=== PATIENT | male | born 1950 | race Caucasian/White ===

== ENCOUNTER 2021-06-28 12:33 | Outpatient (RCR) | payer MEDICARE, SELFPAY | END 2021-07-20 09:45 | disposition home or self-care (01) | LOC: HO.WCC 12:33 | PROVIDERS: PCP Internal Medicine; Visit Provider Surgery | DX: E11.621 Type 2 diabetes mellitus with foot ulcer (principal); L97.522 Non-pressure chronic ulcer of other part of left foot with fat layer exposed; E11.52 Type 2 diabetes mellitus with diabetic peripheral angiopathy with gangrene; I96 Gangrene, not elsewhere classified | CPT/HCPCS: 97597; 99213 ==

== ENCOUNTER 2021-07-15 10:02 | Inpatient (IN) | payer MEDICARE, SELFPAY ==
--- NOTE | ~2021-07-15 | XR_ITS ---
EXAMINATION: XR FOOT, LEFT CLINICAL INFORMATION: Left foot infection. Evaluate for osteomyelitis. COMPARISON: None TECHNIQUE: AP, lateral, and oblique views of the left foot. FINDINGS: Soft tissue swelling at the distal aspect of the 1st phalanx with a linear metallic density measuring up to 0.5 cm in length. Findings may represent a foreign body. There is an adjacent osseous erosion along the plantar/lateral aspect of the 1st distal phalanx measuring up to 0.5 cm. Findings are concerning for osteomyelitis. Joint space narrowing with marginal osteophytes at the 1st metatarsophalangeal and interphalangeal joints. Degenerative spurring along the dorsal midfoot. Plantar calcaneal spur. Atherosclerotic calcifications. XR/XR foot LT min 3V IMPRESSION: Soft tissue swelling at the distal aspect of the 1st phalanx with a linear possible metallic foreign body measuring up to 0.5 cm and adjacent osseous erosion. Findings are concerning for cellulitis and osteomyelitis. Degenerative arthritis at the dorsal midfoot as well as at the 1st metatarsophalangeal and interphalangeal joints.
--- NOTE | ~2021-07-15 | US_ITS ---
EXAMINATION: US NON-INVASIVE ASSESSMENT OF THE ARTERIES OF BOTH LOWER EXTREMITIES WITH PVR EXAM AND BILATERAL LOWER EXTREMITY DUPLEX Carlos Loving MD CLINICAL INFORMATION: Non-healing left foot ulcer. COMPARISON: None TECHNIQUE: Ankle pulse volume recordings, ankle pressure measurements and ankle brachial indices were obtained of the lower extremity arterial system bilaterally in addition to duplex Doppler techniques with wave form analysis and measurement of velocities in the common femoral, profunda femoral, superficial femoral, popliteal and tibial arteries. The study was performed only at rest. FINDINGS: AT REST: Right Le. The right ankle-brachial index is: 1.39. * >0.97-1.25 = normal - no significant arterial disease * 0.75-0.96 = mild peripheral arterial disease * 0.5-0.74 = moderate peripheral arterial disease * <0.50 = severe peripheral arterial disease 2. Right ankle pressure: normal. 3. Right ankle PVR waveform: normal. 4. Right direct duplex Doppler findings: Common Femoral: 96. Profunda Femoris: 104. Proximal SFA: 73. Mid SFA: 87. Distal SFA: 71. Popliteal: 54. Peroneal: 184. Tibial: 68. Mild plaque is present. Triphasic flow is present throughout with the exception of the posterior tibial artery where there is monophasic flow. Right groin lymph node measured 4.2 x 0.7 x 1.3 cm and appeared morphologically normal. Left Le. The left ankle-brachial index is: 1.38. * >0.97-1.25 = normal - no significant arterial disease * 0.75-0.96 = mild peripheral arterial disease * 0.5-0.74 = moderate peripheral arterial disease * <0.50 = severe peripheral arterial disease 2. Left ankle pressure: normal. 3. Left ankle PVR waveform: normal. 4. Left direct duplex Doppler findings: Common Femoral: 129. Profunda Femoris: 76. Proximal SFA: 94. Mid SFA: 111. Distal SFA: 97. Popliteal: 147. Tibial: 125. Mild plaque is present. Triphasic flow is present with monophasic flow seen from the mid SFA downwards with the exception of the distal SFA. Multiple left groin lymph nodes are present with the largest measuring 2.8 x 0.9 x 2.7 cm. US/US arterial duplex LE BI IMPRESSION: No convincing evidence of significant macroscopic vascular disease with normal ABIs bilaterally. Distal tibial disease is present.
--- NOTE | ~2021-07-15 | XR_ITS ---
EXAMINATION: XR CHEST CLINICAL INFORMATION: This is a 71-year-old male who is status post PICC line placement for atrial fibrillation and venous access. COMPARISON: None TECHNIQUE: Frontal view of the chest was obtained. FINDINGS: There is no pneumothorax. There is a right-sided PICC line with the tip at the cavoatrial junction. There is cardiomegaly. There is mild central venous prominence. There is likely linear atelectasis in the left lower lobe. There is a possible hiatal hernia present. There is no evidence of pneumonia. XR/XR chest 1V IMPRESSION: 1. The PICC line tip is seen at the cavoatrial junction is is ready to use. 2. Cardiomegaly.
--- NOTE | ~2021-07-15 | CT_ITS ---
EXAMINATION: CT FOOT WITH CONTRAST, LEFT CLINICAL INFORMATION: Foreign body. Osteomyelitis. COMPARISON: Left foot radiographs done earlier the same day. TECHNIQUE: Contiguous axial CT images of the left foot were obtained following the IV administration of 85 mL Omnipaque 350 contrast. Multiplanar reformats were provided and reviewed. This CT examination was performed using dose optimization techniques as appropriate, variously including the following: *Automated exposure control *Adjustment of mA and/or kV according to patient size (this includes techniques or standardized protocols for targeted exams where dose is matched to indication/reason for exam; i.e. extremities or head) *Use of iterative reconstruction technique DOSE: 185 mGy-cm. FINDINGS: Linear metallic density along the lateral plantar surface of the 1st distal phalanx measuring up to 0.8 cm in AP dimension and consistent with a radiopaque foreign body. This was seen on the prior radiographs. There is skin thickening adjacent to the distal 1st phalanx with soft tissue air within the nailbed. Findings are consistent with cellulitis. No organized fluid collection/abscess formation. There is a corticated defect along the plantar surface of the 1st metatarsal head, which could indicate chronic osteomyelitis. Skin thickening and soft tissue swelling/edema at the 2nd and 3rd toes without an organized fluid collection or abscess formation. More mild soft tissue edema and skin thickening within the 4th and 5th toes as well as along the plantar surface of the forefoot. Findings are consistent with cellulitis. No abscess formation. No additional osseous erosion to suggest acute osteomyelitis. Joint space narrowing with marginal osteophytes throughout the midfoot, most prominent at the medial cuneonavicular joint. Plantar and dorsal calcaneal enthesophytes. No concerning lytic or blastic osseous lesion. Multiple corticated ossifications adjacent to the medial malleolus consistent with remote fracture fragments. No acute fracture or dislocation. Prominent atherosclerotic calcifications. The visualized flexor and extensor tendons are intact. Diffuse muscle atrophy. CT/CT foot LT w con IMPRESSION: 1. Linear, metallic foreign body along the plantar/lateral aspect of the 1st distal phalanx as seen on the prior radiographs. Adjacent soft tissue swelling and edema consistent with cellulitis. No abscess formation. Corticated erosion along the plantar aspect of the 1st distal phalanx, which could indicate chronic osteomyelitis. 2. Additional soft tissue swelling and edema within the toes and plantar aspect of the forefoot, most prominent at the 2nd and 3rd toes which could represent cellulitis. No abscess formation. No additional osseous erosion. Early osteomyelitis may be occult on CT examination and if there is persistent clinical concern, MRI without and with contrast could help further evaluate.
[2021-07-15 10:10] VITALS: BP 145/78; PULSE 87; RESP 17; TEMP 36.5; O2SAT 98; BMI 32.5
--- NOTE | 2021-07-15 10:30 | ED_ITS ---
HPI - General Adult General Chief complaint: Wound/Laceration <MICKY Willoguhby - Last Filed: 07/15/21 13:38> Stated complaint: wound check <MICKY Willoughby - Last Filed: 07/15/21 13:38> Time Seen by Provider: 07/15/21 10:25 <MICKY Willoughby - Last Filed: 07/15/21 13:38> History of Present Illness HPI narrative: Patient presents today with a complaint of a worsening wound and worsening skin on left foot He has known gangrene of the 4th toe, he recently had a revascularization procedure which went well, but noted after the last 3 or 4 days some drainage from the area and some worsening redness He denies fever chills no dizziness no headache <MICKY Willoughby - Last Filed: 07/15/21 13:38> Related Data Home medications: Home Medications Medication Instructions Recorded Confirmed Lactobacillus rhamnosus GG 10 1 cap PO DAILY 07/15/21 07/15/21 billion cell capsule (Culturelle) atorvastatin 40 mg tablet 40 mg PO DAILY 07/15/21 07/15/21 carvedilol 25 mg tablet 25 mg PO BID 07/15/21 07/15/21 furosemide 40 mg tablet 40 mg PO BID 07/15/21 07/15/21 lorazepam 0.5 mg tablet 1 - 2 tab PO TID PRN 07/15/21 07/15/21 metformin 500 mg tablet,extended 4 tab PO DAILY 07/15/21 07/15/21 release 24 hr rivaroxaban 20 mg tablet (Xarelto) 1 tab PO BEDTIME 07/15/21 07/15/21 sacubitril 24 mg-valsartan 26 mg 1 tab PO BID 07/15/21 07/15/21 tablet (Entresto) sitagliptin 100 mg tablet (Januvia) 1 tab PO DAILY 07/15/21 07/15/21 <MICKY Willoughby - Last Filed: 07/15/21 13:38> Allergies/adverse reactions: Allergies Allergy/AdvReac Type Severity Reaction Status Date / Time No Known Allergies Allergy Verified 07/15/21 10:33 <MICKY Willoughby - Last Filed: 07/15/21 13:38> Review of Systems Review of Systems: Positive for left foot wound and infection as well as gangrene of the 4th toe Negatives are no fever no chills no dizziness no weakness no headache no neck pain no chest pain no shortness of breath no abdominal pain no nausea vomiting or diarrhea no changes to bowel or bladder <MICKY Willoughby - Last Filed: 07/15/21 13:38> Yes all other systems are reviewed and are negative <MICKY Willoughby - Last Filed: 07/15/21 13:38> PMFSH Past Medical History Source: nursing notes reviewed <MICKY Willoughby - Last Filed: 07/15/21 13:38> Medical History: Medical History Chronic systolic (congestive) heart failure Diabetes mellitus HLD (hyperlipidemia) HTN (hypertension) Paroxysmal atrial fibrillation Peripheral vascular disease Traumatic subdural hematoma <MICKY Willoughby - Last Filed: 07/15/21 13:38> Surgical History: Surgical History H/O angioplasty <MICKY Willoughby - Last Filed: 07/15/21 13:38> Family History Family History: Family History Father No problems noted. <MICKY Willoughby - Last Filed: 07/15/21 13:38> Social History Social History: Social History Alcohol intake: former Year quit: 1999 Patient Tobacco Use Status: Never used Tobacco Use of substances other than those prescribed or required for medical reasons: No Advance Directives: Yes Advance Directives Information Provided: Yes Advance Directives on File: No <MICKY Willoughby - Last Filed: 07/15/21 13:38> Physical Exam ED Vital Signs: Vital Signs - 24 hr 07/15/21 10:10 07/15/21 12:03 Temperature 97.7 F 98.1 F Pulse Rate 87 79 Respiratory Rate 17 18 Blood Pressure 145/78 H 147/69 H Pulse Oximetry 98 98 BMI result Body Mass Index 32.5 <MICKY Willoughby - Last Filed: 07/15/21 13:38> General appearance is no acute distress comfortable Head is normocephalic atraumatic Pupils equal round reactive to light, extraocular motions are intact Neck is supple Chest is clear to auscultation bilateral Heart no murmur Abdomen soft nontender Extremities full range of motion x4 The left foot has redness over dorsum of the foot there is an area of skin just proximal to the toes that is very red with some watery discharge, the 4th toe is black, but pulses are easily detected by Doppler, and patient can move all the toes Other extremities normal Neuro patient is A&O x3, balance is normal, motor is 5/5 x4 <MICKY Willoughby - Last Filed: 07/15/21 13:38> Course Course Course Narrative: Patient was sent for x-ray of the foot and there was evidence of osteomyelitis in the big toe Family also reports worsening redness over past several days so it was decided to admit patient for osteomyelitis and cellulitis of the left foot Lactate and white count were normal, renal function was normal, bilirubin was mildly elevated at 1.5 Case was discussed by text with hospitalist srinivasan and patient was admitted to medical service Patient requested that I contact Dr. mistry phon [phone] who is the vascular surgeon that revascularize the foot last week, he said the procedure had gone well but he had been concerned when the patient called this morning and had recommended go to the ER to discuss possible admission <MICKY Willoughby Last Filed: 07/15/21 13:38> Medical Decision Making Lab Data Lab results reviewed: Yes I reviewed the patient's lab results. <MICKY Willoughby Last Filed: 07/15/21 13:38> Result diagrams: : 07/15/21 12:21 07/15/21 12:21 <MICKY Willoughby Last Filed: 07/15/21 13:38> Labs: Lab Results 07/15/21 07/15/21 07/15/21 Range/Units 12:21 12:21 12:21 WBC 10.1 (4.8-10.8) X10*3/uL RBC 4.60 (4.60-5.80) X10*6/uL Hgb 12.7 L (14.0-18.0) g/dl Hct 39.0 L (42.0-52.0) % MCV 84.8 (80.0-98.0) fL MCH 27.6 (27.0-33.0) pg MCHC 32.6 (31.0-36.0) g/dl RDW 15.9 (11.0-16.0) % Plt Count 228 (160-400) X10*3/uL MPV 9.4 (9.4-12.4) fL Immature Gran % (Auto) 0.3 (0.0-0.4) % Neut % (Auto) 81.5 H (45-73) % Lymph % (Auto) 8.7 L (20-40) % [place] % (Auto) 8.0 (2-11) % Eos % (Auto) 1.0 (0-4) % Baso % (Auto) 0.5 (0-2) % Lymph # (Auto) 0.9 L (1.2-4.9) X10*3/uL [place] # (Auto) 0.8 (0.1-1.2) X10*3/uL Eos # (Auto) 0.1 (0.0-0.4) X10*3/uL Baso # (Auto) 0.1 (0.0-0.2) X10*3/uL Abs Immat Gran (auto) 0.03 (0.00-0.03) X10*3/uL Absolute Neuts (auto) 8.3 (2.0-8.3) x10*3/uL Absolute Nucleated RBC 0.000 (0.0-0.012) X10*3/uL Nucleated RBC % (auto) 0.0 (0.0-0.2) /100WBC Sodium 135 (135-145) mmol/L Potassium 4.7 (3.3-5.1) mmol/L Chloride 99 (96-108) mmol/L Carbon Dioxide 28 (22-29) mmol/L Anion Gap 13 (12-20) BUN 16 (9-16) mg/dL Creatinine 0.87 (0.5-1.4) mg/dL Estim Creat Clear Calc 107.8 Estimated GFR > 60 Random Glucose 191 H (60-115) mg/dL Lactic Acid 0.9 (0.5-2.0) mmol/L Calcium 9.3 (8.4-10.2) mg/dL Total Bilirubin 1.5 H (0.0-1.0) mg/dL Direct Bilirubin 0.9 H (0.0-0.5) mg/dL AST 22 (5-37) U/L ALT 27 (0-40) U/L Alkaline Phosphatase 121 H (39-117) U/L Total Protein 7.2 (6.5-8.0) g/dL Albumin 3.5 (3.5-5.0) g/dL COVID-19 (RADHA) (Negative) COVID-19 Clin Com 07/15/21 Range/Units 12:21 WBC (4.8-10.8) X10*3/uL RBC (4.60-5.80) X10*6/uL Hgb (14.0-18.0) g/dl Hct (42.0-52.0) % MCV (80.0-98.0) fL MCH (27.0-33.0) pg MCHC (31.0-36.0) g/dl RDW (11.0-16.0) % Plt Count (160-400) X10*3/uL MPV (9.4-12.4) fL Immature Gran % (Auto) (0.0-0.4) % Neut % (Auto) (45-73) % Lymph % (Auto) (20-40) % [place] % (Auto) (2-11) % Eos % (Auto) (0-4) % Baso % (Auto) (0-2) % Lymph # (Auto) (1.2-4.9) X10*3/uL [place] # (Auto) (0.1-1.2) X10*3/uL Eos # (Auto) (0.0-0.4) X10*3/uL Baso # (Auto) (0.0-0.2) X10*3/uL Abs Immat Gran (auto) (0.00-0.03) X10*3/uL Absolute Neuts (auto) (2.0-8.3) x10*3/uL Absolute Nucleated RBC (0.0-0.012) X10*3/uL Nucleated RBC % (auto) (0.0-0.2) /100WBC Sodium (135-145) mmol/L Potassium (3.3-5.1) mmol/L Chloride (96-108) mmol/L Carbon Dioxide (22-29) mmol/L Anion Gap (12-20) BUN (9-16) mg/dL Creatinine (0.5-1.4) mg/dL Estim Creat Clear Calc Estimated GFR Random Glucose (60-115) mg/dL Lactic Acid (0.5-2.0) mmol/L Calcium (8.4-10.2) mg/dL Total Bilirubin (0.0-1.0) mg/dL Direct Bilirubin (0.0-0.5) mg/dL AST (5-37) U/L ALT (0-40) U/L Alkaline Phosphatase (39-117) U/L Total Protein (6.5-8.0) g/dL Albumin (3.5-5.0) g/dL COVID-19 (RADHA) Negative (Negative) COVID-19 Clin Com See Note <MICKY Willoughby - Last Filed: 07/15/21 13:38> Discharge Plan Discharge Clinical Impression: Foot osteomyelitis, left, Cellulitis of foot, left <MICKY Willoughby - Last Filed: 07/15/21 13:38> Patient Disposition: Home, Self-Care <MICKY Willoughby - Last Filed: 07/15/21 13:38>
--- NOTE | 2021-07-15 11:21 | PC.NURSE ---
PEDAL PULSES AUDIBLE WITH DOPPLER.
[2021-07-15 12:03] VITALS: BP 147/69; PULSE 79; RESP 18; TEMP 36.7; O2SAT 98
[2021-07-15 12:26] LABS: MANUAL DIFF FLAG NO
[2021-07-15 12:27] LABS: Basophils Absolute Auto 0.1 X10*3/uL (0.0-0.2); Basophils Percent Auto 0.5 % (0-2); Eosinophils Absolute Auto 0.1 X10*3/uL (0.0-0.4); Hemoglobin 12.7 g/dl (14.0-18.0); Imm Gran Abs Auto 0.03 X10*3/uL (0.00-0.03); Imm Gran Pct Auto 0.3 % (0.0-0.4); Lymphocytes Absolute Auto 0.9 X10*3/uL (1.2-4.9); Lymphocytes Percent Auto 8.7 % (20-40); Mean Corpuscular HGB Conc 32.6 g/dl (31.0-36.0); Mean Corpuscular Hemoglobin 27.6 pg (27.0-33.0); Mean Corpuscular Volume 84.8 fL (80.0-98.0); Mean Platelet Volume 9.4 fL (9.4-12.4); Monocytes Absolute Auto 0.8 X10*3/uL (0.1-1.2); Neutrophils Absolute Auto 8.3 x10*3/uL (2.0-8.3); Neutrophils Percent Auto 81.5 % (45-73); Platelet Count 228 X10*3/uL (160-400); Red Cell Distribution Width 15.9 % (11.0-16.0); White Blood Count 10.1 X10*3/uL (4.8-10.8)
[2021-07-15 12:37] LABS: Lactic Acid 0.9 mmol/L (0.5-2.0)
[2021-07-15] MEDS: Piperacillin Sodium/Tazobactam 3.375 GM in 0.9 % Sodium Chloride 50 ML IV ×2 (12:40→20:17)
[2021-07-15 12:48] LABS: COVID-19 Test Negative (Negative); IDNOW Serial# 16C4AD1C
[2021-07-15 13:19] LABS: Alanine Aminotransferase 27 U/L (0-40); Albumin Level 3.5 g/dL (3.5-5.0); Alkaline Phosphatase 121 U/L (39-117); Anion Gap 13 (12-20); Aspartate Amino Transferase 22 U/L (5-37); Bilirubin Direct 0.9 mg/dL (0.0-0.5); Bilirubin Total 1.5 mg/dL (0.0-1.0); Blood Urea Nitrogen 16 mg/dL (9-16); Calcium 9.3 mg/dL (8.4-10.2); Carbon Dioxide 28 mmol/L (22-29); Chloride 99 mmol/L (96-108); Creatinine Clr Calc Pharmacy 107.8; Estimated Glomerular Filt Rate > 60; Glucose Random 191 mg/dL (60-115); Potassium 4.7 mmol/L (3.3-5.1); Sodium 135 mmol/L (135-145); Total Protein 7.2 g/dL (6.5-8.0)
--- NOTE | 2021-07-15 13:38 | PC.NURSE ---
REPORT GIVEN TO VAUGHN KILPATRICK. PT MOVED TO MAIN ED FOR ADMISSION.
--- NOTE | 2021-07-15 13:55 | PHA.MEDREC ---
Pharmacy Consult ? Medication Reconciliation Pharmacy has completed the medication reconciliation.
--- NOTE | 2021-07-15 14:40 | PM.IMHP ---
History of Present Illness Date of Service: 07/15/21 Chief Complaint: worsening erythema left foot 71M with pmh PVD with left 4th toe dry gangrene s/p angioplasty 5 days ptp, presented with increasing area of erythema of left foot dorsum. Patient's left foot has been swollen erythematous for about 1 month, he has had dry gangrene of the 4th phalanx for about 2 weeks, he is following vascular and recently had an angioplasty. Patient is coming to the ED today due to increased area of the erythema over his left dorsum, he reports that it is less erythematous overall but The area has spread to include medial side of his 5th phalanx. Patient denies any fevers or chills. In ED x-ray showed soft tissue swelling of the distal aspect of the 1st phalanx with a linear possible metallic foreign body concerning for cellulitis and osteomyelitis, patient's erythema does not extend to this area, it does not remember stepping on any metallic body, however, he does have some neuropathy. Review of Systems Review of Systems: Constitutional: Denies fever, denies Chills Eyes: denies blurry vision ENT: denies sore throat CVS: denies chest pain Respiratory: Denies dyspnea GI: no abdominal pain : denies dysuria MSK: denies neck pain Skin: Worsening erythema Neuro: denies specific motor weakness Psych: denies suicidal ideation Endocrine: denies heat/cold intolerance Hematologic: denies easy bleeding Allergy: denies hives [facility] Medical History Chronic systolic (congestive) heart failure Diabetes mellitus HLD (hyperlipidemia) HTN (hypertension) Paroxysmal atrial fibrillation Peripheral vascular disease Traumatic subdural hematoma Family History Father No problems noted. Surgical History H/O angioplasty Social History Alcohol intake: former Year quit: 1999 Patient Tobacco Use Status: Never used Tobacco Use of substances other than those prescribed or required for medical reasons: No Advance Directives: Yes Advance Directives Information Provided: Yes Advance Directives on File: No Meds Allergies Allergy/AdvReac Type Severity Reaction Status Date / Time No Known Allergies Allergy Verified 07/15/21 10:33 Active Medications: Current Medications Atorvastatin Calcium (Atorvastatin Calcium 40 Mg Tablet) 40 mg PO DAILY [facility] Carvedilol (Carvedilol 25 Mg Tablet) 25 mg PO BID [place]; Protocol Dextrose (Dextrose 50 % 25 Gm/50 Ml Vial) 25 gm IVPUSH Q15M PRN; Protocol PRN Reason: per Hypoglycemia Standing Ord. Furosemide (Furosemide 40 Mg Tablet) 40 mg PO BID [place]; Protocol Glucose (Glucose Gel 15 Gm Gel..Gram.) 15 gm PO Q15M PRN; Protocol PRN Reason: per Hypoglycemia Standing Ord. Vancomycin HCl 1,000 mg/ (Sodium Chloride) 270 mls @ 270 mls/hr IV Q12H [place] Piperacillin Sod/Tazobactam (Sod 3.375 gm/ Sodium Chloride) 50 mls @ 100 mls/hr IV Q6H [facility] Insulin Human Lispro (Insulin Lispro 100 Unit/Ml 3 Ml Vial) 0 unit SUBCUT QIDACHS [place]; Protocol Lorazepam (Lorazepam 1 Mg Tablet) 1 mg PO TID PRN PRN Reason: Anxiety Pharmacy Consult (Consult Rx Vancomycin Dosing) 1 each MISCELLANE DAILY PRN PRN Reason: Consult order Pharmacy Consult (Consult Rx Perform Med Rec) 1 each MISCELLANE ONCE PRN PRN Reason: Consult order Pharmacy Consult (Consult Rx Vancomycin Dosing) 1 each MISCELLANE DAILY PRN PRN Reason: Consult order Rivaroxaban (Rivaroxaban 20 Mg Tablet) 20 mg PO BEDTIME [facility] Sacubitril/Valsartan (Sacubitril/Valsartan 1 Tab Tablet) 1 tab PO BID [facility]; Protocol Sitagliptin Phosphate (Sitagliptin Phosphate 100 Mg Tablet) 100 mg PO DAILY [facility] Sodium Chloride (0.9 % Sodium Chloride Flush 3 Ml Syringe) 3 ml IVFLUSH QSHIFT [facility] Home Medications Medication Instructions Recorded Confirmed Last Taken Type Lactobacillus rhamnosus GG 10 1 cap PO DAILY 07/15/21 07/15/21 07/15/21 History billion cell capsule (Culturelle) atorvastatin 40 mg tablet 40 mg PO DAILY 07/15/21 07/15/21 07/15/21 History carvedilol 25 mg tablet 25 mg PO BID 07/15/21 07/15/21 07/15/21 History furosemide 40 mg tablet 40 mg PO BID 07/15/21 07/15/2122 History lorazepam 0.5 mg tablet 1 - 2 tab PO TID PRN 07/15/21 07/15/21 Unknown History metformin 500 mg tablet,extended 4 tab PO DAILY 07/15/21 07/15/21 Unknown History release 24 hr rivaroxaban 20 mg tablet (Xarelto) 1 tab PO BEDTIME 07/15/21 07/15/21 07/14/21 History sacubitril 24 mg-valsartan 26 mg 1 tab PO BID 07/15/21 07/15/21 07/14/21 History tablet (Entresto) sitagliptin 100 mg tablet (Januvia) 1 tab PO DAILY 07/15/21 07/15/21 07/14/21 History Physical Exam Vital Signs and Narrative: Vital Signs: Last Vital Signs Temp 98.1 F 07/15/21 12:03 Pulse 79 07/15/21 12:03 Resp 18 07/15/21 12:03 BP 147/69 H 07/15/21 12:03 Pulse Ox 98 07/15/21 12:03 BMI result Body Mass Index 32.5 General: no acute distress HEENT: atraumatic Neck: normal to visual inspection CVS: S1, S2, RRR Resp: CTA bilateral Chest: non tender GI: soft, non tender, non distended : no CVA tenderness Skin: dry gangrene of left 4th phalanx, dorsum of foot with erythema, see picture Extremities: trace edema of left foot Neuro: Oriented X3, grossly intact Psych: cooperative Results Labs CBC and Chem 7: 07/15/21 12:21 07/15/21 12:21 Labs: Laboratory Results - last 24 hr 07/15/21 07/15/21 07/15/21 12:21 12:21 12:21 MCV 84.8 MCH 27.6 MCHC 32.6 RDW 15.9 Plt Count 228 MPV 9.4 Immature Gran % (Auto) 0.3 Neut % (Auto) 81.5 H Lymph % (Auto) 8.7 L [place] % (Auto) 8.0 Eos % (Auto) 1.0 Baso % (Auto) 0.5 Lymph # (Auto) 0.9 L [place] # (Auto) 0.8 Eos # (Auto) 0.1 Baso # (Auto) 0.1 Abs Immat Gran (auto) 0.03 Absolute Neuts (auto) 8.3 Absolute Nucleated RBC 0.000 Nucleated RBC % (auto) 0.0 Anion Gap 13 Estim Creat Clear Calc 107.8 Estimated GFR > 60 Random Glucose 191 H Lactic Acid 0.9 Calcium 9.3 Total Bilirubin 1.5 H Direct Bilirubin 0.9 H AST 22 ALT 27 Alkaline Phosphatase 121 H Total Protein 7.2 Albumin 3.5 COVID-19 (RADHA) COVID-19 Clin Com 07/15/21 12:21 MCV MCH MCHC RDW Plt Count MPV Immature Gran % (Auto) Neut % (Auto) Lymph % (Auto) [place] % (Auto) Eos % (Auto) Baso % (Auto) Lymph # (Auto) [place] # (Auto) Eos # (Auto) Baso # (Auto) Abs Immat Gran (auto) Absolute Neuts (auto) Absolute Nucleated RBC Nucleated RBC % (auto) Anion Gap Estim Creat Clear Calc Estimated GFR Random Glucose Lactic Acid Calcium Total Bilirubin Direct Bilirubin AST ALT Alkaline Phosphatase Total Protein Albumin COVID-19 (RADHA) Negative COVID-19 Clin Com See Note Imaging Radiologist's Impressions: Impressions Foot X-Ray 07/15/21 10:42 IMPRESSION: Soft tissue swelling at the distal aspect of the 1st phalanx with a linear possible metallic foreign body measuring up to 0.5 cm and adjacent osseous erosion. Findings are concerning for cellulitis and osteomyelitis. Degenerative arthritis at the dorsal midfoot as well as at the 1st metatarsophalangeal and interphalangeal joints. Assessment and Plan (1) Peripheral vascular disease: Status: Acute Plan 71M presented with worsening erythema of left dorsum of foot. Left foot diabetic/vascular dry gangrene with associated stasis dermatitis with some superimposed cellulitis status post angioplasty last week continue Xarelto and statin vancomycin Zosyn id eval likely eventual plan for amputation of 4th phalanx cellulitis and possible osteomyelitis of left 1st toe with foreign body will obtain CT with contrast ID and surgery eval antibiotics as above chronic systolic CHF continue carvedilol, Entresto, furosemide diabetes hold metformin continue Januvia insulin sliding scale hypertension carvedilol, valsartan (entresto) hyperlipidemia statin paroxysmal atrial fibrillation carvedilol and Xarelto DVT prophylaxis-on Xarelto full code due to comorbidities of diabetes and atherosclerotic disease patient is high risk to progressed sepsis and will require close monitoring on IV antibiotics, therefore likely to need at least 2 midnights in the hospital. Quality Stroke Does the patient have a stroke diagnosis?: No VTE Prior VTE?: No VTE Risk Level:: Medical - moderate - high VTE Device Contraindication: Treatment Not Indicated VTE Drug Contraindication: N/A - Med Ordered
--- NOTE | 2021-07-15 14:55 | P.CONGS_ITS ---
History of Present Illness Consult details Consult date: 07/15/21 Narrative: 71M referred for osteomyelitis of the left foot. He was first noticed to have some redness of the 5th toe and discoloration of the 4th toe about 3 weeks ago. There was a skin break in the 4-5th interdigital space then so he was sent to a Wound Care doctor who eventually sent him to a Vascular Surgeon. He was di agnosed to have occlusive disease of his left lower leg and he underwent endovascular surgery in a clinic in [place] 3 days ago to restore flow. He apparently has had dry gangrene of the 4th toe before that. He has had redness of the dorsum of the left foot for 2-3 weeks now as well.. His had noticed this morning that the redness seems to have improved already but she mentioned some weeping of the skin she he was brought to the ED. He denies alex on the foot at this time. Review of Systems Constitutional: Constitutional: Denies chills and Denies fever(s) Cardiovascular: Cardiovascular: Denies chest pain, Denies dyspnea and Denies dyspnea on exertion Respiratory: Respiratory: Denies cough, Denies dyspnea and Denies dyspnea on exertion Gastrointestinal: Gastrointestinal: Denies hematochezia and Denies change in bowel habits Genitourinary: Genitourinary: Denies hematuria and Denies difficulty urinating Musculoskeletal: Musculoskeletal: Denies back pain and Denies limited range of motion Neurologic: Denies focal weakness and Denies convulsions Psychiatric: Psychiatric: Denies depression and Denies mood swings PMFSH Past Medical History Medical History (Updated 07/16/21 @ 10:19 by Carson Calderon MD) Chronic systolic (congestive) heart failure Diabetes mellitus Dry gangrene HLD (hyperlipidemia) HTN (hypertension) Paroxysmal atrial fibrillation Peripheral vascular disease Traumatic subdural hematoma Family History Family History Father No problems noted. Surgical History Surgical History H/O angioplasty Social History Social History Household Members: Spouse Housing: House Do you presently have visiting nurse or other home services: No Alcohol intake: former Year quit: 1999 Patient Tobacco Use Status: Never used Tobacco Advance Directives Date on File: 07/15/21 service: No Current occupational status: retired Meds Allergies Allergy/AdvReac Type Severity Reaction Status Date / Time No Known Allergies Allergy Verified 07/15/21 10:33 Active Medications: Current Medications Atorvastatin Calcium (Atorvastatin Calcium 40 Mg Tablet) 40 mg PO DAILY [facility] Carvedilol (Carvedilol 25 Mg Tablet) 25 mg PO BID [facility]; Protocol Dextrose (Dextrose 50 % 25 Gm/50 Ml Vial) 25 gm IVPUSH Q15M PRN; Protocol PRN Reason: per Hypoglycemia Standing Ord. Furosemide (Furosemide 40 Mg Tablet) 40 mg PO BID [facility]; Protocol Glucose (Glucose Gel 15 Gm Gel..Gram.) 15 gm PO Q15M PRN; Protocol PRN Reason: per Hypoglycemia Standing Ord. Vancomycin HCl 1,000 mg/ (Sodium Chloride) 270 mls @ 270 mls/hr IV Q12H [facility] Piperacillin Sod/Tazobactam (Sod 3.375 gm/ Sodium Chloride) 50 mls @ 100 mls/hr IV Q6H [facility] Insulin Human Lispro (Insulin Lispro 100 Unit/Ml 3 Ml Vial) 0 unit SUBCUT QIDACHS [facility]; Protocol Lorazepam (Lorazepam 1 Mg Tablet) 1 mg PO TID PRN PRN Reason: Anxiety Pharmacy Consult (Consult Rx Vancomycin Dosing) 1 each MISCELLANE DAILY PRN PRN Reason: Consult order Pharmacy Consult (Consult Rx Perform Med Rec) 1 each MISCELLANE ONCE PRN PRN Reason: Consult order Pharmacy Consult (Consult Rx Vancomycin Dosing) 1 each MISCELLANE DAILY PRN PRN Reason: Consult order Rivaroxaban (Rivaroxaban 20 Mg Tablet) 20 mg PO BEDTIME [facility] Sacubitril/Valsartan (Sacubitril/Valsartan 1 Tab Tablet) 1 tab PO BID [facility]; Protocol Sitagliptin Phosphate (Sitagliptin Phosphate 100 Mg Tablet) 100 mg PO DAILY [facility] Sodium Chloride (0.9 % Sodium Chloride Flush 3 Ml Syringe) [facility] Medications Medication Instructions Recorded Confirmed Last Taken Type Lactobacillus rhamnosus GG 10 1 cap PO DAILY 07/15/21 07/15/21 07/15/21 History billion cell capsule (Culturelle) atorvastatin 40 mg tablet 40 mg PO DAILY 07/15/21 07/15/21 07/15/21 History carvedilol 25 mg tablet 25 mg PO BID 07/15/21 07/15/21 07/15/21 History furosemide 40 mg tablet 40 mg PO BID 07/15/21 07/15/21 07/15/21 History lorazepam 0.5 mg tablet 1 - 2 tab PO TID PRN 07/15/21 07/15/21 Unknown History metformin 500 mg tablet,extended 4 tab PO DAILY 07/15/21 07/15/21 Unknown History release 24 hr rivaroxaban 20 mg tablet (Xarelto) 1 tab PO BEDTIME 07/15/21 07/15/21 07/14/21 History sacubitril 24 mg-valsartan 26 mg 1 tab PO BID 07/15/21 07/15/21 07/14/21 History tablet (Entresto) sitagliptin 100 mg tablet (Januvia) 1 tab PO DAILY 07/15/21 07/15/21 07/14/21 History Physical Exam Vital Signs: Vital Signs: Last Vital Signs Temp 98.1 F 07/15/21 12:03 Pulse 79 07/15/21 12:03 Resp 18 07/15/21 12:03 BP 147/69 H 07/15/21 12:03 Pulse Ox 98 07/15/21 12:03 BMI result Body Mass Index 32.5 Const: General: comfortable and no acute distress Orientation/consciousness: patient oriented x3 Neck: Neck: Yes no lymphadenopathy Resp: Auscultation: clear to auscultation bilaterally Cardio: Rhythm: regular rhythm GI: Palpation (GI): Soft to palpation, nontender and no guarding Neuro: General: patient oriented x3 Extrem: Other: redness of the dorsum of the left foot distally, with skin flaking, no induration or fluctuance; dry gangrene of the 4th toe, with open wound between 3rd-4th and 4th-5th interspace, no redness or obvious infection of the 1st toe, no drainage no necrotizing process Results Labs Result diagrams: 07/16/21 06:07 07/16/21 06:07 Labs: Abnormal lab results 07/15/21 07/15/21 Range/Units 12:21 12:21 Hgb 12.7 L (14.0-18.0) g/dl Hct 39.0 L (42.0-52.0) % Neut % (Auto) 81.5 H (45-73) % Lymph % (Auto) 8.7 L (20-40) % Lymph # (Auto) 0.9 L (1.2-4.9) X10*3/uL Random Glucose 191 H (60-115) mg/dL Total Bilirubin 1.5 H (0.0-1.0) mg/dL Direct Bilirubin 0.9 H (0.0-0.5) mg/dL Alkaline Phosphatase 121 H (39-117) U/L Short CBC 07/15/21 Range/Units 12:21 WBC 10.1 (4.8-10.8) X10*3/uL Hgb 12.7 L (14.0-18.0) g/dl Hct 39.0 L (42.0-52.0) % Plt Count 228 (160-400) X10*3/uL BMP 07/15/21 12:21 Sodium 135 Potassium 4.7 Chloride 99 Carbon Dioxide 28 BUN 16 Creatinine 0.87 Calcium 9.3 Liver Function 07/15/21 Range/Units 12:21 Total Bilirubin 1.5 H (0.0-1.0) mg/dL Direct Bilirubin 0.9 H (0.0-0.5) mg/dL AST 22 (5-37) U/L ALT 27 (0-40) U/L Alkaline Phosphatase 121 H (39-117) U/L Albumin 3.5 (3.5-5.0) g/dL All other labs normal. Assessment and Plan (1) Cellulitis of foot, left: Status: Acute He has some redness of the left foot as described above. His xray shows a fine 5 mm foreign body in the lateral aspect of the ital phalanx of the first toe with adjcent for osseous erosion, possibly with osteomyelitis. This toe apparently has not bothered him at all. He does not recall hacing any trauma to this big toe nor any foreign body in the past. He has been sent for a CT scan. I would recommend Vascular SUrgery consult in view of his revascularization procedure 3 days ago. There is no evidence of any necrotizing process. The 4th toe will eventually need to be amputated. ID has been consulted. I will follow along while he is in the hospital. He looks comfortable and does not appear toxic. He actually says the entire foot looks better compared to a few days ago with regard to the redness. Procedures Date of Service Date of Service: 07/15/21
[2021-07-15] MEDS: iohexoL 350 MG/ML 100 ML INFUS..BTL IV (15:05)
[2021-07-15 16:00] VITALS: BP 142/81; PULSE 85; RESP 17; TEMP 36.4; O2SAT 98
[2021-07-15 16:45] LABS: Glucose, Whole Blood 172 mg/dL (60-115)
[2021-07-15 17:30] VITALS: BP 133/80; PULSE 78; RESP 18; TEMP 37; O2SAT 98
[2021-07-15] MEDS: 0.9 % Sodium Chloride Flush 3 ML SYRINGE IVFLUSH ×2 (17:50→20:53)
--- NOTE | 2021-07-15 17:53 | PC.NURSE ---
pt POC 172. Refused sliding scale insulin. Explained that metformin was being held so sliding scale insulin put in place for DM management. pt still refused insulin. Dr Packer made aware.
--- NOTE | 2021-07-15 18:44 | PC.NURSE ---
1800: Pt states he uses CPAP occasionally at home. He states he called his and she will bring it in for him.
[2021-07-15 19:48] VITALS: BP 144/84; PULSE 79; RESP 18; TEMP 37; O2SAT 98
[2021-07-15 20:50] LABS: Glucose, Whole Blood 164 mg/dL (60-115)
[2021-07-15] MEDS: Furosemide 40 MG TABLET PO (20:53)
[2021-07-15] MEDS: Sacubitril/Valsartan 24/26 1 TAB TABLET PO (20:53)
[2021-07-15] MEDS: Rivaroxaban 20 MG TABLET PO (20:53)
[2021-07-15] MEDS: carvediloL 25 MG TABLET PO (20:53)
[2021-07-16] VITALS (7 sets, daily range): BP systolic 118–144; BP diastolic 69–84; PULSE 70–91; RESP 16–18; TEMP 35.2–36.8; O2SAT 96–99
[2021-07-16] MEDS: vancomycin HCL 1,000 MG in 0.9 % Sodium Chloride 250 ML 270 MG IV (00:59)
[2021-07-16] MEDS: Piperacillin Sodium/Tazobactam 3.375 GM in 0.9 % Sodium Chloride 50 ML IV ×4 (02:12→20:16)
[2021-07-16 06:25] LABS: Hemoglobin 11.6 g/dl (14.0-18.0); Mean Corpuscular HGB Conc 31.4 g/dl (31.0-36.0); Mean Corpuscular Hemoglobin 27.2 pg (27.0-33.0); Mean Corpuscular Volume 86.9 fL (80.0-98.0); Mean Platelet Volume 9.6 fL (9.4-12.4); Platelet Count 224 X10*3/uL (160-400); Red Blood Count 4.26 X10*6/uL (4.60-5.80); White Blood Count 8.4 X10*3/uL (4.8-10.8)
[2021-07-16 07:13] LABS: Anion Gap 13 (12-20); Blood Urea Nitrogen 14 mg/dL (9-16); Calcium 8.7 mg/dL (8.4-10.2); Carbon Dioxide 26 mmol/L (22-29); Chloride 101 mmol/L (96-108); Creatinine Clr Calc Pharmacy 114.3; Estimated Glomerular Filt Rate > 60; Glucose Fasting 115 mg/dL (60-99); Potassium 4.1 mmol/L (3.3-5.1); Sodium 136 mmol/L (135-145)
[2021-07-16] MEDS: SITagliptin Phosphate 100 MG TABLET PO (07:55)
[2021-07-16] MEDS: Furosemide 40 MG TABLET PO ×2 (07:55→20:16)
[2021-07-16] MEDS: Atorvastatin Calcium 40 MG TABLET PO (07:55)
[2021-07-16] MEDS: carvediloL 25 MG TABLET PO ×2 (07:56→20:15)
[2021-07-16] MEDS: Sacubitril/Valsartan 24/26 1 TAB TABLET PO ×2 (07:56→20:16)
[2021-07-16] MEDS: 0.9 % Sodium Chloride Flush 3 ML SYRINGE IVFLUSH ×2 (07:56→15:06)
[2021-07-16 08:20] LABS: Glucose, Whole Blood 146 mg/dL (60-115)
--- NOTE | 2021-07-16 08:46 | P.PNIM_ITS ---
Subjective Subjective Date of Service: 07/16/21 Interval History: cc: ertyhema of dorsum of left foot interval history: erythema improved Cardiovascular Cardiovascular: Reports no additional cardiovascular complaints Respiratory Respiratory: Reports no additional respiratory complaints Physical Exam Vital Signs: Vital Signs: Last Vital Signs Temp 98.3 F 07/16/21 07:55 Pulse 85 07/16/21 07:55 Resp 18 07/16/21 07:55 BP 143/83 H 07/16/21 07:55 Pulse Ox 97 07/16/21 07:55 BMI result Body Mass Index 32.5 General: AO X 3, no acute distress Resp: CTA bilateral, no accessory muscles used CVS: S1,S2,RRR GI: soft, non tender, non distended Neuro: motor grossly intact, alert Psych: appropriate affect, appropriate insight left foot: 4th toe dry gangrene, dorsum erythema, 1st toe unremarkable Objective Data Active Medications Atorvastatin Calcium (Atorvastatin Calcium 40 Mg Tablet) 40 mg PO DAILY [facility] Last Admin: 07/16/21 07:55 Dose: 40 mg Documented by: LUDIN Carvedilol (Carvedilol 25 Mg Tablet) 25 mg PO BID [facility]; Protocol Last Admin: 07/16/21 07:56 Dose: 25 mg Documented by: LUDIN Dextrose (Dextrose 50 % 25 Gm/50 Ml Vial) 25 gm IVPUSH Q15M PRN; Protocol PRN Reason: per Hypoglycemia Standing Ord. Furosemide (Furosemide 40 Mg Tablet) 40 mg PO BID [facility] [place]; Protocol Last Admin: 07/16/21 07:55 Dose: 40 mg Documented by: LUDIN Glucose (Glucose Gel 15 Gm Gel..Gram.) 15 gm PO Q15M PRN; Protocol PRN Reason: per Hypoglycemia Standing Ord. Vancomycin HCl 1,000 mg/ (Sodium Chloride) 270 mls @ 270 mls/hr IV Q12H [facility] [place] Last Infusion: 07/16/21 02:10 Dose: 0 mls/hr Documented by: ZAINAB Piperacillin Sod/Tazobactam (Sod 3.375 gm/ Sodium Chloride) 50 mls @ 100 mls/hr IV Q6H [facility] [place] Last Admin: 07/16/21 08:01 Dose: 100 mls/hr Documented by: LUDIN Insulin Human Lispro (Insulin Lispro 100 Unit/Ml 3 Ml Vial) 0 unit SUBCUT QIDACHS [facility] [place]; Protocol Last Admin: 07/16/21 08:26 Dose: Not Given Documented by: LUDIN Non-Admin Reason: No Insulin Coverage Lorazepam (Lorazepam 1 Mg Tablet) 1 mg PO TID PRN PRN Reason: Anxiety Pharmacy Consult (Consult Rx Vancomycin Dosing) 1 each MISCELLANE DAILY PRN PRN Reason: Consult order Pharmacy Consult (Consult Rx Perform Med Rec) 1 each MISCELLANE ONCE PRN PRN Reason: Consult order Pharmacy Consult (Consult Rx Vancomycin Dosing) 1 each MISCELLANE DAILY PRN PRN Reason: Consult order Rivaroxaban (Rivaroxaban 20 Mg Tablet) 20 mg PO BEDTIME [facility] [place] Last Admin: 07/15/21 20:53 Dose: 20 mg Documented by: ZAINAB Sacubitril/Valsartan (Sacubitril/Valsartan 1 Tab Tablet) 1 tab PO BID [facility] [place]; Protocol Last Admin: 07/16/21 07:56 Dose: 1 tab Documented by: LUDIN Sitagliptin Phosphate (Sitagliptin Phosphate 100 Mg Tablet) 100 mg PO DAILY [facility] [place] Last Admin: 07/16/21 07:55 Dose: 100 mg Documented by: LUDIN Sodium Chloride (0.9 % Sodium Chloride Flush 3 Ml Syringe) 3 ml IVFLUSH QSHIFT [facility] [place] Last Admin: 07/16/21 07:56 Dose: 3 ml Documented by: LUDIN Labs CBC & Chem 7: 07/16/21 06:07 07/16/21 06:07 Labs: Laboratory Results - last 24 hr 07/15/21 07/15/21 07/15/21 12:21 12:21 12:21 MCV 84.8 MCH 27.6 MCHC 32.6 RDW 15.9 Plt Count 228 MPV 9.4 Immature Gran % (Auto) 0.3 Neut % (Auto) 81.5 H Lymph % (Auto) 8.7 L [place] % (Auto) 8.0 Eos % (Auto) 1.0 Baso % (Auto) 0.5 Lymph # (Auto) 0.9 L [place] # (Auto) 0.8 Eos # (Auto) 0.1 Baso # (Auto) 0.1 Abs Immat Gran (auto) 0.03 Absolute Neuts (auto) 8.3 Absolute Nucleated RBC 0.000 Nucleated RBC % (auto) 0.0 Anion Gap 13 Estim Creat Clear Calc 107.8 Estimated GFR > 60 POC Glucose Random Glucose 191 H Fasting Glucose Lactic Acid 0.9 Calcium 9.3 Total Bilirubin 1.5 H Direct Bilirubin 0.9 H AST 22 ALT 27 Alkaline Phosphatase 121 H Total Protein 7.2 Albumin 3.5 COVID-19 ([facility]) COVID-19 Clin Com 07/15/21 07/15/21 07/15/21 12:21 16:40 20:43 MCV MCH MCHC RDW Plt Count MPV Immature Gran % (Auto) Neut % (Auto) Lymph % (Auto) [place] % (Auto) Eos % (Auto) Baso % (Auto) Lymph # (Auto) [place] # (Auto) Eos # (Auto) Baso # (Auto) Abs Immat Gran (auto) Absolute Neuts (auto) Absolute Nucleated RBC Nucleated RBC % (auto) Anion Gap Estim Creat Clear Calc Estimated GFR POC Glucose 172 H 164 H Random Glucose Fasting Glucose Lactic Acid Calcium Total Bilirubin Direct Bilirubin AST ALT Alkaline Phosphatase Total Protein Albumin COVID-19 ([facility]) Negative COVID-19 Clin Com See Note 07/16/21 07/16/21 07/16/21 06:07 06:07 07:57 MCV 86.9 MCH 27.2 MCHC 31.4 RDW 16.0 Plt Count 224 MPV 9.6 Immature Gran % (Auto) Neut % (Auto) Lymph % (Auto) [place] % (Auto) Eos % (Auto) Baso % (Auto) Lymph # (Auto) [place] # (Auto) Eos # (Auto) Baso # (Auto) Abs Immat Gran (auto) Absolute Neuts (auto) Absolute Nucleated RBC 0.000 Nucleated RBC % (auto) 0.0 Anion Gap 13 Estim Creat Clear Calc 114.3 Estimated GFR > 60 POC Glucose 146 H Random Glucose Fasting Glucose 115 H Lactic Acid Calcium 8.7 D Total Bilirubin Direct Bilirubin AST ALT Alkaline Phosphatase Total Protein Albumin COVID-19 ([facility]) COVID-19 Clin Com Assessment and Plan (1) Peripheral vascular disease: Status: Acute Plan 71M? presented with worsening erythema of left dorsum of foot. ? Left foot diabetic/vascular dry gangrene with associated stasis dermatitis with some superimposed cellulitis ?status post angioplasty last week ?continue Xarelto and statin ?vancomycin, Zosyn follow up ID, vascular eventual plan for amputation of 4th phalanx ?cellulitis and possible osteomyelitis of left 1st toe with foreign body CT showing metallic foreign body, cellulitis, possible chronic OM ?ID ?antibiotics as above ? need to remove foreign body ?chronic systolic CHF ?continue carvedilol, Entresto,? furosemide ?diabetes ?holding metformin ?continue Januvia ?insulin sliding scale (patient not interested unless significantly hyperglycemic) monitor poc ?hypertension ?carvedilol,? valsartan (entresto) ?hyperlipidemia ?statin ?paroxysmal atrial fibrillation ?carvedilol and Xarelto ?DVT prophylaxis-on Xarelto ?full code reason for continued hospitalization: requiring iv abx for OM, possible surgical intervention, risk for decompensation to sepsis due to DM, vascular disease Quality Stroke Does the patient have a stroke diagnosis?: No VTE Prior VTE?: No VTE Risk Level:: Medical - moderate - high VTE Device Contraindication: Treatment Not Indicated VTE Drug Contraindication: N/A - Med Ordered
--- NOTE | 2021-07-16 10:18 | P.PNGS_ITS ---
Subjective Subjective Date of Service: 07/17/21 Interval history: no complaints denies pain on left foot denies drainage Physical Exam Vital Signs: Vital Signs: Last Vital Signs Temp 98.3 F 07/16/21 07:55 Pulse 85 07/16/21 07:55 Resp 18 07/16/21 07:55 BP 143/83 H 07/16/21 07:55 Pulse Ox 97 07/16/21 07:55 BMI result Body Mass Index 32.5 Const: General: comfortable and no acute distress Resp: Effort & Inspection: normal respiratory effort Cardio: Rate: regular rate GI: Palpation (GI): Soft to palpation and nontender Extrem: Other: cellulitis on dorsum of left foot, dry gangrene 4th toe, swelling, redness of 5th toe; no obvious inflammatory changes on big toe Objective Data Active Medications Atorvastatin Calcium (Atorvastatin Calcium 40 Mg Tablet) 40 mg PO DAILY [facility] Last Admin: 07/16/21 07:55 Dose: 40 mg Documented by: LUDIN Carvedilol (Carvedilol 25 Mg Tablet) 25 mg PO BID [facility]; Protocol Last Admin: 07/16/21 07:56 Dose: 25 mg Documented by: LUDIN Dextrose (Dextrose 50 % 25 Gm/50 Ml Vial) 25 gm IVPUSH Q15M PRN; Protocol PRN Reason: per Hypoglycemia Standing Ord. Furosemide (Furosemide 40 Mg Tablet) 40 mg PO BID [facility]; Protocol Last Admin: 07/16/21 07:55 Dose: 40 mg Documented by: LUDIN Glucose (Glucose Gel 15 Gm Gel..Gram.) 15 gm PO Q15M PRN; Protocol PRN Reason: per Hypoglycemia Standing Ord. Vancomycin HCl 1,000 mg/ (Sodium Chloride) 270 mls @ 270 mls/hr IV Q12H [facility] Last Infusion: 07/16/21 02:10 Dose: 0 mls/hr Documented by: ZAINAB Piperacillin Sod/Tazobactam (Sod 3.375 gm/ Sodium Chloride) 50 mls @ 100 mls/hr IV Q6H [facility] Last Infusion: 07/16/21 09:18 Dose: 0 mls/hr Documented by: LUDIN Insulin Human Lispro (Insulin Lispro 100 Unit/Ml 3 Ml Vial) 0 unit SUBCUT QIDACHS [facility]; Protocol Last Admin: 07/16/21 08:26 Dose: Not Given Documented by: LUDIN Non-Admin Reason: No Insulin Coverage Lorazepam (Lorazepam 1 Mg Tablet) 1 mg PO TID PRN PRN Reason: Anxiety Pharmacy Consult (Consult Rx Vancomycin Dosing) 1 each MISCELLANE DAILY PRN PRN Reason: Consult order Pharmacy Consult (Consult Rx Perform Med Rec) 1 each MISCELLANE ONCE PRN PRN Reason: Consult order Pharmacy Consult (Consult Rx Vancomycin Dosing) 1 each MISCELLANE DAILY PRN PRN Reason: Consult order Rivaroxaban (Rivaroxaban 20 Mg Tablet) 20 mg PO BEDTIME [facility] Last Admin: 07/15/21 20:53 Dose: 20 mg Documented by: ODRISEstefanía Sacubitril/Valsartan (Sacubitril/Valsartan 1 Tab Tablet) 1 tab PO BID [facility]; Protocol Last Admin: 07/16/21 07:56 Dose: 1 tab Documented by: LUDIN Sitagliptin Phosphate (Sitagliptin Phosphate 100 Mg Tablet) 100 mg PO DAILY [facility] Last Admin: 07/16/21 07:55 Dose: 100 mg Documented by: LUDIN Sodium Chloride (0.9 % Sodium Chloride Flush 3 Ml Syringe) 3 ml IVFLUSH QSHIFT [facility] Last Admin: 07/16/21 07:56 Dose: 3 ml Documented by: LUDIN Labs CBC & Chem 7: 07/16/21 06:07 07/16/21 06:07 Labs: Laboratory Results - last 24 hr 07/15/21 07/15/21 07/15/21 12:21 12:21 12:21 MCV 84.8 MCH 27.6 MCHC 32.6 RDW 15.9 Plt Count 228 MPV 9.4 Immature Gran % (Auto) 0.3 Neut % (Auto) 81.5 H Lymph % (Auto) 8.7 L [place] % (Auto) 8.0 Eos % (Auto) 1.0 Baso % (Auto) 0.5 Lymph # (Auto) 0.9 L [place] # (Auto) 0.8 Eos # (Auto) 0.1 Baso # (Auto) 0.1 Abs Immat Gran (auto) 0.03 Absolute Neuts (auto) 8.3 Absolute Nucleated RBC 0.000 Nucleated RBC % (auto) 0.0 Anion Gap 13 Estim Creat Clear Calc 107.8 Estimated GFR > 60 POC Glucose Random Glucose 191 H Fasting Glucose Lactic Acid 0.9 Calcium 9.3 Total Bilirubin 1.5 H Direct Bilirubin 0.9 H AST 22 ALT 27 Alkaline Phosphatase 121 H Total Protein 7.2 Albumin 3.5 COVID-19 (RADHA) COVID-19 [employer] Com 07/15/21 07/15/21 07/15/21 12:21 16:40 20:43 MCV MCH MCHC RDW Plt Count MPV Immature Gran % (Auto) Neut % (Auto) Lymph % (Auto) [place] % (Auto) Eos % (Auto) Baso % (Auto) Lymph # (Auto) [place] # (Auto) Eos # (Auto) Baso # (Auto) Abs Immat Gran (auto) Absolute Neuts (auto) Absolute Nucleated RBC Nucleated RBC % (auto) Anion Gap Estim Creat Clear Calc Estimated GFR POC Glucose 172 H 164 H Random Glucose Fasting Glucose Lactic Acid Calcium Total Bilirubin Direct Bilirubin AST ALT Alkaline Phosphatase Total Protein Albumin COVID-19 (RADHA) Negative COVID-19 Clin Com See Note 07/16/21 07/16/21 07/16/21 06:07 06:07 07:57 MCV 86.9 MCH 27.2 MCHC 31.4 RDW 16.0 Plt Count 224 MPV 9.6 Immature Gran % (Auto) Neut % (Auto) Lymph % (Auto) [place] % (Auto) Eos % (Auto) Baso % (Auto) Lymph # (Auto) [place] # (Auto) Eos # (Auto) Baso # (Auto) Abs Immat Gran (auto) Absolute Neuts (auto) Absolute Nucleated RBC 0.000 Nucleated RBC % (auto) 0.0 Anion Gap 13 Estim Creat Clear Calc 114.3 Estimated GFR > 60 POC Glucose 146 H Random Glucose Fasting Glucose 115 H Lactic Acid Calcium 8.7 D Total Bilirubin Direct Bilirubin AST ALT Alkaline Phosphatase Total Protein Albumin COVID-19 (RADHA) COVID-19 Clin Com Procedures Date of Service Date of Service: 07/16/21 Progress Note: A&P Assessment and plan (1) Dry gangrene: Status: Acute Assessment and Plan: no pus he has PAD await input from Vascular - pt had endovascular procedure 4 days ago in [place] (2) Cellulitis of foot, left: Status: Acute Assessment and Plan: no abscess or necrotic areas continue IV abx leg elevation - pillow positioned under calf appears better than yesterday currently no need to do surgical intervention of metallic FB on big toe Fall Risk Details Current Medications: Current Medications Atorvastatin Calcium (Atorvastatin Calcium 40 Mg Tablet) 40 mg PO DAILY [facility] Last Admin: 07/16/21 07:55 Dose: 40 mg Documented by: Carvedilol (Carvedilol 25 Mg Tablet) 25 mg PO BID [facility]; Protocol Last Admin: 07/16/21 07:56 Dose: 25 mg Documented by: Dextrose (Dextrose 50 % 25 Gm/50 Ml Vial) 25 gm IVPUSH Q15M PRN; Protocol PRN Reason: per Hypoglycemia Standing Ord. Furosemide (Furosemide 40 Mg Tablet) 40 mg PO BID [facility]; Protocol Last Admin: 07/16/21 07:55 Dose: 40 mg Documented by: Glucose (Glucose Gel 15 Gm Gel..Gram.) 15 gm PO Q15M PRN; Protocol PRN Reason: per Hypoglycemia Standing Ord. Vancomycin HCl 1,000 mg/ (Sodium Chloride) 270 mls @ 270 mls/hr IV Q12H [facility] Last Infusion: 07/16/21 02:10 Dose: Infused Documented by: Piperacillin Sod/Tazobactam (Sod 3.375 gm/ Sodium Chloride) 50 mls @ 100 mls/hr IV Q6H [facility] Last Infusion: 07/16/21 09:18 Dose: Infused Documented by: Insulin Human Lispro (Insulin Lispro 100 Unit/Ml 3 Ml Vial) 0 unit SUBCUT QIDACHS [facility]; Protocol Last Admin: 07/16/21 08:26 Dose: Not Given Documented by: Lorazepam (Lorazepam 1 Mg Tablet) 1 mg PO TID PRN PRN Reason: Anxiety Pharmacy Consult (Consult Rx Vancomycin Dosing) 1 each MISCELLANE DAILY PRN PRN Reason: Consult order Pharmacy Consult (Consult Rx Perform Med Rec) 1 each MISCELLANE ONCE PRN PRN Reason: Consult order Pharmacy Consult (Consult Rx Vancomycin Dosing) 1 each MISCELLANE DAILY PRN PRN Reason: Consult order Rivaroxaban (Rivaroxaban 20 Mg Tablet) 20 mg PO BEDTIME [facility] Last Admin: 07/15/21 20:53 Dose: 20 mg Documented by: Sacubitril/Valsartan (Sacubitril/Valsartan 1 Tab Tablet) 1 tab PO BID [facility]; Protocol Last Admin: 07/16/21 07:56 Dose: 1 tab Documented by: Sitagliptin Phosphate (Sitagliptin Phosphate 100 Mg Tablet) 100 mg PO DAILY [facility] Last Admin: 07/16/21 07:55 Dose: 100 mg Documented by: Sodium Chloride (0.9 % Sodium Chloride Flush 3 Ml Syringe) 3 ml IVFLUSH QSHIFT [facility] Last Admin: 07/16/21 07:56 Dose: 3 ml Documented by: Time Spent With Patient Time: Total time spent is greater than 50% in coordination of care (as documented) at patient's floor/unit and/or counseling patient: Time with patient: 15 - 24 minutes Quality Stroke Does the patient have a stroke diagnosis?: No VTE Prior VTE?: No VTE Risk Level:: Medical - moderate - high VTE Device Contraindication: Treatment Not Indicated VTE Drug Contraindication: N/A - Med Ordered
--- NOTE | 2021-07-16 11:39 | PHA.PROG ---
Admission Date/Time: July 15, 2021 14:31 Indication: Osteomylitis Weight in k.934 kg Adjusted body weight in K.8 kg [place] body weight in K.5 kg Obesity Dosing Indication % I39 %BW1: Serum Creatinine - Last 168 Hours 07/15/21 07/16/21 12:21 06:07 Creatinine 0.87 0.82 Estimated CrCl and GFR - Last 168 Hours 07/15/21 07/16/21 12:21 06:07 Estim Creat Clear Calc 107.8 114.3 Estimated GFR > 60 > 60 Vancomycin Loading Dose: Current Vancomycin Dosing Regimen: Vancomycin Monitoring using AUC goal of 400 - 600 range with trough as surrogate marker: Date and Time for next Vancomycin Level to be drawn: Pharmacist Comments on Vancomycin Plan: Vancomycin dosing will take advantage of [employer] as a clinical decision support tool that uses Bayesian modeling to calculate individual patient's pharmacokinetic parameters and forecast the patient's drug concentration time course with the target goal AUC 24 range of 400 - 600 mg/L/hr.
--- NOTE | 2021-07-16 11:40 | PHA.PROG ---
Addendum entered by Troy Bolden rach 07/17/21 12:11: RE Vanco dosing: Patient SCR is 0.89, but trough returned at 18.7 after just two doses. I will decrease the dose to 1750 mg q24h (q24h dosing based on age). Patient is obese, so there may be a bigger increase in vanco. New regimen to begin tonight at 2100. Trough after one dose to verify that the trough is trending down. Thanks Iron Original Note: Admission Date/Time: July 15, 2021 14:31 Indication: Osteomylitis Weight in k.934 kg Adjusted body weight in K.8 kg [place] body weight in K.5 kg Obesity Dosing Indication % IBW: 139% Serum Creatinine - Last 168 Hours 07/15/21 07/16/21 12:21 06:07 Creatinine 0.87 0.82 Estimated CrCl and GFR - Last 168 Hours 07/15/21 07/16/21 12:21 06:07 Estim Creat Clear Calc 107.8 114.3 Estimated GFR > 60 > 60 Vancomycin Loading Dose: 2000 mg Current Vancomycin Dosing Regimen: 1000 mg Pharmacist Comments on Vancomycin Plan: Random vancomycin level was 13 after two dose. Patient is obese and required careful monitoring AUC expected to decrease and be subtheraputic on current regimen. Since patient has osteomylitis, will increase dose now prior to becoming subtherapuetic Start vancomycin 1250 mg Q12H 07/16 @ 1300. Expected AUC 483 with a trough of 12.1 Pharmacy will continue to monitor renal fuction daily Susan Burnett PharmD Vancomycin dosing will take advantage of [employer] as a clinical decision support tool that uses Bayesian modeling to calculate individual patient's pharmacokinetic parameters and forecast the patient's drug concentration time course with the target goal AUC 24 range of 400 - 600 mg/L/hr.
[2021-07-16 11:58] LABS: Glucose, Whole Blood 232 mg/dL (60-115)
[2021-07-16] MEDS: Insulin Lispro 100 UNIT/ML 3 ML VIAL SUBCUT ×2 (12:30→17:19)
[2021-07-16] MEDS: vancomycin HCL 1,250 MG in 0.9 % Sodium Chloride 250 ML 166.67 MG IV (12:31)
--- NOTE | 2021-07-16 12:54 | MHC.CM.PN ---
PATIENT LIVES WITH HIS (IN ROOM) ASSESSMENT PERFORMED WITH PERMISSION FROM PATIENT. HE IS FULLY INDEPENDENT WITH ALL ADLS. NO DME OR VNA IN THE HOME HE HAS BEEN COVID-19 VACCINATED X 3 WITH MODERNA SERIES 06/16/20 07/15/20 02/11/21 PLANS ARE HOME WITH IV ABX,; HOWEVER, PATIENT IS OPEN TO THE IDEA OF AMP. IF VNA IS NEEDED, PATIENT IS AGREEABLE TO [facility] REFERRAL, WELL AN OPTION [facility] REFERRAL. IF [facility] IS UNABLE TO OFFER, PATIENT AND HAVE NO PREFERENCE FOR VNA NO HCP IS IN FILE. ONE CAN BE COMPLETED HERE IF PATIENT CHOOSES TO DO SO. IMM 07/16 IN CHART
[2021-07-16 16:20] LABS: Glucose, Whole Blood 182 mg/dL (60-115)
[2021-07-16 19:44] LABS: Glucose, Whole Blood 145 mg/dL (60-115)
[2021-07-16] MEDS: Rivaroxaban 20 MG TABLET PO (20:16)
[2021-07-17] MEDS: vancomycin HCL 1,250 MG in 0.9 % Sodium Chloride 250 ML 166.67 MG IV (01:31)
[2021-07-17] MEDS: 0.9 % Sodium Chloride Flush 3 ML SYRINGE IVFLUSH ×2 (01:35→10:01)
[2021-07-17] MEDS: Piperacillin Sodium/Tazobactam 3.375 GM in 0.9 % Sodium Chloride 50 ML IV ×4 (03:29→20:13)
[2021-07-17 03:32] VITALS: BP 124/76; PULSE 77; RESP 16; TEMP 36.4; O2SAT 98
[2021-07-17 06:56] VITALS: BP 126/63; PULSE 89; RESP 18; TEMP 36.1; O2SAT 97
[2021-07-17 07:10] LABS: Glucose, Whole Blood 139 mg/dL (60-115)
--- NOTE | 2021-07-17 08:46 | HO.PM.IMPN ---
Subjective Subjective Date of Service: 07/17/21 Interval History: cc: erythema on left foot interval history: erythema a bit worse today Cardiovascular Cardiovascular: Reports no additional cardiovascular complaints Respiratory Respiratory: Reports no additional respiratory complaints Physical Exam Vital Signs: Vital Signs: Last Vital Signs Temp 97 F 07/17/21 06:56 Pulse 89 07/17/21 06:56 Resp 18 07/17/21 06:56 BP 126/63 07/17/21 06:56 Pulse Ox 97 07/17/21 06:56 BMI result Body Mass Index 32.5 General: AO X 3, no acute distress Resp:? CTA bilateral, no accessory muscles used CVS: S1,S2,RRR GI: soft, non tender, non distended Neuro:? motor grossly intact, alert Psych: appropriate affect, appropriate insight? left foot: 4th toe dry gangrene, dorsum erythema, 1st toe unremarkable Objective Data Active Medications Atorvastatin Calcium (Atorvastatin Calcium 40 Mg Tablet) 40 mg PO DAILY [facility] Last Admin: 07/16/21 07:55 Dose: 40 mg Documented by: LUDIN Carvedilol (Carvedilol 25 Mg Tablet) 25 mg PO BID [facility]; Protocol Last Admin: 07/16/21 20:15 Dose: 25 mg Documented by: SUHAIL Dextrose (Dextrose 50 % 25 Gm/50 Ml Vial) 25 gm IVPUSH Q15M PRN; Protocol PRN Reason: per Hypoglycemia Standing Ord. Furosemide (Furosemide 40 Mg Tablet) 40 mg PO BID [facility]; Protocol Last Admin: 07/16/21 20:16 Dose: 40 mg Documented by: SUHAIL Glucose (Glucose Gel 15 Gm Gel..Gram.) 15 gm PO Q15M PRN; Protocol PRN Reason: per Hypoglycemia Standing Ord. Piperacillin Sod/Tazobactam (Sod 3.375 gm/ Sodium Chloride) 50 mls @ 100 mls/hr IV Q6H [facility] Last Infusion: 07/17/21 05:12 Dose: 0 mls/hr Documented by: SARINA Vancomycin HCl 1,250 mg/ (Sodium Chloride) 250 mls @ 166.667 mls/hr IV Q12H [facility] Last Infusion: 07/17/21 03:24 Dose: 0 mls/hr Documented by: SARINA Insulin Human Lispro (Insulin Lispro 100 Unit/Ml 3 Ml Vial) 0 unit SUBCUT QIDACHS [facility]; Protocol Last Admin: 07/17/21 07:37 Dose: Not Given Documented by: GEORGIANA Non-Admin Reason: No Insulin Coverage Lorazepam (Lorazepam 1 Mg Tablet) 1 mg PO TID PRN PRN Reason: Anxiety Pharmacy Consult (Consult Rx Vancomycin Dosing) 1 each MISCELLANE DAILY PRN PRN Reason: Consult order Pharmacy Consult (Consult Rx Perform Med Rec) 1 each MISCELLANE ONCE PRN PRN Reason: Consult order Pharmacy Consult (Consult Rx Vancomycin Dosing) 1 each MISCELLANE DAILY PRN PRN Reason: Consult order Rivaroxaban (Rivaroxaban 20 Mg Tablet) 20 mg PO BEDTIME [facility] Last Admin: 07/16/21 20:16 Dose: 20 mg Documented by: SUHAIL Sacubitril/Valsartan (Sacubitril/Valsartan 1 Tab Tablet) 1 tab PO BID [facility]; Protocol Last Admin: 07/16/21 20:16 Dose: 1 tab Documented by: SUHAIL Sitagliptin Phosphate (Sitagliptin Phosphate 100 Mg Tablet) 100 mg PO DAILY [facility] Last Admin: 07/16/21 07:55 Dose: 100 mg Documented by: LUDIN Sodium Chloride (0.9 % Sodium Chloride Flush 3 Ml Syringe) 3 ml IVFLUSH QSHIFT [facility] Last Admin: 07/17/21 01:35 Dose: 3 ml Documented by: SARINA Labs CBC & Chem 7: 07/16/21 06:07 07/16/21 06:07 Labs: Laboratory Results - last 24 hr 07/16/21 07/16/21 07/16/21 10:49 11:42 16:06 POC Glucose 232 H 182 H Random Vancomycin 13.0 L 07/16/21 07/17/21 19:26 06:56 POC Glucose 145 H 139 H Random Vancomycin Microbiology Microbiology Results: Microbiology 07/15/21 12:35 Blood Culture - Preliminary Blood - Venous No growth after 24 hours. 07/15/21 12:21 Blood Culture - Preliminary Blood - Venous No growth after 24 hours. Assessment and Plan (1) Peripheral vascular disease: Status: Acute Plan 71M? presented with worsening erythema of left dorsum of foot. ? 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 furosemide ?diabetes ?holding metformin ?continue Januvia ?insulin sliding scale (patient not interested unless significantly hyperglycemic) monitor poc ?hypertension ?carvedilol,? valsartan (entresto) ?hyperlipidemia ?statin ?paroxysmal atrial fibrillation ?carvedilol and Xarelto ?DVT prophylaxis-on Xarelto ?full code reason for continued hospitalization: requiring iv abx for OM/cellulitis, plan for surgical intervention prior to discharge once cellulitis improves, risk for decompensation to sepsis due to DM, vascular disease Quality Stroke Does the patient have a stroke diagnosis?: No VTE Prior VTE?: No VTE Risk Level:: Medical - moderate - high VTE Device Contraindication: Treatment Not Indicated VTE Drug Contraindication: N/A - Med Ordered
--- NOTE | 2021-07-17 09:40 | MHC.CLN ---
NUTRITION CONSULT FOR SKIN. PATIENT WITH PERIPHERAL VASCULAR DISEASE WITH INVOLVEMENT OF LEFT FOOT FOURTH TOE. CALORIES INCREASED TO 2000 KCAL AND CARDIAC DIET ADDED. DIET=DIABETIC 2000 KCAL, CARDIAC.
[2021-07-17] MEDS: carvediloL 25 MG TABLET PO ×2 (10:01→20:13)
[2021-07-17] MEDS: Furosemide 40 MG TABLET PO ×2 (10:01→20:13)
[2021-07-17] MEDS: Atorvastatin Calcium 40 MG TABLET PO (10:01)
[2021-07-17] MEDS: Sacubitril/Valsartan 24/26 1 TAB TABLET PO ×2 (10:01→20:14)
[2021-07-17] MEDS: SITagliptin Phosphate 100 MG TABLET PO (10:01)
--- NOTE | 2021-07-17 10:08 | P.CONGS_ITS ---
History of Present Illness Consult details Consult date: 07/17/21 Reason for consult: wound care Narrative: 71-year-old diabetic gentleman with a history of peripheral vascular disease presented on Saturday with a nonhealing left foot ulcer. There was actually dry g angrene with associated cellulitis. Of note he has had an outpatient endovascular intervention by Dr. Mejia at his outpatient center. It is unclear how far this wound had progressed at that point. He was subsequently admitted for IV antibiotic therapy. He now presents to us for vascular evaluation. Review of Systems Review of Systems: Yes all other systems are reviewed and are negative Constitutional: Constitutional: Reports no additional constitutional compl aints ENT: Reports Normal hearing present Cardiovascular: Cardiovascular: Denies chest pain, Denies chest pain at rest, Denies chest pain with activity and Denies pedal edema Respiratory: Respiratory: Denies cough Gastrointestinal: Gastrointestinal: Denies abdominal pain Musculoskeletal: Musculoskeletal: Denies abnormal gait, Denies muscle cramps and Denies radiating pain into limb Integumentary/Breasts: Skin/Breast: Denies skin ulcer and Denies wounds Neurologic: Reports Normal hearing present and Denies abnormal gait Psychiatric: Psychiatric: Reports no additional psychiatric complaints [facility] Past Medical History Medical History (Updated 07/16/21 @ 10:19 by Carson Calderon MD) Chronic systolic (congestive) heart failure Diabetes mellitus Dry gangrene HLD (hyperlipidemia) HTN (hypertension) Paroxysmal atrial fibrillation Peripheral vascular disease Traumatic subdural hematoma Family History Family History Father No problems noted. Surgical History Surgical History H/O angioplasty Social History Social History Household Members: Spouse Housing: House Do you presently have visiting nurse or other home services: No Alcohol intake: former Year quit: 1999 Patient Tobacco Use Status: Never used Tobacco Advance Directives Date on File: 07/15/21 service: No Current occupational status: retired [employer] Allergies Allergy/AdvReac Type Severity Reaction Status Date / Time No Known Allergies Allergy Verified 07/15/21 10:33 Active Medications: Current Medications Atorvastatin Calcium (Atorvastatin Calcium 40 Mg Tablet) 40 mg PO DAILY [facility] Last Admin: 07/17/21 10:01 Dose: 40 mg Documented by: Carvedilol (Carvedilol 25 Mg Tablet) 25 mg PO BID [facility]; Protocol Last Admin: 07/17/21 10:01 Dose: 25 mg Documented by: Dextrose (Dextrose 50 % 25 Gm/50 Ml Vial) 25 gm IVPUSH Q15M PRN; Protocol PRN Reason: per Hypoglycemia Standing Ord. Furosemide (Furosemide 40 Mg Tablet) 40 mg PO BID [facility]; Protocol Last Admin: 07/17/21 10:01 Dose: 40 mg Documented by: Glucose (Glucose Gel 15 Gm Gel..Gram.) 15 gm PO Q15M PRN; Protocol PRN Reason: per Hypoglycemia Standing Ord. Piperacillin Sod/Tazobactam (Sod 3.375 gm/ Sodium Chloride) 50 mls @ 100 mls/hr IV Q6H [facility] Last Admin: 07/17/21 10:00 Dose: 100 mls/hr Documented by: Vancomycin HCl 1,250 mg/ (Sodium Chloride) 250 mls @ 166.667 mls/hr IV Q12H [facility] Last Infusion: 07/17/21 03:24 Dose: Infused Documented by: Insulin Human Lispro (Insulin Lispro 100 Unit/Ml 3 Ml Vial) 0 unit SUBCUT QIDACHS [facility]; Protocol Last Admin: 07/17/21 07:37 Dose: Not Given Documented by: Lorazepam (Lorazepam 1 Mg Tablet) 1 mg PO TID PRN PRN Reason: Anxiety Pharmacy Consult (Consult Rx Vancomycin Dosing) 1 each MISCELLANE DAILY PRN PRN Reason: Consult order Pharmacy Consult (Consult Rx Perform Med Rec) 1 each MISCELLANE ONCE PRN PRN Reason: Consult order Pharmacy Consult (Consult Rx Vancomycin Dosing) 1 each MISCELLANE DAILY PRN PRN Reason: Consult order Rivaroxaban (Rivaroxaban 20 Mg Tablet) 20 mg PO BEDTIME [facility] Last Admin: 07/16/21 20:16 Dose: 20 mg Documented by: Sacubitril/Valsartan (Sacubitril/Valsartan 1 Tab Tablet) 1 tab PO BID [facility]; Protocol Last Admin: 07/17/21 10:01 Dose: 1 tab Documented by: Sitagliptin Phosphate (Sitagliptin Phosphate 100 Mg Tablet) 100 mg PO DAILY [facility] Last Admin: 07/17/21 10:01 Dose: 100 mg Documented by: Sodium Chloride (0.9 % Sodium Chloride Flush 3 Ml Syringe) 3 ml IVFLUSH QSHIFT [facility] Last Admin: 07/17/21 10:01 Dose: 3 ml Documented by: Home Medications Medication Instructions Recorded Confirmed Last Taken Type Lactobacillus rhamnosus GG 10 1 cap PO DAILY 07/15/21 07/15/21 07/15/21 History billion cell capsule (Culturelle) atorvastatin 40 mg tablet 40 mg PO DAILY 07/15/21 07/15/21 07/15/21 History carvedilol 25 mg tablet 25 mg PO BID 07/15/21 07/15/21 07/15/21 History furosemide 40 mg tablet 40 mg PO BID 07/15/21 07/15/21 07/15/21 History lorazepam 0.5 mg tablet 1 - 2 tab PO TID PRN 07/15/21 07/15/21 Unknown History metformin 500 mg tablet,extended 4 tab PO DAILY 07/15/21 07/15/21 Unknown History release 24 hr rivaroxaban 20 mg tablet (Xarelto) 1 tab PO BEDTIME 07/15/21 07/15/21 07/14/21 History sacubitril 24 mg-valsartan 26 mg 1 tab PO BID 07/15/21 07/15/21 07/14/21 History tablet (Entresto) sitagliptin 100 mg tablet (Januvia) 1 tab PO DAILY 07/15/21 07/15/21 07/14/21 History Physical Exam Vital Signs: Vital Signs: Last Vital Signs Temp 97 F 07/17/21 06:56 Pulse 89 07/17/21 06:56 Resp 18 07/17/21 06:56 BP 126/63 07/17/21 06:56 Pulse Ox 97 07/17/21 06:56 BMI result Body Mass Index 32.5 Const: General: cooperative, healthy appearing and comfortable Orientation/consciousness: oriented to person, oriented to place and oriented to time HENMT: Head: Yes normal to inspection Neck: Neck: Yes normal visual inspection Carotids: no bruits Chest: Chest palpation & inspection: normal inspection of the chest Resp: Effort & Inspection: normal respiratory effort and able to speak in complete sentences Auscultation: clear to auscultation bilaterally, no crackles, no rales, no rhonchi and no wheezes Cardio: Rate: regular rate Rhythm: regular rhythm Heart sounds: S1 normal heart sound present and S2 normal heart sound present Bruits: no carotid bruits Peripheral pulses: dorsalis pedis present (Bilateral DP signals) GI: Inspection: Yes normal to inspection Skin: Wounds: wounds noted (Left 3rd toe dry gangrene) Hair: normal Neuro: General: oriented to person, oriented to place and oriented to time Cranial nerves: Yes CN's II-XII intact bilaterally and Yes Normal hearing present Cognition (Neuro): normal cognition Motor exam (neuro): 5/5 motor strength present throughout Extrem: Other: venous exam: No significant superficial varicosities or spider telangiectasias, minimal edema General: No clubbing, No cyanosis and No edema Psych: Appearance: grossly normal Mental Status: mental status grossly normal Speech and movement: Normal speech and movement present Results Labs Result diagrams: 07/16/21 06:07 07/16/21 06:07 Labs: Abnormal lab results 07/16/21 07/16/21 07/16/21 Range/Units 10:49 11:42 16:06 POC Glucose 232 H 182 H (60-115) mg/dL Random Vancomycin 13.0 L (15-20) mcg/mL 07/16/21 07/17/21 Range/Units 19:26 06:56 POC Glucose 145 H 139 H (60-115) mg/dL Random Vancomycin (15-20) mcg/mL All other labs normal. Assessment and Plan (1) Peripheral vascular disease: Status: Acute Plan In short patient has left 4th toe dry gangrene with surrounding cellulitis. I have taken the liberty of ordering noninvasive arterial testing to ensure or what ever endovascular procedure is patent and he has reasonable runoff. Would like him to continue IV antibiotics for the cellulitis to subside prior to amputation. He will require left 4th toe amputation prior to discharge. This was discussed with the patient and the hospitalist team. Wound care orders were written. We will continue to follow this patient closely with you and follow-up with noninvasive testing. Thank you for allowing us to assist in his care. If there are any questions or concerns please do not hesitate to contact us. Procedures Date of Service Date of Service: 07/17/21
[2021-07-17 10:52] LABS: Creatinine Clr Calc Pharmacy 105.3; Estimated Glomerular Filt Rate > 60
[2021-07-17 11:00] VITALS: BP 136/79; PULSE 72; RESP 19; TEMP 36.1; O2SAT 97
[2021-07-17 11:08] LABS: Glucose, Whole Blood 201 mg/dL (60-115)
[2021-07-17 11:17] LABS: Vancomycin Trough 18.7 mcg/mL (10.0-20.0)
[2021-07-17] MEDS: Insulin Lispro 100 UNIT/ML 3 ML VIAL SUBCUT ×3 (12:04→20:14)
--- NOTE | 2021-07-17 12:10 | PC.NURSE ---
Skin/wound assessment completed. Left 4th toe gangrenous, with skin peeling and redness. Left great toe nail is lifting off appears to have infection under nail. Left foot has cellulitis, red and swollen. Betadine applied to wound, covered with gauze and roll gauze. No other skin issues noted at this time.
[2021-07-17 16:00] VITALS: BP 138/94; PULSE 90; RESP 18; TEMP 36.6; O2SAT 98
[2021-07-17 16:24] LABS: Glucose, Whole Blood 163 mg/dL (60-115)
[2021-07-17 19:47] VITALS: BP 143/83; PULSE 81; RESP 18; TEMP 37; O2SAT 98
[2021-07-17 20:05] LABS: Glucose, Whole Blood 194 mg/dL (60-115)
[2021-07-17] MEDS: Rivaroxaban 20 MG TABLET PO (20:13)
[2021-07-17] MEDS: vancomycin HCL 1,000 MG, vancomycin HCL 750 MG in 0.9 % Sodium Chloride 500 ML 267.5 MG IV (20:53)
[2021-07-17 23:30] VITALS: BP 124/69; PULSE 75; RESP 14; TEMP 37.3; O2SAT 91
[2021-07-18] MEDS: Piperacillin Sodium/Tazobactam 3.375 GM in 0.9 % Sodium Chloride 50 ML IV ×4 (02:47→20:42)
[2021-07-18 03:55] VITALS: BP 134/65; PULSE 70; RESP 14; TEMP 36.8; O2SAT 96
[2021-07-18 07:00] LABS: Hematocrit 36.3 % (42.0-52.0); Hemoglobin 11.4 g/dl (14.0-18.0); Mean Corpuscular HGB Conc 31.4 g/dl (31.0-36.0); Mean Corpuscular Volume 85.8 fL (80.0-98.0); Mean Platelet Volume 9.4 fL (9.4-12.4); Platelet Count 203 X10*3/uL (160-400); Red Blood Count 4.23 X10*6/uL (4.60-5.80); Red Cell Distribution Width 16.1 % (11.0-16.0); White Blood Count 7.8 X10*3/uL (4.8-10.8)
[2021-07-18 07:13] LABS: Anion Gap 12 (12-20); Blood Urea Nitrogen 13 mg/dL (9-16); Calcium 8.8 mg/dL (8.4-10.2); Carbon Dioxide 29 mmol/L (22-29); Chloride 103 mmol/L (96-108); Creatinine Clr Calc Pharmacy 97.7; Estimated Glomerular Filt Rate > 60; Glucose Fasting 104 mg/dL (60-99); Potassium 4.7 mmol/L (3.3-5.1); Sodium 139 mmol/L (135-145)
[2021-07-18 07:14] VITALS: BP 117/74; PULSE 78; RESP 16; TEMP 36.4; O2SAT 96
[2021-07-18 07:23] LABS: Glucose, Whole Blood 134 mg/dL (60-115)
--- NOTE | 2021-07-18 07:35 | HE.PHANOTE ---
VANCOMYCIN ADDENDUM: Will continue the patient on 1750 Q24H. The model is predicting a AUC of 471 and a trough of 13.7. Next trough is set to be drawn at 1900 in 07/18. We will continue to monitor renal function.
[2021-07-18] MEDS: Furosemide 40 MG TABLET PO ×2 (08:14→20:42)
[2021-07-18] MEDS: SITagliptin Phosphate 100 MG TABLET PO (08:14)
[2021-07-18] MEDS: carvediloL 25 MG TABLET PO ×2 (08:14→20:43)
[2021-07-18] MEDS: Atorvastatin Calcium 40 MG TABLET PO (08:14)
[2021-07-18] MEDS: Sacubitril/Valsartan 24/26 1 TAB TABLET PO ×2 (08:14→20:42)
[2021-07-18] MEDS: 0.9 % Sodium Chloride Flush 3 ML SYRINGE IVFLUSH ×3 (08:15→20:43)
--- NOTE | 2021-07-18 09:14 | HO.PM.IMPN ---
Subjective Subjective Date of Service: 07/18/21 Interval History: cc: erythematoud dorsum of left foot interval history: some improvement in erythema Respiratory Respiratory: Reports no additional respiratory complaints Gastrointestinal Gastrointestinal: Reports no additional gastrointestinal complaints Physical Exam Vital Signs: Vital Signs: Last Vital Signs Temp 97.5 F 07/18/21 07:14 Pulse 78 07/18/21 07:14 Resp 16 07/18/21 07:14 BP 117/74 07/18/21 07:14 Pulse Ox 96 07/18/21 07:14 BMI result Body Mass Index 32.5 General: AO X 3, no acute distress Resp:? CTA bilateral, no accessory muscles used CVS: S1,S2,RRR GI: soft, non tender, non distended Neuro:? motor grossly intact, alert Psych: appropriate affect, appropriate insight? left foot: 4th toe dry gangrene, dorsum erythema, 1st toe unremarkable Objective Data Active Medications Atorvastatin Calcium (Atorvastatin Calcium 40 Mg Tablet) 40 mg PO DAILY [facility] Last Admin: 07/18/21 08:14 Dose: 40 mg Documented by: JOSH Carvedilol (Carvedilol 25 Mg Tablet) 25 mg PO BID [facility]; Protocol Last Admin: 07/18/21 08:14 Dose: 25 mg Documented by: JOSH Dextrose (Dextrose 50 % 25 Gm/50 Ml Vial) 25 gm IVPUSH Q15M PRN; Protocol PRN Reason: per Hypoglycemia Standing Ord. Furosemide (Furosemide 40 Mg Tablet) 40 mg PO BID [facility]; Protocol Last Admin: 07/18/21 08:14 Dose: 40 mg Documented by: JOSH Glucose (Glucose Gel 15 Gm Gel..Gram.) 15 gm PO Q15M PRN; Protocol PRN Reason: per Hypoglycemia Standing Ord. Piperacillin Sod/Tazobactam (Sod 3.375 gm/ Sodium Chloride) 50 mls @ 100 mls/hr IV Q6H [facility] Last Infusion: 07/18/21 08:53 Dose: 0 mls/hr Documented by: JOSH Vancomycin HCl 1,000 mg/Vancomycin HCl 750 mg/ Sodium Chloride 535 mls @ 267.5 mls/hr IV Q24H [facility] Last Infusion: 07/17/21 23:41 Dose: 0 mls/hr Documented by: DELMA Insulin Human Lispro (Insulin Lispro 100 Unit/Ml 3 Ml Vial) 0 unit SUBCUT QIDACHS [facility]; Protocol Last Admin: 07/18/21 07:12 Dose: Not Given Documented by: JOSH Non-Admin Reason: No Insulin Coverage Lorazepam (Lorazepam 1 Mg Tablet) 1 mg PO TID PRN PRN Reason: Anxiety Pharmacy Consult (Consult Rx Vancomycin Dosing) 1 each MISCELLANE DAILY PRN PRN Reason: Consult order Pharmacy Consult (Consult Rx Perform Med Rec) 1 each MISCELLANE ONCE PRN PRN Reason: Consult order Pharmacy Consult (Consult Rx Vancomycin Dosing) 1 each MISCELLANE DAILY PRN PRN Reason: Consult order Rivaroxaban (Rivaroxaban 20 Mg Tablet) 20 mg PO BEDTIME [facility] Last Admin: 07/17/21 20:13 Dose: 20 mg Documented by: DELMA Sacubitril/Valsartan (Sacubitril/Valsartan 1 Tab Tablet) 1 tab PO BID [facility]; Protocol Last Admin: 07/18/21 08:14 Dose: 1 tab Documented by: JOSH Sitagliptin Phosphate (Sitagliptin Phosphate 100 Mg Tablet) 100 mg PO DAILY [facility] Last Admin: 07/18/21 08:14 Dose: 100 mg Documented by: JOSH Sodium Chloride (0.9 % Sodium Chloride Flush 3 Ml Syringe) 3 ml IVFLUSH QSHIFT [facility] Last Admin: 07/18/21 08:15 Dose: 3 ml Documented by: JOSH Labs CBC & Chem 7: 07/18/21 06:34 07/18/21 06:34 Labs: Laboratory Results - last 24 hr 07/17/21 07/17/21 07/17/21 10:24 10:24 11:00 MCV MCH MCHC RDW Plt Count MPV Absolute Nucleated RBC Nucleated RBC % (auto) Anion Gap Estim Creat Clear Calc 105.3 Estimated GFR > 60 POC Glucose 201 H Fasting Glucose Calcium Vancomycin Trough 18.7 07/17/21 07/17/21 07/18/21 16:18 19:46 06:34 MCV 85.8 MCH 27.0 MCHC 31.4 RDW 16.1 H Plt Count 203 MPV 9.4 Absolute Nucleated RBC 0.000 Nucleated RBC % (auto) 0.0 Anion Gap Estim Creat Clear Calc Estimated GFR POC Glucose 163 H 194 H Fasting Glucose Calcium Vancomycin Trough 07/18/21 07/18/21 06:34 07:12 MCV MCH MCHC RDW Plt Count MPV Absolute Nucleated RBC Nucleated RBC % (auto) Anion Gap 12 Estim Creat Clear Calc 97.7 Estimated GFR > 60 POC Glucose 134 H Fasting Glucose 104 H Calcium 8.8 Vancomycin Trough Microbiology Microbiology Results: Microbiology 07/15/21 12:35 Blood Culture - Preliminary Blood - Venous No growth after 48 hours. 07/15/21 12:21 Blood Culture - Preliminary Blood - Venous No growth after 48 hours. Assessment and Plan (1) Peripheral vascular disease: Status: Acute Plan 71M? presented with worsening erythema of left dorsum of foot. ? Left foot diabetic/vascular dry gangrene with cellulitis ?status post angioplasty last week ?continue Xarelto and statin ?vancomycin, Zosyn follow up ID arterial us negative plan for amputation of 4th toe 07/20/21 ?cellulitis and possible osteomyelitis of left 1st toe with foreign body CT showing metallic foreign body, cellulitis, possible chronic OM likely all chronic, does not appear to be causing infection, no need to remove foreign body ?chronic systolic CHF ?continue carvedilol, Entresto,? furosemide ?diabetes ?holding metformin ?continue Januvia ?insulin sliding scale (patient not interested unless significantly hyperglycemic) monitor poc ?hypertension ?carvedilol,? valsartan (entresto) ?hyperlipidemia ?statin ?paroxysmal atrial fibrillation ?carvedilol and Xarelto ?DVT prophylaxis-on Xarelto ?full code reason for continued hospitalization: requiring iv abx for OM/cellulitis, plan for surgical intervention prior to discharge once cellulitis improves, risk for decompensation to sepsis due to DM, vascular disease Quality Stroke Does the patient have a stroke diagnosis?: No VTE Prior VTE?: No VTE Risk Level:: Medical - moderate - high VTE Device Contraindication: Treatment Not Indicated VTE Drug Contraindication: N/A - Med Ordered
--- NOTE | 2021-07-18 10:17 | HO.VASCPN ---
Subjective Subjective Date of Service: 07/18/21 Patient reports: no new complaints and feels better Interval history: 71-year-old gentleman with a history of peripheral vascular disease and diabetic foot ulcer presents for routine hospital follow-up. He has had no interval issues. Reports that his leg is doing better. He has undergone noninvasive arterial testing. He now presents for routine follow-up. Physical Exam Vital Signs: Vital Signs: Last Vital Signs Temp 97.5 F 07/18/21 07:14 Pulse 78 07/18/21 07:14 Resp 16 07/18/21 07:14 BP 117/74 07/18/21 07:14 Pulse Ox 96 07/18/21 07:14 BMI result Body Mass Index 32.5 Const: General: cooperative, healthy appearing and no acute distress Orientation/consciousness: oriented to person, oriented to place and oriented to time HENMT: Head: Yes normal to inspection Neck: Carotids: no bruits Chest: Chest palpation & inspection: normal inspection of the chest Resp: Effort & Inspection: normal respiratory effort and able to speak in complete sentences Auscultation: clear to auscultation bilaterally Cardio: Rate: regular rate Heart sounds: S1 normal heart sound present and S2 normal heart sound present GI: Inspection: Yes normal to inspection Skin: General skin exam: no rashes or lesions noted Wounds: wounds noted (Left 4th toe gangerene) Neuro: General: oriented to person, oriented to place, oriented to time and CN's II-XI intact bilaterally Extrem: General: Yes normal to inspection, Yes full ROM and Yes no clubbing, cyanosis or edema Psych: Appearance: grossly normal and well kempt Speech and movement: Normal speech and movement present Affect: normal affect Progress Note: A&P Assessment and plan (1) Peripheral vascular disease: Status: Acute Assessment and Plan: In short patient has left 4th toe gangrene. Noninvasive testing was reviewed and demonstrates no areas of focal stenosis. Would like antibiotics to reduce cellulitis prior to amputation. It has improved since his admission. Would like an additional day or 2 of antibiotics prior to amputation. Would anticipate possible amputation on . Thank you for allowing us to assist in his care. Fall Risk Details Current Medications: Current Medications Atorvastatin Calcium (Atorvastatin Calcium 40 Mg Tablet) 40 mg PO DAILY [facility] Last Admin: 07/18/21 08:14 Dose: 40 mg Documented by: Carvedilol (Carvedilol 25 Mg Tablet) 25 mg PO BID [facility]; Protocol Last Admin: 07/18/21 08:14 Dose: 25 mg Documented by: Dextrose (Dextrose 50 % 25 Gm/50 Ml Vial) 25 gm IVPUSH Q15M PRN; Protocol PRN Reason: per Hypoglycemia Standing Ord. Furosemide (Furosemide 40 Mg Tablet) 40 mg PO BID [facility]; Protocol Last Admin: 07/18/21 08:14 Dose: 40 mg Documented by: Glucose (Glucose Gel 15 Gm Gel..Gram.) 15 gm PO Q15M PRN; Protocol PRN Reason: per Hypoglycemia Standing Ord. Piperacillin Sod/Tazobactam (Sod 3.375 gm/ Sodium Chloride) 50 mls @ 100 mls/hr IV Q6H [facility] Last Infusion: 07/18/21 08:53 Dose: Infused Documented by: Vancomycin HCl 1,000 mg/Vancomycin HCl 750 mg/ Sodium Chloride 535 mls @ 267.5 mls/hr IV Q24H [facility] Last Infusion: 07/17/21 23:41 Dose: Infused Documented by: Insulin Human Lispro (Insulin Lispro 100 Unit/Ml 3 Ml Vial) 0 unit SUBCUT QIDACHS [facility]; Protocol Last Admin: 07/18/21 07:12 Dose: Not Given Documented by: Lorazepam (Lorazepam 1 Mg Tablet) 1 mg PO TID PRN PRN Reason: Anxiety Pharmacy Consult (Consult Rx Vancomycin Dosing) 1 each MISCELLANE DAILY PRN PRN Reason: Consult order Pharmacy Consult (Consult Rx Perform Med Rec) 1 each MISCELLANE ONCE PRN PRN Reason: Consult order Pharmacy Consult (Consult Rx Vancomycin Dosing) 1 each MISCELLANE DAILY PRN PRN Reason: Consult order Rivaroxaban (Rivaroxaban 20 Mg Tablet) 20 mg PO BEDTIME [facility] Last Admin: 07/17/21 20:13 Dose: 20 mg Documented by: Sacubitril/Valsartan (Sacubitril/Valsartan 1 Tab Tablet) 1 tab PO BID [facility]; Protocol Last Admin: 07/18/21 08:14 Dose: 1 tab Documented by: Sitagliptin Phosphate (Sitagliptin Phosphate 100 Mg Tablet) 100 mg PO DAILY [facility] Last Admin: 07/18/21 08:14 Dose: 100 mg Documented by: Sodium Chloride (0.9 % Sodium Chloride Flush 3 Ml Syringe) 3 ml IVFLUSH QSHIFT [facility] Last Admin: 07/18/21 08:15 Dose: 3 ml Documented by: Time Spent With Patient Time: Total time spent is greater than 50% in coordination of care (as documented) at patient's floor/unit and/or counseling patient: Time with patient: less than 15 minutes Procedures Date of Service Date of Service: 07/18/21 Quality Stroke Does the patient have a stroke diagnosis?: No VTE Prior VTE?: No VTE Risk Level:: Medical - moderate - high VTE Device Contraindication: Treatment Not Indicated VTE Drug Contraindication: N/A - Med Ordered
[2021-07-18 11:33] VITALS: BP 129/77; PULSE 68; RESP 18; TEMP 36.9; O2SAT 98
[2021-07-18 11:42] LABS: Glucose, Whole Blood 171 mg/dL (60-115)
[2021-07-18] MEDS: Insulin Lispro 100 UNIT/ML 3 ML VIAL SUBCUT ×2 (12:05→16:38)
--- NOTE | 2021-07-18 14:31 | MHC.CM.PN ---
NURSE PROGRAM DIRECTOR/MUSIC DIRECTOR NOTE ELECTRONIC MEDICAL RECORD REFIEWED ALONG WITH CASE DISUCSSED ON MULTIPLE DISCIPLAINRY ROUNDS, PER HOSPITLIST PATIENT WILL CONTINUE ON HIS IV ABX TO AID IN REDUCING SWELLI G OF HIS FOOT AND PLAN FOR 4TH TOE AMPUTATION ON SATURDAY , CULTURE WILL BE SENT AND THEN DETEMINE IF HE WILL NEED IV ABX AT DISCHARGE OR ORAL ABX, DISCHARGE PLAN INITIAL PLAN HOME NO SERVICES , WILL READDRESS AFTER SURGERY TRANSPORT FAMILY PCP DR IZZY MURILLO IN [place]
[2021-07-18 15:34] VITALS: BP 126/71; PULSE 74; RESP 18; TEMP 36.6; O2SAT 100
[2021-07-18 15:56] LABS: Glucose, Whole Blood 180 mg/dL (60-115)
--- NOTE | 2021-07-18 16:05 | P.CNID_ITS ---
History of Present Illness Data of Consult Service Date: 07/18/21 Requesting physician: Toño Packer Primary Care Provider: MD DIEGO Crawford Reason for consult: left foot osteomyelitis He presents to ER with worsening redness and yellow discharge around left fourth toe area. He has revascularization going well with Dr Chung. He has CT some evidence chronic osteomyelitis great toe and has gangrene fourth toe. Review of Systems Review of Systems: Yes all other systems are reviewed and are negative PMFSH Past Medical History Medical History Chronic systolic (congestive) heart failure Diabetes mellitus Dry gangrene HLD (hyperlipidemia) HTN (hypertension) Osteomyelitis Paroxysmal atrial fibrillation Peripheral vascular disease Traumatic subdural hematoma Family History Family History Father No problems noted. Family history: reviewed and not pertinent Surgical History Surgical History H/O angioplasty Social History Social History Household Members: Spouse Housing: House Do you presently have visiting nurse or other home services: No Alcohol intake: former Year quit: 1999 Patient Tobacco Use Status: Never used Tobacco Second Hand Smoke Exposure: No Advance Directives Date on File: 07/15/21 service: No Current occupational status: retired Meds Allergies Allergy/AdvReac Type Severity Reaction Status Date / Time No Known Allergies Allergy Verified 07/15/21 10:33 Active Medications: Current Medications Atorvastatin Calcium (Atorvastatin Calcium 40 Mg Tablet) 40 mg PO DAILY [facility] Last Admin: 07/18/21 08:14 Dose: 40 mg Documented by: Carvedilol (Carvedilol 25 Mg Tablet) 25 mg PO BID [facility]; Protocol Last Admin: 07/18/21 08:14 Dose: 25 mg Documented by: Dextrose (Dextrose 50 % 25 Gm/50 Ml Vial) 25 gm IVPUSH Q15M PRN; Protocol PRN Reason: per Hypoglycemia Standing Ord. Furosemide (Furosemide 40 Mg Tablet) 40 mg PO BID [facility]; Protocol Last Admin: 07/18/21 08:14 Dose: 40 mg Documented by: Glucose (Glucose Gel 15 Gm Gel..Gram.) 15 gm PO Q15M PRN; Protocol PRN Reason: per Hypoglycemia Standing Ord. Piperacillin Sod/Tazobactam (Sod 3.375 gm/ Sodium Chloride) 50 mls @ 100 mls/hr IV Q6H [facility] Last Infusion: 07/18/21 14:31 Dose: Infused Documented by: Vancomycin HCl 1,000 mg/Vancomycin HCl 750 mg/ Sodium Chloride 535 mls @ 267.5 mls/hr IV Q24H [facility] Last Infusion: 07/17/21 23:41 Dose: Infused Documented by: Insulin Human Lispro (Insulin Lispro 100 Unit/Ml 3 Ml Vial) 0 unit SUBCUT Q IDACHS [facility]; Protocol Last Admin: 07/18/21 12:05 Dose: 2 unit Documented by: Lorazepam (Lorazepam 1 Mg Tablet) 1 mg PO TID PRN PRN Reason: Anxiety Pharmacy Consult (Consult Rx Vancomycin Dosing) 1 each MISCELLANE DAILY PRN PRN Reason: Consult order Pharmacy Consult (Consult Rx Perform Med Rec) 1 each MISCELLANE ONCE PRN PRN Reason: Consult order Pharmacy Consult (Consult Rx Vancomycin Dosing) 1 each MISCELLANE DAILY PRN PRN Reason: Consult order Rivaroxaban (Rivaroxaban 20 Mg Tablet) 20 mg PO BEDTIME [facility] Last Admin: 07/17/21 20:13 Dose: 20 mg Documented by: Sacubitril/Valsartan (Sacubitril/Valsartan 1 Tab Tablet) 1 tab PO BID [facility]; Protocol Last Admin: 07/18/21 08:14 Dose: 1 tab Documented by: Sitagliptin Phosphate (Sitagliptin Phosphate 100 Mg Tablet) 100 mg PO DAILY [facility] Last Admin: 07/18/21 08:14 Dose: 100 mg Documented by: Sodium Chloride (0.9 % Sodium Chloride Flush 3 Ml Syringe) 3 ml IVFLUSH QSHIFT [facility] Last Admin: 07/18/21 08:15 Dose: 3 ml Documented by: Home Medications Medication Instructions Recorded Confirmed Last Taken Type Lactobacillus rhamnosus GG 10 1 cap PO DAILY 07/15/21 07/15/21 07/15/21 History billion cell capsule (Culturelle) atorvastatin 40 mg tablet 40 mg PO DAILY 07/15/21 07/15/21 07/15/21 History carvedilol 25 mg tablet 25 mg PO BID 07/15/21 07/15/21 07/15/21 History furosemide 40 mg tablet 40 mg PO BID 07/15/21 07/15/21 07/15/21 History lorazepam 0.5 mg tablet 1 - 2 tab PO TID PRN 07/15/21 07/15/21 Unknown History metformin 500 mg tablet,extended 4 tab PO DAILY 07/15/21 07/15/21 Unknown History release 24 hr rivaroxaban 20 mg tablet (Xarelto) 1 tab PO BEDTIME 07/15/21 07/15/21 07/14/21 History sacubitril 24 mg-valsartan 26 mg 1 tab PO BID 07/15/21 07/15/21 07/14/21 History tablet (Entresto) sitagliptin 100 mg tablet (Januvia) 1 tab PO DAILY 07/15/21 07/15/21 07/14/21 History Physical Exam Vital Signs: Vital Signs: Last Vital Signs Temp 97.8 F 07/18/21 15:34 Pulse 74 07/18/21 15:34 Resp 18 07/18/21 15:34 BP 126/71 07/18/21 15:34 Pulse Ox 100 07/18/21 15:34 BMI result Body Mass Index 32.5 Const: General: cooperative HENMT: Head: Yes normal to inspection Mouth: Normal oral and palatal mucosa present Eyes: General: appearance normal, both eyes and all related structures Resp: Effort & Inspection: normal respiratory effort Cardio: Rate: regular rate Rhythm: regular rhythm GI: Palpation (GI): Soft to palpation and nontender Skin: General skin exam: no rashes or lesions noted Extrem: Other: left great toe appears chronically swollen gangrenous left fourth toe Results Labs CBC & Chem 7: 07/20/21 05:35 07/20/21 05:35 Labs: Short CBC 07/18/21 Range/Units 06:34 WBC 7.8 (4.8-10.8) X10*3/uL Hgb 11.4 L (14.0-18.0) g/dl Hct 36.3 L (42.0-52.0) % Plt Count 203 (160-400) X10*3/uL BMP 07/18/21 06:34 Sodium 139 Potassium 4.7 Chloride 103 Carbon Dioxide 29 BUN 13 Creatinine 0.96 Calcium 8.8 Microbiology Microbiology Results: Microbiology 07/15/21 12:35 Blood - Venous Blood Culture - Preliminary No growth after 48 hours. 07/15/21 12:21 Blood - Venous Blood Culture - Preliminary No growth after 48 hours. Assessment and Plan (1) Dry gangrene: Status: Acute (2) Peripheral vascular disease: Status: Acute (3) Osteomyelitis: Status: Acute possible gram negative,gram positive organisms Plan Await cultures. Zosyn and Vancomycin for now,likely need six weeks and line Surgery per Dr Chung will still leave great toe intact likely so needs six weeks IV
[2021-07-18 19:25] LABS: Vancomycin Trough 13.5 mcg/mL (10.0-20.0)
[2021-07-18 19:30] VITALS: BP 139/68; PULSE 78; RESP 18; TEMP 36.6; O2SAT 98
[2021-07-18 20:11] LABS: Glucose, Whole Blood 126 mg/dL (60-115)
[2021-07-18] MEDS: Rivaroxaban 20 MG TABLET PO (20:43)
[2021-07-18] MEDS: vancomycin HCL 1,000 MG, vancomycin HCL 750 MG in 0.9 % Sodium Chloride 500 ML 267.5 MG IV (21:16)
[2021-07-18 23:59] VITALS: BP 133/72; PULSE 65; RESP 18; TEMP 36.8; O2SAT 96
[2021-07-19] MEDS: Piperacillin Sodium/Tazobactam 3.375 GM in 0.9 % Sodium Chloride 50 ML IV ×4 (01:58→20:23)
[2021-07-19 04:00] VITALS: BP 139/80; PULSE 69; RESP 18; TEMP 36.6; O2SAT 98
[2021-07-19 07:21] VITALS: BP 150/93; PULSE 70; RESP 17; TEMP 36.7; O2SAT 98
[2021-07-19 07:29] LABS: Glucose, Whole Blood 121 mg/dL (60-115)
[2021-07-19] MEDS: Atorvastatin Calcium 40 MG TABLET PO (07:58)
[2021-07-19] MEDS: SITagliptin Phosphate 100 MG TABLET PO (07:58)
[2021-07-19] MEDS: Furosemide 40 MG TABLET PO ×2 (07:59→20:24)
[2021-07-19] MEDS: carvediloL 25 MG TABLET PO ×2 (07:59→20:23)
[2021-07-19] MEDS: Sacubitril/Valsartan 24/26 1 TAB TABLET PO ×2 (07:59→20:24)
[2021-07-19] MEDS: 0.9 % Sodium Chloride Flush 3 ML SYRINGE IVFLUSH ×3 (07:59→20:24)
--- NOTE | 2021-07-19 08:59 | HO.PM.IMPN ---
Subjective Subjective Date of Service: 07/19/21 Interval History: cc: erythema of left fott dorsum interval history:no new complaints, some improvement of ertyhema Cardiovascular Cardiovascular: Reports no additional cardiovascular complaints Respiratory Respiratory: Reports no additional respiratory complaints Physical Exam Vital Signs: Vital Signs: Last Vital Signs Temp 98.1 F 07/19/21 07:21 Pulse 70 07/19/21 07:21 Resp 17 07/19/21 07:21 BP 150/93 H 07/19/21 07:21 Pulse Ox 98 07/19/21 07:21 BMI result Body Mass Index 32.5 General: AO X 3, no acute distress Resp:? CTA bilateral, no accessory muscles used CVS: S1,S2,RRR GI: soft, non tender, non distended Neuro:? motor grossly intact, alert Psych: appropriate affect, appropriate insight? left foot: 4th toe dry gangrene, dorsum erythema, Objective Data Active Medications Atorvastatin Calcium (Atorvastatin Calcium 40 Mg Tablet) 40 mg PO DAILY [facility] Last Admin: 07/19/21 07:58 Dose: 40 mg Documented by: JOSH Carvedilol (Carvedilol 25 Mg Tablet) 25 mg PO BID [facility]; Protocol Last Admin: 07/19/21 07:59 Dose: 25 mg Documented by: JSOH Dextrose (Dextrose 50 % 25 Gm/50 Ml Vial) 25 gm IVPUSH Q15M PRN; Protocol PRN Reason: per Hypoglycemia Standing Ord. Furosemide (Furosemide 40 Mg Tablet) 40 mg PO BID [facility]; Protocol Last Admin: 07/19/21 07:59 Dose: 40 mg Documented by: JOSH Glucose (Glucose Gel 15 Gm Gel..Gram.) 15 gm PO Q15M PRN; Protocol PRN Reason: per Hypoglycemia Standing Ord. Piperacillin Sod/Tazobactam (Sod 3.375 gm/ Sodium Chloride) 50 mls @ 100 mls/hr IV Q6H [facility] Last Infusion: 07/19/21 08:37 Dose: 0 mls/hr Documented by: JOSH Vancomycin HCl 1,000 mg/Vancomycin HCl 750 mg/ Sodium Chloride 535 mls @ 267.5 mls/hr IV Q24H [facility] Last Infusion: 07/18/21 23:22 Dose: 0 mls/hr Documented by: REJI Insulin Human Lispro (Insulin Lispro 100 Unit/Ml 3 Ml Vial) 0 unit SUBCUT QIDACHS [facility]; Protocol Last Admin: 07/19/21 07:30 Dose: Not Given Documented by: JOSH Non-Admin Reason: No Insulin Coverage Lorazepam (Lorazepam 1 Mg Tablet) 1 mg PO TID PRN PRN Reason: Anxiety Pharmacy Consult (Consult Rx Vancomycin Dosing) 1 each MISCELLANE DAILY PRN PRN Reason: Consult order Pharmacy Consult (Consult Rx Perform Med Rec) 1 each MISCELLANE ONCE PRN PRN Reason: Consult order Pharmacy Consult (Consult Rx Vancomycin Dosing) 1 each MISCELLANE DAILY PRN PRN Reason: Consult order Rivaroxaban (Rivaroxaban 20 Mg Tablet) 20 mg PO BEDTIME [facility] Last Admin: 07/18/21 20:43 Dose: 20 mg Documented by: REJI Sacubitril/Valsartan (Sacubitril/Valsartan 1 Tab Tablet) 1 tab PO BID [facility]; Protocol Last Admin: 07/19/21 07:59 Dose: 1 tab Documented by: JOSH Sitagliptin Phosphate (Sitagliptin Phosphate 100 Mg Tablet) 100 mg PO DAILY [facility] Last Admin: 07/19/21 07:58 Dose: 100 mg Documented by: JOSH Sodium Chloride (0.9 % Sodium Chloride Flush 3 Ml Syringe) 3 ml IVFLUSH QSHIFT [facility] Last Admin: 07/19/21 07:59 Dose: 3 ml Documented by: JOSH Labs CBC & Chem 7: 07/18/21 06:34 07/18/21 06:34 Labs: Laboratory Results - last 24 hr 07/18/21 07/18/21 07/18/21 11:31 15:37 18:55 POC Glucose 171 H 180 H Vancomycin Trough 13.5 07/18/21 07/19/21 19:34 07:20 POC Glucose 126 H 121 H Vancomycin Trough Assessment and Plan (1) Peripheral vascular disease: Status: Acute Plan 71M? presented with worsening erythema of left dorsum of foot. ? Left foot diabetic/vascular dry gangrene with cellulitis ?status post angioplasty last week ?continue statin xarelto held for surgery ?vancomycin, Zosyn, monitor trough, creatinine arterial us negative plan for amputation of 4th toe 07/20/21 ?cellulitis and possible osteomyelitis of left 1st toe with foreign body CT showing metallic foreign body, cellulitis, possible chronic OM no plan for surgical intervention ID appreciated, will likely still require 6 weeks IV antibiotics after 4th toe amputation ?chronic systolic CHF ?continue carvedilol, Entresto,? furosemide ?diabetes ?holding metformin ?continue Januvia ?insulin sliding scale (patient not interested unless significantly hyperglycemic) monitor poc ?hypertension ?carvedilol,? valsartan (entresto) ?hyperlipidemia ?statin ?paroxysmal atrial fibrillation ?carvedilol and Xarelto (on hold for surgery) ?DVT prophylaxis-on Xarelto (on hold for surgery) ?full code reason for continued hospitalization: requiring iv abx for OM/cellulitis, plan for surgical intervention prior to discharge, risk for decompensation to sepsis due to DM, vascular disease Quality Stroke Does the patient have a stroke diagnosis?: No VTE Prior VTE?: No VTE Risk Level:: Medical - moderate - high VTE Device Contraindication: Treatment Not Indicated VTE Drug Contraindication: N/A - Med Ordered
--- NOTE | 2021-07-19 09:13 | HO.VASCPN ---
Subjective Subjective Date of Service: 07/19/21 Patient reports: no new complaints and feels better Interval history: Patient seen and examined. No significant events overnight. Doing relatively well. Reports that the pain and discomfort in the foot have significantly improved. He also reports that he believes the erythema has decreased somewhat as well. He now presents for follow-up of the left foot. Physical Exam Vital Signs: Vital Signs: Last Vital Signs Temp 98.1 F 07/19/21 07:21 Pulse 70 07/19/21 07:21 Resp 17 07/19/21 07:21 BP 150/93 H 07/19/21 07:21 Pulse Ox 98 07/19/21 07:21 BMI result Body Mass Index 32.5 Const: General: cooperative, healthy appearing and no acute distress Orientation/consciousness: oriented to person, oriented to place and oriented to time HENMT: Head: Yes normal to inspection Neck: Carotids: no bruits Chest: Chest palpation & inspection: normal inspection of the chest Resp: Effort & Inspection: normal respiratory effort and able to speak in complete sentences Auscultation: clear to auscultation bilaterally Cardio: Rate: regular rate Heart sounds: S1 normal heart sound present and S2 normal heart sound present GI: Inspection: Yes normal to inspection Skin: General skin exam: no rashes or lesions noted Wounds: wounds noted (Left 4th toe dry gangrene) Neuro: General: oriented to person, oriented to place, oriented to time and CN's II-XI intact bilaterally Extrem: General: Yes normal to inspection, Yes full ROM and Yes no clubbing, cyanosis or edema Psych: Appearance: grossly normal and well kempt Speech and movement: Normal speech and movement present Affect: normal affect Progress Note: A&P Assessment and plan (1) Peripheral vascular disease: Status: Acute Assessment and Plan: In short patient has left 4th toe dry gangrene. The surrounding erythema has significantly decreased since admission. He will require left 4th toe amputation. Risks benefits complications were discussed in detail with the patient including but not limited to bleeding infection nonhealing requirement of further amputation. He was in agreement. We will schedule for tomorrow. Thank you for allowing us to participate in his care. If there are any questions or concerns please do not hesitate to contact us. Fall Risk Details Current Medications: Current Medications Atorvastatin Calcium (Atorvastatin Calcium 40 Mg Tablet) 40 mg PO DAILY [facility] Last Admin: 07/19/21 07:58 Dose: 40 mg Documented by: Carvedilol (Carvedilol 25 Mg Tablet) 25 mg PO BID [facility]; Protocol Last Admin: 07/19/21 07:59 Dose: 25 mg Documented by: Dextrose (Dextrose 50 % 25 Gm/50 Ml Vial) 25 gm IVPUSH Q15M PRN; Protocol PRN Reason: per Hypoglycemia Standing Ord. Furosemide (Furosemide 40 Mg Tablet) 40 mg PO BID [facility]; Protocol Last Admin: 07/19/21 07:59 Dose: 40 mg Documented by: Glucose (Glucose Gel 15 Gm Gel..Gram.) 15 gm PO Q15M PRN; Protocol PRN Reason: per Hypoglycemia Standing Ord. Piperacillin Sod/Tazobactam (Sod 3.375 gm/ Sodium Chloride) 50 mls @ 100 mls/hr IV Q6H [facility] Last Infusion: 07/19/21 08:37 Dose: Infused Documented by: Vancomycin HCl 1,000 mg/Vancomycin HCl 750 mg/ Sodium Chloride 535 mls @ 267.5 mls/hr IV Q24H [facility] Last Infusion: 07/18/21 23:22 Dose: Infused Documented by: Insulin Human Lispro (Insulin Lispro 100 Unit/Ml 3 Ml Vial) 0 unit SUBCUT QIDACHS [facility]; Protocol Last Admin: 07/19/21 07:30 Dose: Not Given Documented by: Lorazepam (Lorazepam 1 Mg Tablet) 1 mg PO TID PRN PRN Reason: Anxiety Pharmacy Consult (Consult Rx Vancomycin Dosing) 1 each MISCELLANE DAILY PRN PRN Reason: Consult order Pharmacy Consult (Consult Rx Perform Med Rec) 1 each MISCELLANE ONCE PRN PRN Reason: Consult order Pharmacy Consult (Consult Rx Vancomycin Dosing) 1 each MISCELLANE DAILY PRN PRN Reason: Consult order Sacubitril/Valsartan (Sacubitril/Valsartan 1 Tab Tablet) 1 tab PO BID [facility]; Protocol Last Admin: 07/19/21 07:59 Dose: 1 tab Documented by: Sitagliptin Phosphate (Sitagliptin Phosphate 100 Mg Tablet) 100 mg PO DAILY [facility] Last Admin: 07/19/21 07:58 Dose: 100 mg Documented by: Sodium Chloride (0.9 % Sodium Chloride Flush 3 Ml Syringe) 3 ml IVFLUSH QSHIFT [facility] Last Admin: 07/19/21 07:59 Dose: 3 ml Documented by: Time Spent With Patient Time: Total time spent is greater than 50% in coordination of care (as documented) at patient's floor/unit and/or counseling patient: Time with patient: 15 - 24 minutes Procedures Date of Service Date of Service: 07/19/21 Quality Stroke Does the patient have a stroke diagnosis?: No VTE Prior VTE?: No VTE Risk Level:: Medical - moderate - high VTE Device Contraindication: Treatment Not Indicated VTE Drug Contraindication: N/A - Med Ordered
[2021-07-19 09:15] LABS: Anion Gap 10 (12-20); Blood Urea Nitrogen 15 mg/dL (9-16); Calcium 8.8 mg/dL (8.4-10.2); Carbon Dioxide 29 mmol/L (22-29); Chloride 102 mmol/L (96-108); Creatinine Clr Calc Pharmacy 93.7; Estimated Glomerular Filt Rate > 60; Glucose Random 189 mg/dL (60-115); Sodium 137 mmol/L (135-145)
[2021-07-19 11:17] LABS: Glucose, Whole Blood 165 mg/dL (60-115)
[2021-07-19 11:38] VITALS: BP 151/82; PULSE 77; RESP 18; TEMP 36.6; O2SAT 98
[2021-07-19] MEDS: Insulin Lispro 100 UNIT/ML 3 ML VIAL SUBCUT ×2 (11:43→20:24)
--- NOTE | 2021-07-19 14:46 | MHC.CM.PN ---
POTENTIAL DC ON SATURDAY AFTER PICC. AMP SCHEDULED FOR Saturday07/20/21 [facility] OFFERING RN SKILLS. CURRENTLY, NO RESPONSE FROM [facility]. CASE MANAGEMENT TO UPDATE REFERRAL ON SATURDAY IF NO OFFER FOR HOME INFUSION.
[2021-07-19 15:54] VITALS: BP 152/99; PULSE 69; RESP 18; TEMP 37.1; O2SAT 99
[2021-07-19 16:48] LABS: Glucose, Whole Blood 130 mg/dL (60-115)
[2021-07-19 20:00] VITALS: BP 138/85; PULSE 68; RESP 18; TEMP 36.9; O2SAT 97
[2021-07-19 20:06] LABS: Glucose, Whole Blood 170 mg/dL (60-115)
[2021-07-19] MEDS: vancomycin HCL 1,000 MG, vancomycin HCL 750 MG in 0.9 % Sodium Chloride 500 ML 267.5 MG IV (21:06)
[2021-07-19 23:55] VITALS: BP 140/78; PULSE 60; RESP 18; TEMP 36.8; O2SAT 98
[2021-07-20] VITALS (10 sets, daily range): BP systolic 95–155; BP diastolic 52–95; PULSE 57–89; RESP 12–18; TEMP 36.3–36.9; O2SAT 95–99
--- NOTE | 2021-07-20 | ECG_ITS ---
Test Reason : CK RHYTHM Blood Pressure : / mmHG Vent. Rate : 082 BPM Atrial Rate : 000 BPM P-R Int : 000 ms QRS Dur : 140 ms QT Int : 434 ms P-R-T Axes : 000 -39 071 degrees QTc Int : 507 ms Atrial fibrillation Left axis deviation Non-specific intra-ventricular conduction block Minimal voltage criteria for LVH, may be normal variant ( [place] product ) Abnormal ECG No previous ECGs available Referred By: Joaquina Vázquez Electronically Signed By:JOSE J PAPPAS MD
[2021-07-20] MEDS: Piperacillin Sodium/Tazobactam 3.375 GM in 0.9 % Sodium Chloride 50 ML IV ×4 (01:51→20:04)
[2021-07-20 06:21] LABS: Hematocrit 36.6 % (42.0-52.0); Hemoglobin 11.5 g/dl (14.0-18.0); Mean Corpuscular HGB Conc 31.4 g/dl (31.0-36.0); Mean Corpuscular Hemoglobin 27.6 pg (27.0-33.0); Mean Corpuscular Volume 87.8 fL (80.0-98.0); Mean Platelet Volume 9.8 fL (9.4-12.4); Platelet Count 239 X10*3/uL (160-400); Red Blood Count 4.17 X10*6/uL (4.60-5.80); Red Cell Distribution Width 15.8 % (11.0-16.0); White Blood Count 7.9 X10*3/uL (4.8-10.8)
[2021-07-20 06:42] LABS: Anion Gap 10 (12-20); Blood Urea Nitrogen 15 mg/dL (9-16); Calcium 8.7 mg/dL (8.4-10.2); Carbon Dioxide 29 mmol/L (22-29); Chloride 103 mmol/L (96-108); Creatinine Clr Calc Pharmacy 107.8; Estimated Glomerular Filt Rate > 60; Glucose Fasting 104 mg/dL (60-99); Potassium 4.1 mmol/L (3.3-5.1); Sodium 138 mmol/L (135-145)
--- NOTE | 2021-07-20 07:28 | HE.PHANOTE ---
VANCOMYCIN DOSING ADDENDUM: Patient renal function is good with a Scr of 0.87. Will continue current regimen at 1750 mg at Q24H, next trough will be drawn on 07/20 @ 1900.
[2021-07-20 07:40] LABS: Glucose, Whole Blood 129 mg/dL (60-115)
[2021-07-20] MEDS: Furosemide 40 MG TABLET PO ×2 (07:59→20:04)
[2021-07-20] MEDS: carvediloL 25 MG TABLET PO ×2 (07:59→20:05)
[2021-07-20] MEDS: Atorvastatin Calcium 40 MG TABLET PO (07:59)
[2021-07-20] MEDS: Sacubitril/Valsartan 24/26 1 TAB TABLET PO ×2 (07:59→20:05)
[2021-07-20] MEDS: SITagliptin Phosphate 100 MG TABLET PO (07:59)
[2021-07-20] MEDS: 0.9 % Sodium Chloride Flush 3 ML SYRINGE IVFLUSH (08:01)
--- NOTE | 2021-07-20 10:38 | MHC.SHP ---
Pre-Procedural Eval Section A Date of Service: 07/20/21 The patient is an INPATIENT: Yes Changes since office visit: Yes Patient answered all questions The History & Physical has been completed within 30 days and I have reviewed it.: Yes Section B Chief Complaint: OM Allergies: Allergies Allergy/AdvReac Type Severity Reaction Status Date / Time No Known Allergies Allergy Verified 07/15/21 10:33 Plan I have reviewed the history and physical and performed a pertinent physical examination on my patient. No changes have occurred unless specified.
[2021-07-20 11:42] LABS: Glucose, Whole Blood 141 mg/dL (60-115)
--- NOTE | 2021-07-20 11:53 | HO.ANESPROP2 ---
HPI - Anesthesia Eval Consult details Narrative: 71 yo male patient for Left 4th toe amputation PMFSH Active Problems Active Problems: All Active Problems (Updated 07/18/21 @ 16:09 by Shivani Ruiz MD) Osteomyelitis (Acute) Dry gangrene (Acute) Peripheral vascular disease (Acute)S/p angioplasty Chronic systolic (congestive) heart failure (Acute) Foot osteomyelitis, left (Acute) Cellulitis of foot, left (Acute) HLD (hyperlipidemia) (Acute) HTN (hypertension) (Acute) Paroxysmal atrial fibrillation (Acute). On xarelto. None since admission 07/15/21 Diabetes mellitus (Acute) Past Medical History Medical History Chronic systolic (congestive) heart failure Diabetes mellitus Dry gangrene HLD (hyperlipidemia) HTN (hypertension) Osteomyelitis Paroxysmal atrial fibrillation Peripheral vascular disease Traumatic subdural hematoma Family History Family History Father No problems noted. Family history of problems with anesthesia: No Surgical History Surgical History H/O angioplasty History of Problems with Anesthesia: No Social History Social History Household Members: Spouse Housing: House Do you presently have visiting nurse or other home services: No Alcohol intake: former Year quit: 1999 Patient Tobacco Use Status: Never used Tobacco Second Hand Smoke Exposure: No Advance Directives Date on File: 07/15/21 service: No Current occupational status: retired Meds Allergies Allergy/AdvReac Type Severity Reaction Status Date / Time No Known Allergies Allergy Verified 07/15/21 10:33 Active Medications: Current Medications Atorvastatin Calcium (Atorvastatin Calcium 40 Mg Tablet) 40 mg PO DAILY [facility] Last Admin: 07/20/21 07:59 Dose: 40 mg Documented by: Carvedilol (Carvedilol 25 Mg Tablet) 25 mg PO BID [facility]; Protocol Last Admin: 07/20/21 07:59 Dose: 25 mg Documented by: Dextrose (Dextrose 50 % 25 Gm/50 Ml Vial) 25 gm IVPUSH Q15M PRN; Protocol PRN Reason: per Hypoglycemia Standing Ord. Furosemide (Furosemide 40 Mg Tablet) 40 mg PO BID [facility]; Protocol Last Admin: 07/20/21 07:59 Dose: 40 mg Documented by: Glucose (Glucose Gel 15 Gm Gel..Gram.) 15 gm PO Q15M PRN; Protocol PRN Reason: per Hypoglycemia Standing Ord. Piperacillin Sod/Tazobactam (Sod 3.375 gm/ Sodium Chloride) 50 mls @ 100 mls/hr IV Q6H [facility] Last Infusion: 07/20/21 08:55 Dose: Infused Documented by: Vancomycin HCl 1,000 mg/Vancomycin HCl 750 mg/ Sodium Chloride 535 mls @ 267.5 mls/hr IV Q24H [facility] Last Infusion: 07/19/21 23:07 Dose: Infused Documented by: Insulin Human Lispro (Insulin Lispro 100 Unit/Ml 3 Ml Vial) 0 unit SUBCUT QIDACHS [facility]; Protocol Last Admin: 07/20/21 11:45 Dose: Not Given Documented by: Lorazepam (Lorazepam 1 Mg Tablet) 1 mg PO TID PRN PRN Reason: Anxiety Pharmacy Consult (Consult Rx Vancomycin Dosing) 1 each MISCELLANE DAILY PRN PRN Reason: Consult order Pharmacy Consult (Consult Rx Perform Med Rec) 1 each MISCELLANE ONCE PRN PRN Reason: Consult order Pharmacy Consult (Consult Rx Vancomycin Dosing) 1 each MISCELLANE DAILY PRN PRN Reason: Consult order Sacubitril/Valsartan (Sacubitril/Valsartan 1 Tab Tablet) 1 tab PO BID [facility]; Protocol Last Admin: 07/20/21 07:59 Dose: 1 tab Documented by: Sitagliptin Phosphate (Sitagliptin Phosphate 100 Mg Tablet) 100 mg PO DAILY [facility] Last Admin: 07/20/21 07:59 Dose: 100 mg Documented by: Sodium Chloride (0.9 % Sodium Chloride Flush 3 Ml Syringe) 3 ml IVFLUSH QSHIFT [facility] Last Admin: 07/20/21 08:01 Dose: 3 ml Documented by: Home Medications Medication Instructions Recorded Confirmed Last Taken Type Lactobacillus rhamnosus GG 10 1 cap PO DAILY 07/15/21 07/15/21 07/15/21 History billion cell capsule (Culturelle) atorvastatin 40 mg tablet 40 mg PO DAILY 07/15/21 07/15/21 07/15/21 History carvedilol 25 mg tablet 25 mg PO BID 07/15/21 07/15/21 07/15/21 History furosemide 40 mg tablet 40 mg PO BID 07/15/21 07/15/21 07/15/21 History lorazepam 0.5 mg tablet 1 - 2 tab PO TID PRN 07/15/21 07/15/21 Unknown History metformin 500 mg tablet,extended 4 tab PO DAILY 07/15/21 07/15/21 Unknown History release 24 hr rivaroxaban 20 mg tablet (Xarelto) 1 tab PO BEDTIME 07/15/21 07/15/21 07/14/21 History sacubitril 24 mg-valsartan 26 mg 1 tab PO BID 07/15/21 07/15/21 07/14/21 History tablet (Entresto) sitagliptin 100 mg tablet (Januvia) 1 tab PO DAILY 07/15/21 07/15/21 07/14/21 History Exam Exam Date and Time: July 20, 2021 1153 Height,Weight and Vital Signs: Height 6 ft 3 in Weight 117.934 kg Last Vital Signs Temp 98.2 F 07/20/21 11:38 Pulse 82 07/20/21 11:38 Resp 16 07/20/21 11:38 BP 148/86 H 07/20/21 11:38 Pulse Ox 99 07/20/21 11:38 Pertinent Lab Results Pertinent Lab Results: Laboratory Tests 07/15/21 07/15/21 07/15/21 12:21 12:21 12:21 WBC 10.1 RBC 4.60 Hgb 12.7 L Hct 39.0 L MCV 84.8 MCH 27.6 MCHC 32.6 RDW 15.9 Plt Count 228 MPV 9.4 Immature Gran % (Auto) 0.3 Neut % (Auto) 81.5 H Lymph % (Auto) 8.7 L [place] % (Auto) 8.0 Eos % (Auto) 1.0 Baso % (Auto) 0.5 Lymph # (Auto) 0.9 L [place] # (Auto) 0.8 Eos # (Auto) 0.1 Baso # (Auto) 0.1 Abs Immat Gran (auto) 0.03 Absolute Neuts (auto) 8.3 Absolute Nucleated RBC 0.000 Nucleated RBC % (auto) 0.0 Sodium 135 Potassium 4.7 Chloride 99 Carbon Dioxide 28 Anion Gap 13 BUN 16 Creatinine 0.87 Estim Creat Clear Calc 107.8 Estimated GFR > 60 POC Glucose Random Glucose 191 H Fasting Glucose Lactic Acid 0.9 Calcium 9.3 Total Bilirubin 1.5 H Direct Bilirubin 0.9 H AST 22 ALT 27 Alkaline Phosphatase 121 H Total Protein 7.2 Albumin 3.5 Vancomycin Trough Random Vancomycin COVID-19 (RADHA) COVID-19 Clin Com 07/15/21 07/15/21 07/15/21 12:21 16:40 20:43 WBC RBC Hgb Hct MCV MCH MCHC RDW Plt Count MPV Immature Gran % (Auto) Neut % (Auto) Lymph % (Auto) [place] % (Auto) Eos % (Auto) Baso % (Auto) Lymph # (Auto) [place] # (Auto) Eos # (Auto) Baso # (Auto) Abs Immat Gran (auto) Absolute Neuts (auto) Absolute Nucleated RBC Nucleated RBC % (auto) Sodium Potassium Chloride Carbon Dioxide Anion Gap BUN Creatinine Estim Creat Clear Calc Estimated GFR POC Glucose 172 H 164 H Random Glucose Fasting Glucose Lactic Acid Calcium Total Bilirubin Direct Bilirubin AST ALT Alkaline Phosphatase Total Protein Albumin Vancomycin Trough Random Vancomycin COVID-19 (RADHA) Negative COVID-19 [facility] See Note 07/16/21 07/16/21 07/16/21 06:07 06:07 07:57 WBC 8.4 RBC 4.26 L Hgb 11.6 L Hct 37.0 L MCV 86.9 MCH 27.2 MCHC 31.4 RDW 16.0 Plt Count 224 MPV 9.6 Immature Gran % (Auto) Neut % (Auto) Lymph % (Auto) [place] % (Auto) Eos % (Auto) Baso % (Auto) Lymph # (Auto) [place] # (Auto) Eos # (Auto) Baso # (Auto) Abs Immat Gran (auto) Absolute Neuts (auto) Absolute Nucleated RBC 0.000 Nucleated RBC % (auto) 0.0 Sodium 136 Potassium 4.1 Chloride 101 Carbon Dioxide 26 Anion Gap 13 BUN 14 Creatinine 0.82 Estim Creat Clear Calc 114.3 Estimated GFR > 60 POC Glucose 146 H Random Glucose Fasting Glucose 115 H Lactic Acid Calcium 8.7 D Total Bilirubin Direct Bilirubin AST ALT Alkaline Phosphatase Total Protein Albumin Vancomycin Trough Random Vancomycin COVID-19 ([facility]) COVID-19 Clin Com 07/16/21 07/16/21 07/16/21 10:49 11:42 16:06 WBC RBC Hgb Hct MCV MCH MCHC RDW Plt Count MPV Immature Gran % (Auto) Neut % (Auto) Lymph % (Auto) [place] % (Auto) Eos % (Auto) Baso % (Auto) Lymph # (Auto) [place] # (Auto) Eos # (Auto) Baso # (Auto) Abs Immat Gran (auto) Absolute Neuts (auto) Absolute Nucleated RBC Nucleated RBC % (auto) Sodium Potassium Chloride Carbon Dioxide Anion Gap BUN Creatinine Estim Creat Clear Calc Estimated GFR POC Glucose 232 H 182 H Random Glucose Fasting Glucose Lactic Acid Calcium Total Bilirubin Direct Bilirubin AST ALT Alkaline Phosphatase Total Protein Albumin Vancomycin Trough Random Vancomycin 13.0 L COVID-19 (RADHA) COVID-19 [facility] 07/16/21 07/17/21 07/17/21 19:26 06:56 10:24 WBC RBC Hgb Hct MCV MCH MCHC RDW Plt Count MPV Immature Gran % (Auto) Neut % (Auto) Lymph % (Auto) [place] % (Auto) Eos % (Auto) Baso % (Auto) Lymph # (Auto) [place] # (Auto) Eos # (Auto) Baso # (Auto) Abs Immat Gran (auto) Absolute Neuts (auto) Absolute Nucleated RBC Nucleated RBC % (auto) Sodium Potassium Chloride Carbon Dioxide Anion Gap BUN Creatinine 0.89 Estim Creat Clear Calc 105.3 Estimated GFR > 60 POC Glucose 145 H 139 H Random Glucose Fasting Glucose Lactic Acid Calcium Total Bilirubin Direct Bilirubin AST ALT Alkaline Phosphatase Total Protein Albumin Vancomycin Trough Random Vancomycin COVID-19 (RADHA) COVID-19 [facility] 07/17/21 07/17/21 07/17/21 10:24 11:00 16:18 WBC RBC Hgb Hct MCV MCH MCHC RDW Plt Count MPV Immature Gran % (Auto) Neut % (Auto) Lymph % (Auto) [place] % (Auto) Eos % (Auto) Baso % (Auto) Lymph # (Auto) [place] # (Auto) Eos # (Auto) Baso # (Auto) Abs Immat Gran (auto) Absolute Neuts (auto) Absolute Nucleated RBC Nucleated RBC % (auto) Sodium Potassium Chloride Carbon Dioxide Anion Gap BUN Creatinine Estim Creat Clear Calc Estimated GFR POC Glucose 201 H 163 H Random Glucose Fasting Glucose Lactic Acid Calcium Total Bilirubin Direct Bilirubin AST ALT Alkaline Phosphatase Total Protein Albumin Vancomycin Trough 18.7 Random Vancomycin COVID-19 ([facility]) COVID-[employer] 07/17/21 07/18/21 07/18/21 19:46 06:34 06:34 WBC 7.8 RBC 4.23 L Hgb 11.4 L Hct 36.3 L MCV 85.8 MCH 27.0 MCHC 31.4 RDW 16.1 H Plt Count 203 MPV 9.4 Immature Gran % (Auto) Neut % (Auto) Lymph % (Auto) [place] % (Auto) Eos % (Auto) Baso % (Auto) Lymph # (Auto) [place] # (Auto) Eos # (Auto) Baso # (Auto) Abs Immat Gran (auto) Absolute Neuts (auto) Absolute Nucleated RBC 0.000 Nucleated RBC % (auto) 0.0 Sodium 139 Potassium 4.7 Chloride 103 Carbon Dioxide 29 Anion Gap 12 BUN 13 Creatinine 0.96 Estim Creat Clear Calc 97.7 Estimated GFR > 60 POC Glucose 194 H Random Glucose Fasting Glucose 104 H Lactic Acid Calcium 8.8 Total Bilirubin Direct Bilirubin AST ALT Alkaline Phosphatase Total Protein Albumin Vancomycin Trough Random Vancomycin COVID-19 ([facility]) COVID-19 [facility] 07/18/21 07/18/21 07/18/21 07:12 11:31 15:37 WBC RBC Hgb Hct MCV MCH MCHC RDW Plt Count MPV Immature Gran % (Auto) Neut % (Auto) Lymph % (Auto) [place] % (Auto) Eos % (Auto) Baso % (Auto) Lymph # (Auto) [place] # (Auto) Eos # (Auto) Baso # (Auto) Abs Immat Gran (auto) Absolute Neuts (auto) Absolute Nucleated RBC Nucleated RBC % (auto) Sodium Potassium Chloride Carbon Dioxide Anion Gap BUN Creatinine Estim Creat Clear Calc Estimated GFR POC Glucose 134 H 171 H 180 H Random Glucose Fasting Glucose Lactic Acid Calcium Total Bilirubin Direct Bilirubin AST ALT Alkaline Phosphatase Total Protein Albumin Vancomycin Trough Random Vancomycin COVID-19 (RADHA) COVID-19 [facility] 07/18/21 07/18/21 07/19/21 18:55 19:34 07:20 WBC RBC Hgb Hct MCV MCH MCHC RDW Plt Count MPV Immature Gran % (Auto) Neut % (Auto) Lymph % (Auto) [place] % (Auto) Eos % (Auto) Baso % (Auto) Lymph # (Auto) [place] # (Auto) Eos # (Auto) Baso # (Auto) Abs Immat Gran (auto) Absolute Neuts (auto) Absolute Nucleated RBC Nucleated RBC % (auto) Sodium Potassium Chloride Carbon Dioxide Anion Gap BUN Creatinine Estim Creat Clear Calc Estimated GFR POC Glucose 126 H 121 H Random Glucose Fasting Glucose Lactic Acid Calcium Total Bilirubin Direct Bilirubin AST ALT Alkaline Phosphatase Total Protein Albumin Vancomycin Trough 13.5 Random Vancomycin COVID-19 ([facility]) COVID-19 [facility] 07/19/21 07/19/21 07/19/21 08:37 11:12 15:57 WBC RBC Hgb Hct MCV MCH MCHC RDW Plt Count MPV Immature Gran % (Auto) Neut % (Auto) Lymph % (Auto) [place] % (Auto) Eos % (Auto) Baso % (Auto) Lymph # (Auto) [place] # (Auto) Eos # (Auto) Baso # (Auto) Abs Immat Gran (auto) Absolute Neuts (auto) Absolute Nucleated RBC Nucleated RBC % (auto) Sodium 137 Potassium 4.0 Chloride 102 Carbon Dioxide 29 Anion Gap 10 L BUN 15 Creatinine 1.00 Estim Creat Clear Calc 93.7 Estimated GFR > 60 POC Glucose 165 H 130 H Random Glucose 189 H Fasting Glucose Lactic Acid Calcium 8.8 Total Bilirubin Direct Bilirubin AST ALT Alkaline Phosphatase Total Protein Albumin Vancomycin Trough Random Vancomycin COVID-19 ([facility]) COVID-19 [facility] 07/19/21 07/20/21 07/20/21 19:37 05:35 05:35 WBC 7.9 RBC 4.17 L Hgb 11.5 L Hct 36.6 L MCV 87.8 MCH 27.6 MCHC 31.4 RDW 15.8 Plt Count 239 MPV 9.8 Immature Gran % (Auto) Neut % (Auto) Lymph % (Auto) [place] % (Auto) Eos % (Auto) Baso % (Auto) Lymph # (Auto) [place] # (Auto) Eos # (Auto) Baso # (Auto) Abs Immat Gran (auto) Absolute Neuts (auto) Absolute Nucleated RBC 0.000 Nucleated RBC % (auto) 0.0 Sodium 138 Potassium 4.1 Chloride 103 Carbon Dioxide 29 Anion Gap 10 L BUN 15 Creatinine 0.87 Estim Creat Clear Calc 107.8 Estimated GFR > 60 POC Glucose 170 H Random Glucose Fasting Glucose 104 H Lactic Acid Calcium 8.7 Total Bilirubin Direct Bilirubin AST ALT Alkaline Phosphatase Total Protein Albumin Vancomycin Trough Random Vancomycin COVID-19 ([facility]HA) COVID-19 [facility] 07/20/21 07/20/21 07:36 11:28 WBC RBC Hgb Hct MCV MCH MCHC RDW Plt Count MPV Immature Gran % (Auto) Neut % (Auto) Lymph % (Auto) [place] % (Auto) Eos % (Auto) Baso % (Auto) Lymph # (Auto) [place] # (Auto) Eos # (Auto) Baso # (Auto) Abs Immat Gran (auto) Absolute Neuts (auto) Absolute Nucleated RBC Nucleated RBC % (auto) Sodium Potassium Chloride Carbon Dioxide Anion Gap BUN Creatinine Estim Creat Clear Calc Estimated GFR POC Glucose 129 H 141 H Random Glucose Fasting Glucose Lactic Acid Calcium Total Bilirubin Direct Bilirubin AST ALT Alkaline Phosphatase Total Protein Albumin Vancomycin Trough Random Vancomycin COVID-19 ([facility]) COVID-19 Clin Com Narrative Narrative: 07/20/21: 12 lead EKG- Afib. Vent rate 82. LAD. Non-specific intraventricular block. Minimal voltage criteria for LVH, maybe normal variant Airway Mallampati Class: II TM Dist: >3cm Neck ROM: Full Loose/Missing/Broken Teeth: No Heart: Irregularly irregular Lungs: CTAB Assessment and Plan Assessment Anesthesia Assessment: Anesthesia Plan Discussed and Chart Reviewed Final Anesthetic Review Family History of Problems with Anesthesia: No History of Problems with Anesthesia: No NPO: Yes ASA Class: III Final Preanesthetic Review: No Changes in Pt Med Stat, Meds/Allgs Chart Reviewed, Consent Obtained/Reviewed and Anes Risks/Benef Reviewed Patient Risk: Intermediate Procedure Risk: Low Assessment/Block/Sedation in SS: Assess/Block/Sedation-SS Anesthetic Plan Anesthetic Plan: GA Disposition: Standard PACU and Inp. Admit - Standard Bed
--- NOTE | 2021-07-20 12:27 | P.F2F_ITS ---
Service Date Service Date: 07/20/21 Encounter Date of encounter: 07/20/21 Reasons for Services Signs and symptoms assessed: Needs IV antibiotics, post amputation Reason for retirement: wound care, central line care and teach disease management Homebound: Leaving the home is medically contraindicated at this time without the asist of a device and/or another person due th the listed conditions above and below. Reason homebound: other Certification: Based on the above findings, I certify that this patient is confined to the home and needs intermittent retirement care, physical therapy and/or speech therapy, or continues to need occupational therapy. The patient is under my care, and I have initiated the establishment of the plan of care. The patient will be followed by a physician who will periodically review the plan of care.
--- NOTE | 2021-07-20 12:28 | HO.PM.IMPN ---
Subjective Subjective Date of Service: 07/20/21 Interval History: cc: gangrene of little toe anderythema of left foot dorsum interval history: feels fairly okay with some improvement of ertyhema at the base of the toe Plan to do amputation of the 4th toe Will need IV central line for IV antibiotics at time of discharge Review of Systems Constitutional: Denies fever, denies Chills Eyes: denies blurry vision ENT: denies sore throat CVS: denies chest pain Respiratory: Denies dyspnea GI: no abdominal pain : denies dysuria MSK: denies neck pain Skin: improving erythema Neuro: denies specific motor weakness Physical Exam Vital Signs: Vital Signs: Last Vital Signs Temp 98.2 F 07/20/21 11:38 Pulse 82 07/20/21 11:38 Resp 16 07/20/21 11:38 BP 148/86 H 07/20/21 11:38 Pulse Ox 99 07/20/21 11:38 BMI result Body Mass Index 32.5 Const: Other: Constitutional : Alert, oriented, not in distress Neck : Normal inspection, Supple Cardiovascular : RRR, S1 S2, no lower extremity edema Respiratory : Good bilateral air entry, no crackles, wheezes or rhonchi Gastrointestinal: soft, lax, Normal bowel sounds, Non tender Skin : Warm, Dry, foot covered with dressing with no drainage noted, 4th toe gangrene Neurological : Alert & oriented x3, No focal deficit Objective Data Active Medications Acetaminophen (Acetaminophen 325 Mg Tablet) 650 mg PO ONCE PRN PRN Reason: Pain, Mild (Pain Scale 1-3) Atorvastatin Calcium (Atorvastatin Calcium 40 Mg Tablet) 40 mg PO DAILY [facility] Last Admin: 07/20/21 07:59 Dose: 40 mg Documented by: JOSH Carvedilol (Carvedilol 25 Mg Tablet) 25 mg PO BID [facility]; Protocol Last Admin: 07/20/21 07:59 Dose: 25 mg Documented by: JOSH Dextrose (Dextrose 50 % 25 Gm/50 Ml Vial) 25 gm IVPUSH Q15M PRN; Protocol PRN Reason: per Hypoglycemia Standing Ord. Fentanyl (Fentanyl Citrate/Pf 100 Mcg/2 Ml Vial) 25 mcg IVPUSH Q5M PRN; Protocol PRN Reason: Pain, Moderate (Pain Scale 4-6 Furosemide (Furosemide 40 Mg Tablet) 40 mg PO BID [facility]; Protocol Last Admin: 07/20/21 07:59 Dose: 40 mg Documented by: JOSH Glucose (Glucose Gel 15 Gm Gel..Gram.) 15 gm PO Q15M PRN; Protocol PRN Reason: per Hypoglycemia Standing Ord. Piperacillin Sod/Tazobactam (Sod 3.375 gm/ Sodium Chloride) 50 mls @ 100 mls/hr IV Q6H [facility] Last Infusion: 07/20/21 08:55 Dose: 0 mls/hr Documented by: JOSH Vancomycin HCl 1,000 mg/Vancomycin HCl 750 mg/ Sodium Chloride 535 mls @ 267.5 mls/hr IV Q24H [facility] Last Infusion: 07/19/21 23:07 Dose: 0 mls/hr Documented by: ODRISEstefanía Lactated Ringer's (Lr) 1,000 mls @ 100 mls/hr IVCONT .Q10H [facility] Insulin Human Lispro (Insulin Lispro 100 Unit/Ml 3 Ml Vial) 0 unit SUBCUT QIDACHS [facility]; Protocol Last Admin: 07/20/21 11:45 Dose: Not Given Documented by: JOSH Non-Admin Reason: No Insulin Coverage Lorazepam (Lorazepam 1 Mg Tablet) 1 mg PO TID PRN PRN Reason: Anxiety Ondansetron HCl (Ondansetron Hcl 4 Mg/2 Ml Vial) 4 mg IVPUSH ONCE PRN PRN Reason: Nausea and Vomiting Oxycodone HCl (Oxycodone Hcl Immed Release 5 Mg Tablet) 5 mg PO ONCE PRN PRN Reason: Pain, Severe (Pain Scale 7-10) Pharmacy Consult (Consult Rx Vancomycin Dosing) 1 each MISCELLANE DAILY PRN PRN Reason: Consult order Pharmacy Consult (Consult Rx Perform Med Rec) 1 each MISCELLANE ONCE PRN PRN Reason: Consult order Pharmacy Consult (Consult Rx Vancomycin Dosing) 1 each MISCELLANE DAILY PRN PRN Reason: Consult order Sacubitril/Valsartan (Sacubitril/Valsartan 1 Tab Tablet) 1 tab PO BID [facility]; Protocol Last Admin: 07/20/21 07:59 Dose: 1 tab Documented by: JOSH Sitagliptin Phosphate (Sitagliptin Phosphate 100 Mg Tablet) 100 mg PO DAILY [facility] Last Admin: 07/20/21 07:59 Dose: 100 mg Documented by: JOSH Sodium Chloride (0.9 % Sodium Chloride Flush 3 Ml Syringe) 3 ml IVFLUSH QSHIFT [facility] Last Admin: 07/20/21 08:01 Dose: 3 ml Documented by: JOSH Labs CBC & Chem 7: 07/20/21 05:35 07/20/21 05:35 Labs: Laboratory Results - last 24 hr 07/19/21 07/19/21 07/20/21 15:57 19:37 05:35 MCV 87.8 MCH 27.6 MCHC 31.4 RDW 15.8 Plt Count 239 MPV 9.8 Absolute Nucleated RBC 0.000 Nucleated RBC % (auto) 0.0 Anion Gap Estim Creat Clear Calc Estimated GFR POC Glucose 130 H 170 H Fasting Glucose Calcium 07/20/21 07/20/21 07/20/21 05:35 07:36 11:28 MCV MCH MCHC RDW Plt Count MPV Absolute Nucleated RBC Nucleated RBC % (auto) Anion Gap 10 L Estim Creat Clear Calc 107.8 Estimated GFR > 60 POC Glucose 129 H 141 H Fasting Glucose 104 H Calcium 8.7 Assessment and Plan (1) Osteomyelitis: Status: Acute (2) Dry gangrene: Status: Acute (3) Cellulitis of foot, left: Status: Acute Plan 71M? presented with worsening erythema of left dorsum of foot. ? Left foot diabetic/vascular dry gangrene 4th toe with cellulitis ?status post angioplasty last week arterial us negative ?continue statin xarelto held for surgery continue?vancomycin, Zosyn vascular surgery input appreciated,plan for amputation of 4th toe today ?cellulitis and possible osteomyelitis of left 1st toe with foreign body CT showing metallic foreign body, cellulitis, possible chronic OM no plan for surgical intervention ID appreciated, well require 6 weeks IV antibiotics after 4th toe amputation of daptomycin to place a PICC line tomorrow morning ?chronic systolic CHF ?continue carvedilol, Entresto,? furosemide ?diabetes ?holding metformin ?continue Januvia ?insulin sliding scale (patient not interested unless significantly hyperglycemic) monitor poc ?hypertension ?carvedilol,? valsartan (entresto) ?hyperlipidemia ?statin ?paroxysmal atrial fibrillation ?carvedilol and Xarelto (on hold for surgery) ?DVT prophylaxis-on Xarelto (on hold for surgery) ?full code reason for continued hospitalization: requiring iv abx for OM/cellulitis, plan for surgical amputation today, will need PICC line placement and discharge antibiotic, risk for decompensation to sepsis due to DM, vascular disease Quality Stroke Does the patient have a stroke diagnosis?: No VTE Prior VTE?: No VTE Risk Level:: Medical - moderate - high VTE Device Contraindication: Treatment Not Indicated VTE Drug Contraindication: N/A - Med Ordered
--- NOTE | 2021-07-20 13:43 | W.PM.OPN ---
Operative Note Operative Note Date of Service: 07/20/21 Narrative: Operative note by [facility] Preoperative diagnosis:Left diabetic foot ulcer Postoperative diagnosis:same Procedure:left fourth toe ray amputation Surgeon:Harshil Chung M.D. Tank Cleaning Supervisor:none Anesthesia:general Specimens:1 Drains:none Estimated blood loss:50 ml Indications:71 yo diabetic gentleman with nonhealing left fourth toe ulcer and gangerene. The patient has signed the informed consent after reviewing risks, complications, benefits, and alternatives previously discussed with the patient. The patient was given the opportunity to ask any additional questions or voice any concerns. All questions were answered to the patient's satisfaction. Procedure in detail:Patient was brought to the operating room prior to which a time-out was called for patient identification and site verification.? Left leg was prepped and draped in standard surgical fashion. ? A fishmouth incision was made over 4th toe. We went beyond the metatarsal head. Power saw was used to resect the fourth metatarsal bone. Devitalized tissue was removed with 15 blade. We closed deep tissue with 2-0 polysorb and superficial with 3-0 polysorb. Finally skin with 2-0 Nylon in mattress fasion and trisha. He was brought to recovery with stable vitals. This note is constructed using voice recognition software. While every effort has been made to ensure accuracy, barrel washer machine errors may have been included. Thank you for allowing me to participate in the care of your patient. Yours sincerely, Harshil Chung MD, FACS, R.P.V.I.
--- NOTE | 2021-07-20 15:13 | MHC.CM.PN ---
PATIENT CAN DC HOME ON 1 G ERTAPENEM QD. [facility] MADE AWARE. [facility] ALSO MADE AWARE OF PLAN
--- NOTE | 2021-07-20 15:56 | MHC.CM.PN ---
PATIENT TO RETURN HOME ON 1.75 G VANCO QD FOR 6 WEEKS. [facility] WILL BE IN TOMORROW FOR A TEACH. [facility] MADE AWARE OF PLANS
[2021-07-20] MEDS: Lactated Ringers 1,000 ML 100 ML IVCONT (16:01)
[2021-07-20 16:48] LABS: Glucose, Whole Blood 172 mg/dL (60-115)
[2021-07-20] MEDS: Insulin Lispro 100 UNIT/ML 3 ML VIAL SUBCUT ×2 (16:49→20:55)
[2021-07-20 19:41] LABS: Vancomycin Trough 13.9 mcg/mL (10.0-20.0)
--- NOTE | 2021-07-20 19:45 | HE.PHANOTE ---
pt trough 13.9, predicted auc is 432, continue same dose, next trough 07/23
[2021-07-20 20:45] LABS: Glucose, Whole Blood 247 mg/dL (60-115)
[2021-07-20] MEDS: vancomycin HCL 1,000 MG, vancomycin HCL 750 MG in 0.9 % Sodium Chloride 500 ML 267.5 MG IV (20:55)
[2021-07-21] VITALS: BP 137/72; PULSE 73; RESP 17; TEMP 36.5; O2SAT 98
[2021-07-21] MEDS: Piperacillin Sodium/Tazobactam 3.375 GM in 0.9 % Sodium Chloride 50 ML IV ×2 (02:16→07:45)
[2021-07-21 04:00] VITALS: BP 140/70; PULSE 80; RESP 17; TEMP 36.4; O2SAT 99
[2021-07-21] MEDS: Lactated Ringers 1,000 ML 100 ML IVCONT (04:43)
[2021-07-21 06:41] LABS: INTERNATIONAL NORM RATIO 1.5 (0.9-1.1); Prothrombin Time 16.8 SEC (9.9-13.0)
[2021-07-21 07:28] VITALS: BP 149/82; PULSE 81; RESP 18; TEMP 36.3; O2SAT 96
[2021-07-21 07:33] LABS: Glucose, Whole Blood 241 mg/dL (60-115)
[2021-07-21] MEDS: Insulin Lispro 100 UNIT/ML 3 ML VIAL SUBCUT ×2 (07:45→11:38)
[2021-07-21] MEDS: Sacubitril/Valsartan 24/26 1 TAB TABLET PO (07:45)
[2021-07-21] MEDS: Furosemide 40 MG TABLET PO (07:45)
[2021-07-21] MEDS: carvediloL 25 MG TABLET PO (07:46)
[2021-07-21] MEDS: Atorvastatin Calcium 40 MG TABLET PO (07:46)
[2021-07-21] MEDS: SITagliptin Phosphate 100 MG TABLET PO (07:46)
--- NOTE | 2021-07-21 11:16 | HO.VASCPN ---
Subjective Subjective Date of Service: 07/21/21 Patient reports: no new complaints and feels better Interval history: Patient seen and examined. No significant events over the past day. He is postop day 1 status post left 4th toe ray amputation due to dry gangrene. Pain is well controlled. Patient's is at bedside at time of examination. Physical Exam Vital Signs: Vital Signs: Last Vital Signs Temp 97.4 F 07/21/21 07:28 Pulse 81 07/21/21 07:28 Resp 18 07/21/21 07:28 BP 149/82 H 07/21/21 07:28 Pulse Ox 96 07/21/21 07:28 BMI result Body Mass Index 32.5 Const: General: cooperative, healthy appearing and no acute distress Orientation/consciousness: oriented to person, oriented to place and oriented to time HENMT: Head: Yes normal to inspection Neck: Carotids: no bruits Chest: Chest palpation & inspection: normal inspection of the chest Resp: Effort & Inspection: normal respiratory effort and able to speak in complete sentences Auscultation: clear to auscultation bilaterally Cardio: Rate: regular rate Heart sounds: S1 normal heart sound present and S2 normal heart sound present GI: Inspection: Yes normal to inspection Skin: General skin exam: no rashes or lesions noted Wounds: amputation site (Dressing changed incision healing well. Surrounding cellulitis) Neuro: General: oriented to person, oriented to place, oriented to time and CN's II-XI intact bilaterally Extrem: General: Yes normal to inspection, Yes full ROM and Yes no clubbing, cyanosis or edema Psych: Appearance: grossly normal and well kempt Speech and movement: Normal speech and movement present Affect: normal affect Progress Note: A&P Assessment and plan (1) Peripheral vascular disease: Status: Acute Assessment and Plan: Doing well status post left 4th toe amputation. Will need long-term antibiotics. Discussed offloading and local wound care with the patient and . He will follow up with us in approximately 2 weeks time for suture and staple removal. Thank you for allowing us to assist in his care. If there are any questions or concerns please do not hesitate to contact us. Fall Risk Details Current Medications: Current Medications Acetaminophen (Acetaminophen 325 Mg Tablet) 650 mg PO ONCE PRN PRN Reason: Pain, Mild (Pain Scale 1-3) Atorvastatin Calcium (Atorvastatin Calcium 40 Mg Tablet) 40 mg PO DAILY [place] Last Admin: 07/21/21 07:46 Dose: 40 mg Documented by: Carvedilol (Carvedilol 25 Mg Tablet) 25 mg PO BID [facility]; Protocol Last Admin: 07/21/21 07:46 Dose: 25 mg Documented by: Dextrose (Dextrose 50 % 25 Gm/50 Ml Vial) 25 gm IVPUSH Q15M PRN; Protocol PRN Reason: per Hypoglycemia Standing Ord. Fentanyl (Fentanyl Citrate/Pf 100 Mcg/2 Ml Vial) 25 mcg IVPUSH Q5M PRN; Protocol PRN Reason: Pain, Moderate (Pain Scale 4-6 Furosemide (Furosemide 40 Mg Tablet) 40 mg PO BID [facility]; Protocol Last Admin: 07/21/21 07:45 Dose: 40 mg Documented by: Glucose (Glucose Gel 15 Gm Gel..Gram.) 15 gm PO Q15M PRN; Protocol PRN Reason: per Hypoglycemia Standing Ord. Piperacillin Sod/Tazobactam (Sod 3.375 gm/ Sodium Chloride) 50 mls @ 100 mls/hr IV Q6H [facility] Last Infusion: 07/21/21 08:15 Dose: Infused Documented by: Vancomycin HCl 1,000 mg/Vancomycin HCl 750 mg/ Sodium Chloride 535 mls @ 267.5 mls/hr IV Q24H [facility] Last Infusion: 07/20/21 22:58 Dose: Infused Documented by: Lactated Ringer's (Lr) 1,000 mls @ 100 mls/hr IVCONT .Q10H [facility] Last Admin: 07/21/21 04:43 Dose: 100 mls/hr Documented by: Insulin Human Lispro (Insulin Lispro 100 Unit/Ml 3 Ml Vial) 0 unit SUBCUT QIDACHS [facility]; Protocol Last Admin: 07/21/21 07:45 Dose: 4 unit Documented by: Lorazepam (Lorazepam 1 Mg Tablet) 1 mg PO TID PRN PRN Reason: Anxiety Ondansetron HCl (Ondansetron Hcl 4 Mg/2 Ml Vial) 4 mg IVPUSH ONCE PRN PRN Reason: Nausea and Vomiting Oxycodone HCl (Oxycodone Hcl Immed Release 5 Mg Tablet) 5 mg PO ONCE PRN PRN Reason: Pain, Severe (Pain Scale 7-10) Pharmacy Consult (Consult Rx Vancomycin Dosing) 1 each MISCELLANE DAILY PRN PRN Reason: Consult order Pharmacy Consult (Consult Rx Perform Med Rec) 1 each MISCELLANE ONCE PRN PRN Reason: Consult order Pharmacy Consult (Consult Rx Vancomycin Dosing) 1 each MISCELLANE DAILY PRN PRN Reason: Consult order Sacubitril/Valsartan (Sacubitril/Valsartan 1 Tab Tablet) 1 tab PO BID [facility]; Protocol Last Admin: 07/21/21 07:45 Dose: 1 tab Documented by: Sitagliptin Phosphate (Sitagliptin Phosphate 100 Mg Tablet) 100 mg PO DAILY [facility] Last Admin: 07/21/21 07:46 Dose: 100 mg Documented by: Sodium Chloride (0.9 % Sodium Chloride Flush 3 Ml Syringe) 3 ml IVFLUSH QSHIFT [facility] Last Admin: 07/21/21 07:47 Dose: Not Given Documented by: Time Spent With Patient Time: Total time spent is greater than 50% in coordination of care (as documented) at patient's floor/unit and/or counseling patient: Time with patient: 15 - 24 minutes Procedures Date of Service Date of Service: 07/21/21 Quality Stroke Does the patient have a stroke diagnosis?: No VTE Prior VTE?: No VTE Risk Level:: Medical - moderate - high VTE Device Contraindication: Treatment Not Indicated VTE Drug Contraindication: N/A - Med Ordered
[2021-07-21 11:31] LABS: Glucose, Whole Blood 251 mg/dL (60-115)
--- NOTE | 2021-07-21 11:59 | PM.DS ---
DS: Providers Provider Date of Service: 07/21/21 Date of admission: 07/15/21 14:31 Primary care physician: Domenico Smith MD Consults: 07/15/21 14:24 Consult to General Surgery Routine Consulting Provider: Carson Calderon Reason for consultation: foreign body left first phalanx 07/15/21 14:26 Consult to Infectious Diseases Routine Consulting Provider: Shivani Ruiz Reason for consultation: OM 07/15/21 16:56 Consult to Vascular Surgery Routine Consulting Provider: Harshil Chung Reason for consultation: pvd, necrotic toe, OM DS: Diagnosis Discharge Diagnosis (1) Peripheral vascular disease: Status: Acute (2) Osteomyelitis: Status: Acute (3) Dry gangrene: Status: Acute (4) Foot osteomyelitis, left: Status: Acute (5) Cellulitis of foot, left: Status: Acute DS: Summary Hospital Course Hospital Course: Admission note HPI 71M with pmh PVD with left 4th toe dry gangrene s/p angioplasty 5 days ptp, presented with increasing area of erythema of left foot dorsum. ? Patient's left foot has been swollen erythematous for about? 1 month, he has had dry gangrene of the 4th phalanx for about 2 weeks,? he is following vascular and recently had an angioplasty.? Patient is coming to the ED today due to increased area of the erythema over his left dorsum, he reports that it is less erythematous overall but ? The area has spread to include medial side of his 5th phalanx. ? Patient denies any fevers or chills.? In ED x-ray showed soft tissue swelling of the distal aspect of the 1st phalanx with a linear possible metallic foreign body concerning for cellulitis and osteomyelitis, patient's erythema does not? extend to this area, it does not remember stepping on any metallic body, however, he does have some neuropathy. Hospital course the patient was admitted to the hospital for treatment of cellulitis in his left lower extremity. Images were consistent with chronic osteomyelitis in the big toe and dry gangrene in the left 4th toe. He was started on IV antibiotic of vancomycin and Zosyn and evaluated by vascular surgery Infectious Disease specialist with recommendation for amputation of the 4th toe. The patient went under surgery at the 4th toe was amputated. Id recommended treatment of 6 weeks of IV antibiotics of vancomycin for the chronic osteomyelitis diabetic toe. A PICC line was placed and patient will be discharged home with home VNA for IV antibiotics of vancomycin until August 19. VNA to do weekly Trough, ESR, BUN\CREAT Time Spent with Patient Time attestation: Total time spent providing and/or coordinating discharge services: Discharge coordination time: Greater than 30 minutes Quality: Stroke Does the patient have a stroke diagnosis?: No Physical Exam Vital Signs: Vital Signs: Last Vital Signs Temp 97.4 F 07/21/21 07:28 Pulse 81 07/21/21 07:28 Resp 18 07/21/21 07:28 BP 149/82 H 07/21/21 07:28 Pulse Ox 96 07/21/21 07:28 BMI result Body Mass Index 32.5 Const: Other: Constitutional : Alert, oriented, not in distress Neck : Normal inspection, Supple Cardiovascular : RRR, S1 S2, no lower extremity edema Respiratory : Good bilateral air entry, no crackles, wheezes or rhonchi Gastrointestinal: soft, lax, Normal bowel sounds, Non tender Skin : Warm, Dry, foot covered with dressing with no drainage noted, Surgery site clean with no bleeding Neurological : Alert & oriented x3, No focal deficit DS: Data Data Completed and Pending Pending studies at discharge: Pending at discharge 07/20/21 13:00 Surgical [PTH] Routine Labs on day of discharge: Laboratory Results - last 24 hr 07/20/21 07/20/21 07/20/21 16:43 19:02 20:34 PT INR POC Glucose 172 H 247 H Vancomycin Trough 13.9 07/21/21 07/21/21 07/21/21 05:46 07:26 11:23 PT 16.8 H INR 1.5 H POC Glucose 241 H 251 H Vancomycin Trough Discharge Plan Discharge Patient Disposition: Home Health Service Discharge Diagnosis: chronic osteomyelitis of big toe Dry gangrene of 4th toe Amputation Referrals: Sindy JEWELLA [Outside] - 1 Week Domenico Smith MD [Primary Care Provider] - 1 Week Musa Navarrete MD [Physician] - 10 days (Left foot osteoarthritis) Harshil Chung MD [Physician] - 2 Weeks Yuri West DPM [Physician] - 10 days (Left foot pain, arthritis) Discharge Medications: New vancomycin 1,000 mg recon soln 1,750 mg IV .Q24 Qty: 30 0RF Rx Instructions: 1,750 mg intravenously Continued furosemide 40 mg tablet 40 mg PO BID 0RF atorvastatin 40 mg tablet 40 mg PO DAILY 0RF carvedilol 25 mg tablet 25 mg PO BID 0RF lorazepam 0.5 mg tablet 1 - 2 tab PO TID PRN (Reason: Anxiety) 0RF metformin 500 mg tablet extended release 24 hr 4 tab PO DAILY 0RF Label Comments: CURRENTLY HELD DUE TO RECENT ANGIOGRAM PER PATIENT Januvia 100 mg tablet 1 tab PO DAILY 0RF Xarelto 20 mg tablet 1 tab PO BEDTIME 0RF Culturelle 10 billion cell Capsule 1 cap PO DAILY 0RF Entresto 24-26 mg Tablet 1 tab PO BID 0RF Discharge Orders: Discharge Order (Routine); Ordered 07/21/21 Ordered By: Regine Patel Diet: advance to usual diet Activity on Discharge: As tolerated Stand Alone Forms: Patient Portal Discharge page Care Plan Goals: Read below Health Concerns: Read below Plan of Treatment: Read below Assessment: Wound care upon discharge: xeroform, 4x4 and Kerlix wrap to be changed daily. Please call Dr. Chung at [phone] for 2 week follow up for suture and staple removal Discharge Date/Time: 07/21/21 17:52
--- NOTE | 2021-07-21 12:56 | HO.POSTANES ---
Post Anesthesia Evaluation Post Anesthesia Evaluation Vital Signs: Vital Signs Temp Pulse Resp BP Pulse Ox 07/21/21 07:28 97.4 F 81 18 149/82 H 96 07/21/21 04:00 97.6 F 80 17 140/70 H 99 Anesthesia: General Mental Status: Awake Pain Control: Satisfactory Nausea/Vomiting: None Hydration: Adequate Anesthesia-Related Issues: No Anes. Related Issues
--- NOTE | 2021-07-21 14:42 | P.PICC_ITS ---
PICC Line Insertion NPICC Diagnosis: OSTEOMYELITIS Indication: DETENTION IV ANTIBIOTICS Pertinent Labs: REVIEWED Technique: Following informed consent including risks, benefits and alternatives and using sterile technique including cap and mask, sterile gown, glove and drape, the RIGHT arm was prepped and draped in the usual sterile fashion of full barrier technique with CHG. Following completion of [employer] Protocol the skin and soft tissues were anesthetized with 1% Lidocaine plain. Using ultrasound guidance, BASILIC vein access was obtained IN SINGLE ATTEMPT BY THIS RN. Over an 0.018 wire through peel-away sheath, a DUAL-LUMEN, PASV, 5-CZECH PICC line was positioned. Catheter length is 41 CM internal length, 0 CM external length, for a total trimmed length of 41 CM. The procedure was performed in S-272. Tip verification was performed by POST PICC LINE INSERTION XRAY D/T UNDERLYING AFIB, AND REVIEWED BY DR. WARD. PER DR. WARD, Tip located in SVC AND READY FOR USE. Ultrasound was used to document vein patency and for needle entry. A formal ultrasound picture was recorded. Vascular Retail Area Manager has released the line for use and it is currently dressed with a StatLock, Tegaderm, and CHG disc. Verification has been performed for blood return and line patency. Arm Circumference: 34 CM Equipment: [employer] POWERPICC SOLO Catheter Type: DUAL-LUMEN, 5-CZECH, PASV Lot #: [id number]
--- NOTE | 2021-07-21 15:03 | MHC.CM.PN ---
PATIENT IS DC TODAY WITH [facility] FOR 6 WEEKS IV VANCO. PATIENT, RN, AND UNIT AWARE OF PLAN. (IN ROOM) TO PROVIDE TRANSPORT HOME IMM 07/21 IN CHART
[2021-07-21] MEDS: vancomycin HCL 1,000 MG, vancomycin HCL 750 MG in 0.9 % Sodium Chloride 500 ML 267.5 MG IV (15:30)
[2021-07-21] MEDS: 0.9 % Sodium Chloride Flush 3 ML SYRINGE IVFLUSH ×2 (15:37)
== END 2021-07-21 17:52 | disposition home health service (06) | DRG 256 ==
LOC: HO.ED 13:33 → HO.EDOVER 14:41 → HO.S3 15:54
PROVIDERS: Physician Assistant Medical; Surgery Vascular Surgery; Admitting Provider Internal Medicine; Emergency Provider Emergency Medicine; PCP Internal Medicine; Visit Provider Student in an Organized Health Care Education/Training Program
PROC: 0Y6W0Z0 Detachment at Left 4th Toe, Complete, Open Approach (ICD-10-PCS; principal; 2021-07-20 12:50)
DX: E11.52 Type 2 diabetes mellitus with diabetic peripheral angiopathy with gangrene (principal); I96 Gangrene, not elsewhere classified; L03.116 Cellulitis of left lower limb; I50.22 Chronic systolic (congestive) heart failure; M86.672 Other chronic osteomyelitis, left ankle and foot; L03.115 Cellulitis of right lower limb; E11.69 Type 2 diabetes mellitus with other specified complication; E78.5 Hyperlipidemia, unspecified; M79.5 Residual foreign body in soft tissue; I87.322 Chronic venous hypertension (idiopathic) with inflammation of left lower extremity; I48.0 Paroxysmal atrial fibrillation; E11.40 Type 2 diabetes mellitus with diabetic neuropathy, unspecified; I11.0 Hypertensive heart disease with heart failure; Z20.822 Contact with and (suspected) exposure to COVID-19; Z79.84 Long term (current) use of oral hypoglycemic drugs; Z79.01 Long term (current) use of anticoagulants; Z79.899 Other long term (current) drug therapy
CPT/HCPCS: 36415; 36573; 71045; 73630; 73701; 80048; 80076; 80202; 82565; 82947; 83605; 85025; 85027; 85610; 87040; 87635; 88305; 88311; 93005; 93925; 96365; 96366; 96367; 99285; C1751; J1100; J2250; J2405; J2543; J3010; J3370; Q9967

== ENCOUNTER 2021-07-26 13:55 | Outpatient (REF) | payer MEDICARE, SELFPAY ==
[2021-07-26 16:44] LABS: Blood Urea Nitrogen 24 mg/dL (9-16); Estimated Glomerular Filt Rate > 60
[2021-07-26 16:49] LABS: Vancomycin Trough 10.7 mcg/mL (10.0-20.0)
== END 2021-07-26 13:56 | disposition home or self-care (01) ==
LOC: HO.HVNA 13:55
PROVIDERS: Visit Provider Internal Medicine
DX: M86.9 Osteomyelitis, unspecified (principal)
CPT/HCPCS: 36415; 80202; 82565; 84520

== ENCOUNTER 2021-08-01 12:11 | Outpatient (REF) | payer MEDICARE, SELFPAY ==
[2021-08-01 14:11] LABS: Blood Urea Nitrogen 22 mg/dL (9-16); Estimated Glomerular Filt Rate > 60
[2021-08-01 14:33] LABS: Vancomycin Trough 19.8 mcg/mL (10.0-20.0)
[2021-08-01 14:40] LABS: Erythrocyte Sedimentation Rate 49 MM/HR (0-15)
== END 2021-08-01 12:12 | disposition home or self-care (01) ==
LOC: HO.HVNA 12:11
PROVIDERS: Visit Provider Internal Medicine
DX: M86.9 Osteomyelitis, unspecified (principal); Z79.899 Other long term (current) drug therapy
CPT/HCPCS: 36415; 80202; 82565; 84520; 85652

== ENCOUNTER → 2021-08-04 10:45 | Outpatient (BNVA) | payer MEDICARE, SELFPAY | PROVIDERS: PCP Internal Medicine; Visit Provider Internal Medicine | DX: E11.69 Type 2 diabetes mellitus with other specified complication (principal); M86.9 Osteomyelitis, unspecified | CPT/HCPCS: 99212 ==

== ENCOUNTER 2021-08-08 14:58 | Outpatient (REF) | payer MEDICARE, SELFPAY ==
[2021-08-08 15:40] LABS: Blood Urea Nitrogen 29 mg/dL (9-16); Estimated Glomerular Filt Rate > 60
[2021-08-08 15:49] LABS: Erythrocyte Sedimentation Rate 39 MM/HR (0-15)
[2021-08-08 15:51] LABS: Vancomycin Trough 16.9 mcg/mL (10.0-20.0)
== END 2021-08-08 14:59 | disposition home or self-care (01) ==
LOC: HO.HVNA 14:58
PROVIDERS: Visit Provider Internal Medicine
DX: Z79.899 Other long term (current) drug therapy (principal)
CPT/HCPCS: 36415; 80202; 82565; 84520; 85652

== ENCOUNTER → 2021-08-10 08:53 | Outpatient (BNVA) | payer MEDICARE, SELFPAY | PROVIDERS: PCP Internal Medicine; Visit Provider Surgery Vascular Surgery | DX: I73.9 Peripheral vascular disease, unspecified (principal) | CPT/HCPCS: 99212 ==

== ENCOUNTER 2021-08-14 08:01 | Outpatient (RCR) | payer MEDICARE, SELFPAY | END 2021-10-12 08:06 | disposition home or self-care (01) | LOC: HO.WCC 08:01 | PROVIDERS: PCP Internal Medicine; Visit Provider Physician Assistant | DX: E11.621 Type 2 diabetes mellitus with foot ulcer (principal); L97.522 Non-pressure chronic ulcer of other part of left foot with fat layer exposed; T87.81 Dehiscence of amputation stump; E11.40 Type 2 diabetes mellitus with diabetic neuropathy, unspecified; E11.65 Type 2 diabetes mellitus with hyperglycemia; I10 Essential (primary) hypertension; L84 Corns and callosities; I48.91 Unspecified atrial fibrillation; Z89.422 Acquired absence of other left toe(s); Z79.2 Long term (current) use of antibiotics | CPT/HCPCS: 11042; 11043; 11750; 15275; 87071; 87073; 87205; 97605; Q4187 ==

== ENCOUNTER 2021-08-16 14:24 | Outpatient (REF) | payer MEDICARE, SELFPAY ==
[2021-08-16 16:40] LABS: MANUAL DIFF FLAG NO
[2021-08-16 16:44] LABS: Basophils Absolute Auto 0.1 X10*3/uL (0.0-0.2); Basophils Percent Auto 0.8 % (0-2); Eosinophils Absolute Auto 0.2 X10*3/uL (0.0-0.4); Eosinophils Percent Auto 3.8 % (0-4); Hematocrit 36.1 % (42.0-52.0); Hemoglobin 11.6 g/dl (14.0-18.0); Imm Gran Abs Auto 0.03 X10*3/uL (0.00-0.03); Imm Gran Pct Auto 0.5 % (0.0-0.4); Lymphocytes Absolute Auto 0.9 X10*3/uL (1.2-4.9); Lymphocytes Percent Auto 14.8 % (20-40); Mean Corpuscular HGB Conc 32.1 g/dl (31.0-36.0); Mean Corpuscular Hemoglobin 27.6 pg (27.0-33.0); Mean Corpuscular Volume 85.7 fL (80.0-98.0); Mean Platelet Volume 11.4 fL (9.4-12.4); Monocytes Absolute Auto 0.5 X10*3/uL (0.1-1.2); Monocytes Percent Auto 8.8 % (2-11); NRBC Pct Auto 0.3 /100WBC (0.0-0.2); Neutrophils Absolute Auto 4.3 x10*3/uL (2.0-8.3); Neutrophils Percent Auto 71.3 % (45-73); Platelet Count 145 X10*3/uL (160-400); Red Blood Count 4.21 X10*6/uL (4.60-5.80); Red Cell Distribution Width 17.5 % (11.0-16.0)
[2021-08-16 17:05] LABS: Estimated Average Glucose 134 mg/dL; Hemoglobin A1c % 6.3 %
[2021-08-16 17:20] LABS: Anion Gap 16 (12-20); Blood Urea Nitrogen 27 mg/dL (9-16); C Reactive Protein 0.63 mg/dL (< or = 0.50); Calcium 9.6 mg/dL (8.4-10.2); Carbon Dioxide 22 mmol/L (22-29); Chloride 102 mmol/L (96-108); Estimated Glomerular Filt Rate > 60; Glucose Random 120 mg/dL (60-115); Potassium 5.2 mmol/L (3.3-5.1); Sodium 135 mmol/L (135-145)
[2021-08-16 18:10] LABS: Erythrocyte Sedimentation Rate 44 MM/HR (0-15)
== END 2021-08-16 14:25 | disposition home or self-care (01) ==
LOC: HO.HMGCLNP 14:24
PROVIDERS: PCP Internal Medicine; Visit Provider Physician Assistant
DX: T14.8XXA Other injury of unspecified body region, initial encounter (principal); X58.XXXA Exposure to other specified factors, initial encounter; Y93.9 Activity, unspecified; Y92.9 Unspecified place or not applicable; Y99.9 Unspecified external cause status; Z51.81 Encounter for therapeutic drug level monitoring; Z79.899 Other long term (current) drug therapy
CPT/HCPCS: 80048; 80202; 83036; 84134; 85025; 85652; 86140

== ENCOUNTER → 2021-08-22 09:39 | Outpatient (BNVA) | payer MEDICARE, SELFPAY | PROVIDERS: Visit Provider Surgery Vascular Surgery | DX: T81.89XA Other complications of procedures, not elsewhere classified, initial encounter (principal); I73.9 Peripheral vascular disease, unspecified | CPT/HCPCS: 99212 ==

== ENCOUNTER 2021-09-22 11:39 | Emergency (ER) | payer MEDICARE, SELFPAY ==
--- NOTE | ~2021-09-22 | XR_ITS ---
EXAMINATION: XR FOOT, LEFT CLINICAL INFORMATION: History of osteopenia. COMPARISON: None TECHNIQUE: AP, lateral, and oblique views of the left foot. FINDINGS: There is amputation of the left 4th metatarsal beyond the mid segment. There is no periosteal thickening of the stump on the metatarsal following amputation. There is a likely small nondisplaced fracture of the proximal segment of the mid phalanx 5th digit. There is a small radiopaque foreign body/pin along the lateral aspect of distal 5th great toe. Mild dorsal intertarsal spurring is seen. There is a moderate size calcaneal heel enthesophyte. Moderate dorsal distal foot soft tissues swelling is seen. XR/XR foot LT min 3V IMPRESSION: Amputation of left 4th mid metatarsal with no periosteal thickening to suspect osteomyelitis. There is a radiopaque foreign body, a small linear pin along the medial aspect of the great toe. Mild intertarsal dorsal spurring and [id number] calcaneal heel enthesophyte.
[2021-09-22 11:47] VITALS: BP 140/71; PULSE 83; RESP 18; O2SAT 99; BMI 31.4
[2021-09-22 12:12] LABS: MANUAL DIFF FLAG NO
[2021-09-22 12:14] LABS: Basophils Percent Auto 0.4 % (0-2); Eosinophils Absolute Auto 0.1 X10*3/uL (0.0-0.4); Hematocrit 34.9 % (42.0-52.0); Hemoglobin 11.5 g/dl (14.0-18.0); Imm Gran Abs Auto 0.03 X10*3/uL (0.00-0.03); Imm Gran Pct Auto 0.3 % (0.0-0.4); Lymphocytes Absolute Auto 1.1 X10*3/uL (1.2-4.9); Lymphocytes Percent Auto 11.7 % (20-40); Mean Corpuscular Hemoglobin 28.5 pg (27.0-33.0); Mean Corpuscular Volume 86.4 fL (80.0-98.0); Mean Platelet Volume 9.1 fL (9.4-12.4); Monocytes Absolute Auto 0.7 X10*3/uL (0.1-1.2); Monocytes Percent Auto 7.8 % (2-11); Neutrophils Absolute Auto 7.3 x10*3/uL (2.0-8.3); Neutrophils Percent Auto 78.8 % (45-73); Platelet Count 188 X10*3/uL (160-400); Red Blood Count 4.04 X10*6/uL (4.60-5.80); Red Cell Distribution Width 17.2 % (11.0-16.0); White Blood Count 9.3 X10*3/uL (4.8-10.8)
[2021-09-22 12:23] LABS: Lactic Acid 1.4 mmol/L (0.5-2.0)
[2021-09-22 12:48] LABS: Anion Gap 13 (12-20); Blood Urea Nitrogen 34 mg/dL (9-16); Calcium 9.9 mg/dL (8.4-10.2); Carbon Dioxide 24 mmol/L (22-29); Chloride 101 mmol/L (96-108); Creatinine Clr Calc Pharmacy 72.6; Estimated Glomerular Filt Rate 56; Glucose Random 134 mg/dL (60-115); Potassium 5.2 mmol/L (3.3-5.1); Sodium 133 mmol/L (135-145)
[2021-09-23 04:00] VITALS: BP 164/118; PULSE 85; RESP 18; TEMP 36.9; O2SAT 97
== END 2021-09-23 05:01 | disposition left against medical advice (07) ==
PROVIDERS: Emergency Provider Emergency Medicine; PCP Internal Medicine
DX: M79.89 Other specified soft tissue disorders (principal); Z89.422 Acquired absence of other left toe(s)
CPT/HCPCS: 36415; 73630; 80048; 83605; 85025; 87040; 99282; 99283

== ENCOUNTER 2021-09-23 07:36 | Emergency (ER) | payer MEDICARE, SELFPAY ==
[2021-09-23 09:09] VITALS: BP 121/70; PULSE 71; RESP 18; TEMP 36.6; O2SAT 99; BMI 31.4
--- NOTE | 2021-09-23 11:53 | ED.WOUNDLAC ---
HPI - Wound/Laceration General Chief Complaint: Skin/Abscess/Foreign Body Stated Complaint: 4th toe l foot issue Time Seen by Provider: 09/23/21 11:19 Source: patient Mode of arrival: ambulatory Limitations: no limitations History of Present Illness HPI narrative: Patient presents to the emergency department for evaluation of a chronic wound to the left foot at the amputation site. Reports that yesterday he was advised by his visiting nurse to come to the emergency department as there was concern for worsening of infection due to odor coming from the wound. He states that he came here yesterday had blood work and an x-ray done from the waiting room but left due to a prolonged wait time. He denies any worsening of pain swelling or redness to the site, denies fevers, chills, chest pain, shortness of breath, inability to walk, numbness or tingling. He is wearing an offloading shoe to the left foot. Reports he is being followed by his vascular doctor as well as the wound clinic. Onset (ago): month(s) Related Data Home Medications Medication Instructions Recorded Confirmed Lactobacillus rhamnosus GG 10 1 cap PO DAILY 07/15/21 07/15/21 billion cell capsule (Culturelle) atorvastatin 40 mg tablet 40 mg PO DAILY 07/15/21 07/15/21 carvedilol 25 mg tablet 25 mg PO BID 07/15/21 07/15/21 furosemide 40 mg tablet 40 mg PO BID 07/15/21 07/15/21 lorazepam 0.5 mg tablet 1 - 2 tab PO TID PRN 07/15/21 07/15/21 metformin 500 mg tablet,extended 4 tab PO DAILY 07/15/21 07/15/21 release 24 hr rivaroxaban 20 mg tablet (Xarelto) 1 tab PO BEDTIME 07/15/21 07/15/21 sacubitril 24 mg-valsartan 26 mg 1 tab PO BID 07/15/21 07/15/21 tablet (Entresto) sitagliptin 100 mg tablet (Januvia) 1 tab PO DAILY 07/15/21 07/15/21 lisinopril 20 mg tablet 20 mg PO DAILY 08/04/21 Previous Rx's Medication Instructions Recorded vancomycin 1,000 mg intravenous 1,750 mg IV .Q24 #30 ea 07/21/21 injection doxycycline hyclate 100 mg capsule 100 mg PO BID 30 Days #60 cap 08/04/21 Allergies Allergy/AdvReac Type Severity Reaction Status Date / Time No Known Allergies Allergy Verified 09/23/21 09:04 Review of Systems Review of Systems: Constitutional: No weight loss, fever, chills, weakness or fatigue. Skin: No rash or itching. Positive wound. Cardiovascular: No chest pain, chest pressure or chest discomfort. No palpitations or pedal edema. Respiratory: No shortness of breath, cough or sputum production. Gastrointestinal: No nausea, vomiting or diarrhea. No abdominal pain Genitourinary: No burning micturition. No urinary frequency Musculoskeletal: No muscle pain, back pain, joint pain or stiffness. Yes all other systems are reviewed and are negative PMFSH Past Medical History Attestation statement: The following information was validated with the patient. Source: old records reviewed Medical History Chronic systolic (congestive) heart failure Diabetes mellitus Dry gangrene HLD (hyperlipidemia) HTN (hypertension) Osteomyelitis Paroxysmal atrial fibrillation Peripheral vascular disease Traumatic subdural hematoma Surgical History Amputated toe of left foot (07/20/21) H/O angioplasty Family History Family History Father No problems noted. Social History Social History Household Members: Spouse Housing: House Do you presently have visiting nurse or other home services: No Alcohol intake: former Year quit: 1999 Patient Tobacco Use Status: Never used Tobacco Second Hand Smoke Exposure: No Advance Directives: Yes Advance Directives Information Provided: Yes Advance Directives on File: No Advance Directives Date on File: 07/15/21 service: No Current occupational status: retired Physical Exam Vital Signs: Vital Signs: Last Vital Signs Temp 97.9 F 09/23/21 09:09 Pulse 71 09/23/21 09:09 Resp 18 09/23/21 09:09 BP 121/70 09/23/21 09:09 Pulse Ox 99 09/23/21 09:09 BMI result Body Mass Index 31.4 Vital signs have been reviewed as normal and appeared to be correct. Blood pressure normal.? Heart rate normal.? Respiration rate normal. Temperature normal.? Oxygen saturation normal. Appearance: Alert.?Oriented to person, place and time. No acute distress.?Normal affect. Eyes: Pupils equal, round and reactive to light.? ENT: Pharynx normal.?? Neck: Normal inspection.? Neck supple.?? CVS: Heart sounds normal. Normal heart rate and rhythm.? Pulses normal.?? Respiratory: No respiratory distress.? Lung sounds clear to auscultation bilaterally?? Abdomen: Soft and non-tender. Normoactive bowel sounds. No pulsatile mass.?? Skin: Skin warm and dry.? Normal skin color.? Normal skin turgor.?? Extremities: No lower extremity edema.? No calf ttp? Neuro: Moves all extremities spontaneously. Sensation intact bilaterally. CN II-XII intact. No focal neuro deficits. Ambulates with normal steady gait. Course Course Course Narrative: Patient is a 71-year-old male with a history of CHF, diabetes mellitus, dry gangrene, hyperlipidemia, hypertension, osteomyelitis, paroxysmal atrial fibrillation, peripheral vascular disease. He presents emergency department today for evaluation of left foot wound. reports July 2021 he underwent endovascular surgery with Dr. Mejia due to occlusive disease of the left lower extremity. 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 He has been followed by the [facility] for the nonhealing wound, has completed a course of IV antibiotics vancomycin on 08/18/2021, and is currently taking doxycycline 100 mg p.o. b.i.d.. Previously had a wound VAC to the left foot but this was removed 1 week ago. He reports that the visiting nurse has been concerned over the last couple visits that the redness, drainage, and odor has become increasingly worse. Yesterday the DNA contacted the wound center and patient was advised to come to the emergency department, he ultimately left yesterday without being seen due to the wait time. Patient has an appointment with his vascular doctor Jackie in 2 days, has a follow-up appointment at the Wound Center in 3 days. Yesterday, CBC revealed no leukocytosis, normocytic anemia consistent with prior labs, overall unremarkable BMP, and normal lactic acid, blood cultures were sent and are pending. X-ray imaging reveals amputation of the 4th mid metatarsal with no periosteal thickening to suspect osteomyelitis. 09/18/2021 had anaerobic culture from the wound obtained, no anaerobes were isolated on culture. Discussed plan today with patient, will obtain repeat CBC, ESR, CRP, and lactic acid, if no significant abnormalities are detected patient was likely to be discharged home, with outpatient follow-up with Wound Center in 3 days. Reevaluation(s) Reevaluation #1: Repeat CBC reveals no leukocytosis, ESR elevated at 58, CRP 2.32, lactic acid normal. Hemodynamically stable well-appearing, remains afebrile, without tachycardia, normotensive. Discussed with patient plan of care for discharge home, outpatient follow-up with vascular surgeon in 2 days, outpatient follow-up with Wound Center in 3 days, discussed reasons to return back to the emergency department, patient to continue taking doxycycline as currently prescribed, all questions were answered, and patient discharged home in stable condition. Time: 13:38 [facility] - Wound/Laceration Medical Records Attestation: I reviewed the patient's medical records. Lab Data Attestation: I reviewed the patient's lab results. Result diagrams: 09/23/21 12:31 Labs: Lab Results 09/23/21 09/23/21 09/23/21 Range/Units 12:31 12:31 12:31 WBC 8.1 (4.8-10.8) X10*3/uL RBC 3.81 L (4.60-5.80) X10*6/uL Hgb 11.1 L (14.0-18.0) g/dl Hct 33.4 L (42.0-52.0) % MCV 87.7 (80.0-98.0) fL MCH 29.1 (27.0-33.0) pg MCHC 33.2 (31.0-36.0) g/dl RDW 17.2 H (11.0-16.0) % Plt Count 172 (160-400) X10*3/uL MPV 9.4 (9.4-12.4) fL Immature Gran % (Auto) 0.2 (0.0-0.4) % Neut % (Auto) 79.7 H (45-73) % Lymph % (Auto) 11.5 L (20-40) % [place] % (Auto) 7.2 (2-11) % Eos % (Auto) 1.0 (0-4) % Baso % (Auto) 0.4 (0-2) % Lymph # (Auto) 0.9 L (1.2-4.9) X10*3/uL [place] # (Auto) 0.6 (0.1-1.2) X10*3/uL Eos # (Auto) 0.1 (0.0-0.4) X10*3/uL Baso # (Auto) 0.0 (0.0-0.2) X10*3/uL Abs Immat Gran (auto) 0.02 (0.00-0.03) X10*3/uL Absolute Neuts (auto) 6.4 (2.0-8.3) x10*3/uL Absolute Nucleated RBC 0.000 (0.0-0.012) X10*3/uL Nucleated RBC % (auto) 0.0 (0.0-0.2) /100WBC ESR 58 H (0-15) MM/HR Lactic Acid (0.5-2.0) mmol/L C-Reactive Protein 2.32 H (< or = 0.50) mg/dL 09/23/21 Range/Units 12:31 WBC (4.8-10.8) X10*3/uL RBC (4.60-5.80) X10*6/uL Hgb (14.0-18.0) g/dl Hct (42.0-52.0) % MCV (80.0-98.0) fL MCH (27.0-33.0) pg MCHC (31.0-36.0) g/dl RDW (11.0-16.0) % Plt Count (160-400) X10*3/uL MPV (9.4-12.4) fL Immature Gran % (Auto) (0.0-0.4) % Neut % (Auto) (45-73) % Lymph % (Auto) (20-40) % [place] % (Auto) (2-11) % Eos % (Auto) (0-4) % Baso % (Auto) (0-2) % Lymph # (Auto) (1.2-4.9) X10*3/uL [place] # (Auto) (0.1-1.2) X10*3/uL Eos # (Auto) (0.0-0.4) X10*3/uL Baso # (Auto) (0.0-0.2) X10*3/uL Abs Immat Gran (auto) (0.00-0.03) X10*3/uL Absolute Neuts (auto) (2.0-8.3) x10*3/uL Absolute Nucleated RBC (0.0-0.012) X10*3/uL Nucleated RBC % (auto) (0.0-0.2) /100WBC ESR (0-15) MM/HR Lactic Acid 1.2 (0.5-2.0) mmol/L C-Reactive Protein (< or = 0.50) mg/dL Imaging Data XR left foot 09/22/2021: Radiologist's impression: XR/XR foot LT min 3V IMPRESSION: Amputation of left 4th mid metatarsal with no periosteal thickening to suspect osteomyelitis. There is a radiopaque foreign body, a small linear pin along the medial aspect of the great toe. ? Mild intertarsal dorsal spurring and? [id number] calcaneal heel enthesophyte. Discharge Plan Discharge Clinical Impression: PAD (peripheral artery disease) Patient Disposition: Home, Self-Care Instructions: Peripheral Artery Disease (ED) Additional Instructions: Continue taking doxycycline as prescribed and follow-up with the vascular surgeon and wound center as scheduled this week. Return to the emergency department with any new or worsening symptoms or concerns. Prescriptions: No Action furosemide 40 mg tablet 40 mg PO BID 0RF atorvastatin 40 mg tablet 40 mg PO DAILY 0RF carvedilol 25 mg tablet 25 mg PO BID 0RF lorazepam 0.5 mg tablet 1 - 2 tab PO TID PRN (Reason: Anxiety) 0RF metformin 500 mg tablet extended release 24 hr 4 tab PO DAILY 0RF Label Comments: CURRENTLY HELD DUE TO RECENT ANGIOGRAM PER PATIENT Januvia 100 mg tablet 1 tab PO DAILY 0RF Xarelto 20 mg tablet 1 tab PO BEDTIME 0RF Culturelle 10 billion cell Capsule 1 cap PO DAILY 0RF Entresto 24-26 mg Tablet 1 tab PO BID 0RF vancomycin 1,000 mg recon soln 1,750 mg IV .Q24 Qty: 30 0RF Rx Instructions: 1,750 mg intravenously lisinopril 20 mg tablet 20 mg PO DAILY 0RF doxycycline hyclate 100 mg capsule 100 mg PO BID 30 Days Qty: 60 1RF Interventions: ED Discharge Assessment Last Done: 09/23/21 14:28 Discharge Date/Time: 09/23/21 14:29
[2021-09-23 12:36] LABS: MANUAL DIFF FLAG NO
[2021-09-23 12:38] LABS: Basophils Percent Auto 0.4 % (0-2); Eosinophils Absolute Auto 0.1 X10*3/uL (0.0-0.4); Hematocrit 33.4 % (42.0-52.0); Hemoglobin 11.1 g/dl (14.0-18.0); Imm Gran Abs Auto 0.02 X10*3/uL (0.00-0.03); Imm Gran Pct Auto 0.2 % (0.0-0.4); Lymphocytes Absolute Auto 0.9 X10*3/uL (1.2-4.9); Lymphocytes Percent Auto 11.5 % (20-40); Mean Corpuscular HGB Conc 33.2 g/dl (31.0-36.0); Mean Corpuscular Hemoglobin 29.1 pg (27.0-33.0); Mean Corpuscular Volume 87.7 fL (80.0-98.0); Mean Platelet Volume 9.4 fL (9.4-12.4); Monocytes Absolute Auto 0.6 X10*3/uL (0.1-1.2); Monocytes Percent Auto 7.2 % (2-11); Neutrophils Absolute Auto 6.4 x10*3/uL (2.0-8.3); Neutrophils Percent Auto 79.7 % (45-73); Platelet Count 172 X10*3/uL (160-400); Red Blood Count 3.81 X10*6/uL (4.60-5.80); Red Cell Distribution Width 17.2 % (11.0-16.0); White Blood Count 8.1 X10*3/uL (4.8-10.8)
[2021-09-23 12:53] LABS: Lactic Acid 1.2 mmol/L (0.5-2.0)
[2021-09-23 12:56] LABS: C Reactive Protein 2.32 mg/dL (< or = 0.50)
[2021-09-23 13:18] LABS: Erythrocyte Sedimentation Rate 58 MM/HR (0-15)
== END 2021-09-23 14:29 | disposition home or self-care (01) ==
PROVIDERS: Nurse Practitioner Family; Emergency Provider Emergency Medicine; PCP Internal Medicine
DX: I73.9 Peripheral vascular disease, unspecified (principal); T87.89 Other complications of amputation stump; Y83.5 Amputation of limb(s) as the cause of abnormal reaction of the patient, or of later complication, without mention of misadventure at the time of the procedure; Y92.9 Unspecified place or not applicable; I11.0 Hypertensive heart disease with heart failure; I50.22 Chronic systolic (congestive) heart failure; I48.0 Paroxysmal atrial fibrillation; E11.9 Type 2 diabetes mellitus without complications; D64.9 Anemia, unspecified; Z89.422 Acquired absence of other left toe(s)
CPT/HCPCS: 36415; 83605; 85025; 85652; 86140; 99283

== ENCOUNTER 2021-10-17 08:55 | Outpatient (RCR) | payer MEDICARE, SELFPAY | END 2021-12-12 13:44 | disposition home or self-care (01) | LOC: HO.WCC 08:55 | PROVIDERS: PCP Internal Medicine; Visit Provider Physician Assistant | DX: Z09 Encounter for follow-up examination after completed treatment for conditions other than malignant neoplasm (principal); E11.9 Type 2 diabetes mellitus without complications; Z89.422 Acquired absence of other left toe(s); Z86.31 Personal history of diabetic foot ulcer | CPT/HCPCS: 11042; 15275; 99212; Q4187 ==

== ENCOUNTER 2022-02-26 08:00 | Outpatient (RCR) | payer MEDICARE, SELFPAY ==
--- NOTE | ~2022-02-26 | XR_ITS ---
EXAMINATION: XR CALCANEUS, RIGHT CLINICAL INFORMATION: Calcaneal pain. Evaluate for osteomyelitis. COMPARISON: None TECHNIQUE: Lateral and axial views of the right calcaneus were obtained. FINDINGS: There is moderate size calcaneal heel and moderate-sized retrocalcaneal enthesophytes. The ankle mortise and subtalar joints are normal. The soft tissues are normal. XR/XR calcaneus RT min 2V IMPRESSION: Moderate size calcaneal heel and retrocalcaneal enthesophytes. No visible acute fracture or dislocation seen.
== END 2022-05-29 11:00 | disposition home or self-care (01) ==
LOC: HO.WCC 08:00
PROVIDERS: PCP Internal Medicine; Visit Provider Surgery
DX: E11.621 Type 2 diabetes mellitus with foot ulcer (principal); E11.51 Type 2 diabetes mellitus with diabetic peripheral angiopathy without gangrene; L97.414 Non-pressure chronic ulcer of right heel and midfoot with necrosis of bone; E11.69 Type 2 diabetes mellitus with other specified complication; M86.071 Acute hematogenous osteomyelitis, right ankle and foot; R60.9 Edema, unspecified; E11.40 Type 2 diabetes mellitus with diabetic neuropathy, unspecified; I10 Essential (primary) hypertension; I48.91 Unspecified atrial fibrillation; Z79.2 Long term (current) use of antibiotics
CPT/HCPCS: 11042; 11044; 11045; 11047; 15275; 73650; 87070; 87205; 99183; 99212; 99213; Q4196